=== PATIENT | male | born 1965 | race Caucasian/White ===

== ENCOUNTER 2018-10-27 07:36 | Emergency (ER) | payer MEDICAID, OTHER ==
[2018-10-27] MEDS ORDERED: Nitro 2% OINT* (Nitroglycerin) 1 INCH/PAK PAK TOPICAL ONE (07:57)
[2018-10-27] MEDS ORDERED: Aspirin 81 mg CHEW TAB* 81 MG TAB.CHEW PO ONE (07:57)
--- NOTE | 2018-10-27 08:03 | ED ---
HPI Chest Pain - HPI Summary HPI Summary: Patient is a 53 y/o M presenting to ED with complaints of intermittent, midsternal chest pain since 2129 last night, 10/26/18. He notes radiation of pain down his left arm and endorses SOB. He denies numbness/tingling. Chest pain is not present currently, but he notes it was a few minutes ago. On triage , pain is rated 7/10, nothing is noted to aggravate/alleviate Sx. PMHx of HTN and diabetes are denied, but PMHx of GERD is endorsed. FMHx of CAD, diabetes, and stroke is noted. He claims that he has not seen doctor in six years. Patient is a current smoker, uses alcohol rarely, and denies substance usage. Home medications and allergies are reviewed. 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 - History of Current Complaint Chief Complaint: EDChestPainROMI Time Seen by Provider: 10/27/18 07:47 Hx Obtained From: Patient Onset/Duration: Started Hours Ago, Resolved Timing: Intermittent Initial Severity: Severe Current Severity: None Pain Intensity: 7 Pain Scale Used: 0-10 Numeric Chest Pain Location: Mid Sternal Chest Pain Radiates: Yes Chest Pain Radiates To:: Arm - left Aggravating Factor(s): Nothing Alleviating Factor(s): Nothing Associated Signs and Symptoms: Positive: Chest Pain, Shortness of Breath. Negative: Numbness, Tingling - Allergy/Home Medications Allergies/Adverse Reactions: Allergies Allergy/AdvReac Type Severity Reaction Status Date / Time hydrocodone [From [place]] Allergy Unknown See Comment Verified 10/27/18 08:01 oxycodone Allergy Unknown Palpitation Verified 10/27/18 08:00 s/SOB povidone-iodine Allergy Unknown See Comment Verified 10/27/18 08:00 [From Betadine] soap [From Betad[place]] Allergy Unknown See Comment Verified 10/27/18 08:00 muscle relaxers Allergy Unknown See Comment Uncoded 10/27/18 08:00 Home Medications: Home Medications Ibuprofen TAB* [Advil TAB*] 400 mg PO Q6H PRN 10/27/18 [History Confirmed ] PMH/Surg Hx/FS Hx/Imm Hx Endocrine/Hematology History: Denies: Hx Bone Marrow Disease, Hx Diabetes, Hx Thyroid Disease, Hx Anemia Cardiovascular History: Denies: Hx Congestive Heart Failure, Hx Coronary Artery Disease, Hx Hypertension - KEEPS TRACK AND BP IS NORMAL, Hx Pacemaker/ICD, Other Cardiovascular Problems/Disorders Respiratory History: Denies: Hx Asthma, Hx Sleep Apnea GI History: Reports: Hx Gastroesophageal Reflux Disease - TAKES TUMS. DEPENDS ON WHAT HE EATS. GETS EVERY FEW DAYS, Other GI Disorders - stomach infecton,ABD burning, COLONOSCOPY EGD.- 7 YEARS AGO-no problems now Denies: Hx Cirrhosis, Hx Crohn's Disease, Hx Irritable Bowel, Hx Jaundice History: Denies: Hx Kidney Infection, Hx Kidney Stones, Hx Renal Disease, Other Problems/Disorders Musculoskeletal History: Reports: Other Musculoskeletal History - SURGERY ON BOTH KNEES- ABOUT 5YEARS Denies: Hx Arthritis, Hx Bursitis, Hx Tendonitis Sensory History: Reports: Hx Contacts or Glasses - glasses Denies: Hx Cataracts, Hx Hearing Aid Opthamlomology History: Reports: Hx Contacts or Glasses - glasses Denies: Hx Cataracts Neurological History: Denies: Hx Headaches, Hx Migraine, Hx Nerve Disease Psychiatric History: Denies: Hx Anxiety, Hx Depression, Hx Panic Disorder - Surgical History Surgery Procedure, Year, and Place: 2006 ABDOMINAL [place]IA REPAIR, [place]. 2013 [place]ICAL [place]IR, [place]. 2011 B[place]AL ARTHROSCOPIES, [place]. 12/2014 LEFT ELBOW [email or web address] Hx Anesthesia Reactions: Yes - 2014-WAS TOLD HE HAD PALPITATIONS DURING SURGERY , NO FOLLOWUP - Immunization History Date of Influenza Vaccine: N Infectious Disease History: No Infectious Disease History: Denies: Hx Hepatitis, Traveled Outside the [place] in Last 30 Days - Family History Known Family History: Positive: Hypertension, Diabetes, Other - FMHx of stroke - Social History Alcohol Use: Rare Substance Use Type: Reports: None Smoking Status (MU): Current Every Day Smoker Type: Cigarettes Amount Used/How Often: 1PPD Length of Time of Smoking/Using Tobacco: 5 YEARS Have You Smoked in the Last Year: Yes Review of Systems Positive: Chest Pain Positive: Shortness Of Breath Neurological: Other - negative - tingling Negative: Numbness All Other Systems Reviewed And Are Negative: Yes Physical Exam - Summary Physical Exam Summary: Appearance: Well appearing, no pain distress Skin: warm, dry, reflects adequate perfusion Head/face: normal Eyes: EOMI, MEET ENT: normal Neck: supple, non-tender Respiratory: CTA, breath sounds present Cardiovascular: RRR, pulses symmetrical Abdomen: non-tender, soft Musculoskeletal: normal, strength/ROM intact Neuro: normal, sensory motor intact, A&Ox3 Triage Information Reviewed: Yes Vital Signs On Initial Exam: Initial Vitals Temp Pulse Resp BP Pulse Ox 97.5 F 56 19 180/97 100 10/27/18 07:40 10/27/18 07:40 10/27/18 07:40 10/27/18 07:40 10/27/18 07:40 Vital Signs Reviewed: Yes Diagnostics - Vital Signs Vital Signs Temp Pulse Resp BP Pulse Ox 10/27/18 07:46 55 17 153/107 96 10/27/18 07:40 97.5 F 56 19 180/97 100 - Laboratory Result Diagrams: 10/27/18 08:02 10/27/18 08:02 Lab Statement: Any lab studies that have been ordered have been reviewed, and results considered in the medical decision making process. - Radiology CXR Radiology Interpretation Completed By: Radiologist Summary of Radiographic Findings: IMPRESSION: No radiographic evidence for acute cardiopulmonary abnormality on this. portable chest x-ray. THIS REPORT WAS REVIEWED BY DR. EASTMAN. - EKG 0737 Cardiac Rate: Bradycardia - rate of 56 BPM EKG Rhythm: Sinus Bradycardia ST Segment: Non-Specific 0850 Cardiac Rate: Bradycardia - rate of 52 BPM. EKG Rhythm: Sinus Bradycardia ST Segment: Non-Specific Re-Evaluation - Re-Evaluation First Eval Re-Evaluation Time: 10:04 Comment: Patient is insistent on leaving before completed workup. Risks of leaving were discussed, including permanent disability and . Despite extensive discussion and understanding of possible consequences, patient still desires to leave AMA. Patient was instructed to return to ED for any new or worsening symptoms, patient left AMA. Chest Pain Course/Dx - Course Course Of Treatment: Patient is a 53 y/o M presenting to ED with complaints of intermittent, midsternal chest pain since 2129 last night, 10/26/18. He notes radiation of pain down his left arm and endorses SOB. He denies numbness/ tingling. Chest pain is not present currently, but he notes it was a few minutes ago. On triage, pain is rated 7/10, nothing is noted to aggravate/ alleviate Sx. PMHx of HTN and diabetes are denied, but PMHx of GERD is endorsed. FMHx of CAD, diabetes, and stroke is noted. Patient is a current smoker, uses alcohol rarely, and denies substance usage. Physical exam is unremarkable. Bloodwork obtained. First trop 0.02. Durnig ED course, patient received protonix 40 mg PO, nitro ointment, 0.5 inch TOPICAL, and ASA 324 mg PO. CXR IMPRESSION: No radiographic evidence for acute cardiopulmonary abnormality on this. portable chest x-ray. First EKG showed sinus bradycardia with rate of 56 BPM, non-specific ST-T changes. Second EKG showed showed sinus bradycardia with rate of 52 BPM, non-specific ST-T changes. Patient is insistent on leaving before completed workup. Risks of leaving were discussed, including permanent disability and . Despite extensive discussion and understanding of possible consequences, patient still desires to leave AMA. Patient was instructed to return to ED for any new or worsening symptoms, patient left AMA. - Chest Pain Differential Diagnosis/HQI/PQRI: Angina, Chest Wall, Lower Respiratory Infection - Diagnoses Provider Diagnoses: Chest pain, Unstable angina Discharge - Sign-Out/Discharge Documenting (check all that apply): Patient Departure - AMA Patient Received Moderate/Deep Sedation with Procedure: No - Discharge Plan Condition: Good Disposition: HOME Patient Education Materials: Angina (ED), Chest Pain (ED) Referrals: Care [facility] [Outside] - 3 Days Additional Instructions: YOU ARE LEAVING FROM THE EMERGENCY DEPARTMENT AGAINST MEDICAL ADVICE. PLEASE RETURN TO ED FOR ANY NEW OR WORSENING SYMPTOMS. FOLLOW-UP WITH YOUR PRIMARY CARE PHYSICIAN WITHIN THREE DAYS. - Billing Disposition and Condition Condition: GOOD Disposition: Home - Attestation Statements Document Initiated by Brennenibpuma: Yes Documenting Scribe: KARINE WADLRON Provider For Whom Courtney is Documenting (Include Credential): ISAK EASTMAN MD Scribe Attestation: I, KARINE WALDRON, scribed for IASK EASTMAN MD on 10/27/18 at 1232. Scribe Documentation Reviewed: Yes Provider Attestation: The documentation as recorded by the KARINE orellana accurately reflects the service I personally performed and the decisions made by me, ISAK EASTMAN MD Status of Scribe Document: Viewed
[2018-10-27 08:08] LABS: ABS Basophils 0.1 10^3/ul (0-0.2); ABS Eosinophils 0.2 10^3/ul (0-0.6); ABS Lymphocytes 2.5 10^3/ul (1.0-4.8); ABS Monocytes 0.9 10^3/ul (0-0.8); ABS Neutrophils 9.1 10^3/ul (1.5-7.7); Eosinophil % 1.6 %; Hematocrit 47 % (42-52); Lymphocyte % 19.4 %; Mean Corpuscular HGB Conc 34 g/dL (31-36); Mean Corpuscular Hemoglobin 31 pg (27-31); Mean Corpuscular Volume 89 fL (80-94); Mean Platelet Volume 8.8 fL (7.4-10.4); Nucleated Red Blood Cells % 0.1; Platelet Count 240 10^3/uL (150-450); Red Blood Count 5.23 10^6 /uL (4.18-5.48); Red Cell Distribution Width 15 % (10-15); White Blood Count 12.7 10^3/uL (3.5-10.8)
[2018-10-27 08:16] LABS: INR 0.89 (0.82-1.09)
[2018-10-27 08:26] LABS: Albumin 4.3 g/dL (3.2-5.2); Albumin/Globulin Ratio 1.5 (1-3); BUN/Creatinine Ratio 11.3 (8-20); Calcium 9.5 mg/dL (8.6-10.3); EGFR African American 80.2 (>60); EGFR Non-African American 66.3 (>60); Globulin 2.9 g/dL (2-4); Total Bilirubin 0.4 mg/dL (0.2-1.0); Total Protein 7.2 g/dL (6.4-8.9)
[2018-10-27 08:27] LABS: Troponin I 0.02 ng/mL (<0.04)
[2018-10-27] MEDS ORDERED: Pantoprazole TAB * 40 MG TAB PO ONE (08:48)
[2018-10-27 10:09] VITALS: BP 141/88
== END 2018-10-27 10:08 | disposition home or self-care (01) ==
LOC: ED 07:36
DX: R07.89 Other chest pain (principal); I20.0 Unstable angina; R00.1 Bradycardia, unspecified; R06.02 Shortness of breath; M79.602 Pain in left arm; K21.9 Gastro-esophageal reflux disease without esophagitis; Z88.3 Allergy status to other anti-infective agents; Z88.5 Allergy status to narcotic agent; Z88.8 Allergy status to other drugs, medicaments and biological substances; Z82.49 Family history of ischemic heart disease and other diseases of the circulatory system; Z83.3 Family history of diabetes mellitus; Z82.3 Family history of stroke; F17.210 Nicotine dependence, cigarettes, uncomplicated
CPT/HCPCS: 36415; 71045; 80053; 83690; 84484; 85025; 85610; 93005; 99283; A9270-GY

== ENCOUNTER 2018-10-30 23:42 | Inpatient (IN) | payer MEDICAID ==
[2018-10-31] MEDS ORDERED: Aspirin TAB* 325 MG PO ONE (00:07)
[2018-10-31] MEDS ORDERED: Ondansetron INJ* 2 MG/ML VIAL IV ONE (00:20)
[2018-10-31] MEDS ORDERED: Morphine 4 MG/ML VIAL (1 ml) 4 MG/ML VIAL IV ONE (00:20)
[2018-10-31 00:37] LABS: ABS Basophils 0.1 10^3/ul (0-0.2); ABS Eosinophils 0.3 10^3/ul (0-0.6); ABS Lymphocytes 3.1 10^3/ul (1.0-4.8); ABS Monocytes 0.9 10^3/ul (0-0.8); ABS Neutrophils 6.2 10^3/ul (1.5-7.7); Eosinophil % 2.6 %; Hematocrit 45 % (42-52); Hemoglobin 15.6 g/dL (14.0-18.0); Lymphocyte % 28.8 %; Mean Corpuscular HGB Conc 35 g/dL (31-36); Mean Corpuscular Hemoglobin 31 pg (27-31); Mean Corpuscular Volume 90 fL (80-94); Mean Platelet Volume 9.2 fL (7.4-10.4); Platelet Count 249 10^3/uL (150-450); Red Blood Count 5.05 10^6 /uL (4.18-5.48); Red Cell Distribution Width 15 % (10-15); White Blood Count 10.6 10^3/uL (3.5-10.8)
[2018-10-31] MEDS ORDERED: Aspirin 81 mg CHEW TAB* 81 MG TAB.CHEW PO ONE (00:40)
[2018-10-31 00:41] LABS: INR 0.87 (0.82-1.09)
[2018-10-31 00:47] LABS: ALT 15 U/L (7-52); AST 13 U/L (13-39); Albumin 4.1 g/dL (3.2-5.2); Albumin/Globulin Ratio 1.6 (1-3); Alkaline Phosphatase 109 U/L (34-104); Anion Gap 7 mmol/L (2-11); BUN/Creatinine Ratio 12.3 (8-20); Blood Urea Nitrogen 15 mg/dL (6-24); C Reactive Protein 9.74 mg/L (<8.01); CO2 Carbon Dioxide 23 mmol/L (22-32); Chloride 109 mmol/L (101-111); EGFR African American 74.9 (>60); EGFR Non-African American 61.9 (>60); Globulin 2.6 g/dL (2-4); Glucose 118 mg/dL (70-100); Magnesium 2.2 mg/dL (1.9-2.7); Potassium 4.2 mmol/L (3.5-5.0); Sodium 139 mmol/L (135-145); Total Protein 6.7 g/dL (6.4-8.9)
[2018-10-31 00:50] LABS: Troponin I 0.27 ng/mL (<0.04)
[2018-10-31] MEDS ORDERED: Enoxaparin(*) 80 MG/0.8 ML SYR SUBCUT ONE ×2 (00:52)
[2018-10-31] MEDS ORDERED: Clopidogrel TAB* 300 MG PO ONE ×3 (00:52→13:00)
[2018-10-31] MEDS ORDERED: Heparin VIAL(*) 5000 UNITS/ML VIAL (FIVE THOUSAND) IV SCH ×2 (01:00→13:00)
--- NOTE | 2018-10-31 01:02 | ED ---
HPI Chest Pain - HPI Summary HPI Summary: Patient complains of sudden onset sternal chest pain radiating into jaw and left arm with associated shortness of breath starting at 9 PM tonight. Pain described as constant with intermittent spikes, with 10/10 pain at worst. Pain currently 4/10 here in the ED. Patient was at rest when symptoms started. Patient had similar symptoms on 10/27 and was evaluated here at the ED and left AMA. Patient states he has been having intermittent chest pain for months with associated SOB. Patient apparently has not seen PCP in 6 years. Patient saw PCP today for post ED follow-up and was told he had a heart attack on 10/27, started on beta noe today and ASA 81 mg daily. Patient also states history of cough 6 or 7 months. Patient has history of untreated hypertension, bradycardia, GERD, "minor stroke" 10 years ago. Patient is smoker, occasional EtOH, denies recreational drug use. - History of Current Complaint Chief Complaint: EDChestPainROMI Time Seen by Provider: 10/31/18 00:00 Hx Obtained From: Patient Onset/Duration: Started Hours Ago Timing: Constant Initial Severity: Severe Current Severity: Mild Pain Intensity: 4 Pain Scale Used: 0-10 Numeric Chest Pain Location: Discrete at:, Mid Sternal Chest Pain Radiates: Yes Chest Pain Radiates To:: Arm, Jaw Aggravating Factor(s): Exertion, Rest Alleviating Factor(s): Nothing Associated Signs and Symptoms: Positive: Chest Pain, Shortness of Breath - Allergy/Home Medications Allergies/Adverse Reactions: Allergies Allergy/AdvReac Type Severity Reaction Status Date / Time hydrocodone [From [place]] Allergy Unknown See Comment Verified 10/30/18 23:59 oxycodone Allergy Unknown Palpitation Verified 10/30/18 23:59 s/SOB povidone-iodine Allergy Unknown See Comment Verified 10/30/18 23:59 [From Betadine] soap [From Betadine] Allergy Unknown See Comment Verified 10/30/18 23:59 muscle relaxers Allergy Unknown See Comment Uncoded 10/30/18 23:59 Home Medications: Home Medications Aspirin [Aspir-Low] 81 mg PO DAILY 10/30/18 [History Confirmed 10/31/18] Metoprolol Tartrate TAB* [Lopressor TAB*] 25 mg PO DAILY 10/30/18 [History Confirmed 10/30/18] Esomeprazole(NF) [NEXium(NF)] 20 mg PO DAILY 10/31/18 [History Confirmed ] PMH/Surg Hx/FS Hx/Imm Hx Endocrine/Hematology History: Denies: Hx Bone Marrow Disease, Hx Diabetes, Hx Thyroid Disease, Hx Anemia Cardiovascular History: Denies: Hx Congestive Heart Failure, Hx Coronary Artery Disease, Hx Hypertension - KEEPS TRACK AND BP IS NORMAL, Hx Pacemaker/ICD, Other Cardiovascular Problems/Disorders Respiratory History: Denies: Hx Asthma, Hx Sleep Apnea GI History: Reports: Hx Gastroesophageal Reflux Disease - TAKES TUMS. DEPENDS ON WHAT HE EATS. GETS EVERY FEW DAYS, Other GI Disorders - stomach infecton,ABD burning, COLONOSCOPY EGD.- 7 YEARS AGO-no problems now Denies: Hx Cirrhosis, Hx Crohn's Disease, Hx Irritable Bowel, Hx Jaundice History: Denies: Hx Kidney Infection, Hx Kidney Stones, Hx Renal Disease, Other Problems/Disorders Musculoskeletal History: Reports: Other Musculoskeletal History - SURGERY ON BOTH KNEES- ABOUT 5YEARS Denies: Hx Arthritis, Hx Bursitis, Hx Tendonitis Sensory History: Reports: Hx Contacts or Glasses - glasses Denies: Hx Cataracts, Hx Hearing Aid Opthamlomology History: Reports: Hx Contacts or Glasses - glasses Denies: Hx Cataracts Neurological History: Denies: Hx Headaches, Hx Migraine, Hx Nerve Disease Psychiatric History: Denies: Hx Anxiety, Hx Depression, Hx Panic Disorder - Surgical History Surgery Procedure, Year, and Place: 2006 ABDOMINAL [place] RE[place]IR, [place]. 2013 [place]ICAL [place], [place]. 2010 [place]ROSCOPIES, [place]. [email or web address] Anesthesia Reactions: Yes - 2014-WAS TOLD HE HAD PALPITATIONS DURING SURGERY , NO FOLLOWUP - Immunization History Date of Influenza Vaccine: N Infectious Disease History: No Infectious Disease History: Denies: Hx Hepatitis, Traveled Outside the [place] in Last 30 Days - Family History Known Family History: Positive: Hypertension, Diabetes, Other - FMHx of stroke - Social History Alcohol Use: Rare Substance Use Type: Reports: None Smoking Status (MU): Current Every Day Smoker Type: Cigarettes Amount Used/How Often: 1PPD Length of Time of Smoking/Using Tobacco: 5 YEARS Have You Smoked in the Last Year: Yes Review of Systems Constitutional: Negative Eyes: Negative ENT: Negative Positive: Chest Pain Positive: Shortness Of Breath, Cough Gastrointestinal: Negative Genitourinary: Negative Musculoskeletal: Negative Skin: Negative Neurological: Negative Psychological: Normal All Other Systems Reviewed And Are Negative: Yes Physical Exam Triage Information Reviewed: Yes Vital Signs On Initial Exam: Initial Vitals Temp Pulse Resp BP Pulse Ox 98.4 F 57 16 122/78 96 10/30/18 23:53 10/30/18 23:53 10/30/18 23:53 10/30/18 23:53 10/30/18 23:53 Vital Signs Reviewed: Yes Appearance: Positive: Well-Appearing Skin: Positive: Warm Head/Face: Positive: Normal Head/Face Inspection Eyes: Positive: Normal Neck: Positive: Supple Respiratory/Lung Sounds: Positive: Clear to Auscultation Cardiovascular: Positive: RRR Abdomen Description: Positive: Nontender Musculoskeletal: Positive: Normal Neurological: Positive: Normal Psychiatric: Positive: Normal AVPU Assessment: Alert - [place] Coma Scale Best Eye Response: 4 - Spontaneous Best Motor Response: 6 - Obeys Commands Best Verbal Response: 5 - Oriented Coma Scale Total: 15 Diagnostics - Vital Signs Vital Signs Temp Pulse Resp BP Pulse Ox 10/31/18 00:36 16 10/31/18 00:00 57 17 94 10/30/18 23:57 58 96 10/30/18 23:56 58 122/78 96 10/30/18 23:53 98.4 F 57 16 122/78 96 - Laboratory Lab Results: Lab Results 10/31/18 10/31/18 10/31/18 Range/Units 00:18 00:22 00:22 WBC 10.6 (3.5-10.8) 10^3/uL RBC 5.05 (4.18-5.48) 10^6 /uL Hgb 15.6 (14.0-18.0) g/dL Hct 45 (42-52) % MCV 90 (80-94) fL MCH 31 (27-31) pg MCHC 35 (31-36) g/dL RDW 15 (10-15) % Plt Count 249 (150-450) 10^3/uL MPV 9.2 (7.4-10.4) fL Neut % (Auto) 59.0 % Lymph % (Auto) 28.8 % [place] % (Auto) 8.4 % Eos % (Auto) 2.6 % Baso % (Auto) 1.2 % Absolute Neuts (auto) 6.2 (1.5-7.7) 10^3/ul Absolute Lymphs (auto) 3.1 (1.0-4.8) 10^3/ul Absolute Monos (auto) 0.9 H (0-0.8) 10^3/ul Absolute Eos (auto) 0.3 (0-0.6) 10^3/ul Absolute Basos (auto) 0.1 (0-0.2) 10^3/ul Absolute Nucleated RBC 0.0 10^3/ul Nucleated RBC % 0.0 INR (Anticoag Therapy) 0.87 (0.82-1.09) Sodium 139 (135-145) mmol/L Potassium 4.2 (3.5-5.0) mmol/L Chloride 109 (101-111) mmol/L Carbon Dioxide 23 (22-32) mmol/L Anion Gap 7 (2-11) mmol/L BUN 15 (6-24) mg/dL Creatinine 1.22 H (0.67-1.17) mg/dL Est GFR ( Amer) 74.9 (>60) Est GFR (Non-Af Amer) 61.9 (>60) BUN/Creatinine Ratio 12.3 (8-20) Glucose 118 H (70-100) mg/dL Calcium 10.0 (8.6-10.3) mg/dL Magnesium 2.2 (1.9-2.7) mg/dL Total Bilirubin 0.30 (0.2-1.0) mg/dL AST 13 (13-39) U/L ALT 15 (7-52) U/L Alkaline Phosphatase 109 H (34-104) U/L Troponin I 0.27 H* (<0.04) ng/mL C-Reactive Protein 9.74 H (<8.01) mg/L Total Protein 6.7 (6.4-8.9) g/dL Albumin 4.1 (3.2-5.2) g/dL Globulin 2.6 (2-4) g/dL Albumin/Globulin Ratio 1.6 (1-3) Lipase 24 (11.0-82.0) U/L TSH Pending Result Diagrams: 10/31/18 00:18 10/31/18 00:22 Lab Statement: Any lab studies that have been ordered have been reviewed, and results considered in the medical decision making process. Chest Pain Course/Dx - Course Course Of Treatment: Patient complains of sudden onset sternal chest pain radiating into jaw and left arm with associated shortness of breath starting at 9 PM tonight. Pain described as constant with intermittent spikes, with 10/10 pain at worst. Pain currently 4/10 here in the ED. Patient was at rest when symptoms started. Patient had similar symptoms on 12/28 and was evaluated here at the ED and left AMA. Patient states he has been having intermittent chest pain for months with associated SOB. Patient apparently has not seen PCP in 6 years. Patient saw PCP today for post ED follow-up and was told he had a heart attack on 10/27, started on beta noe today and ASA 81 mg daily. Patient also states history of cough 6 or 7 months. Patient has history of one treated hypertension, GERD, "minor stroke" 10 years ago. Patient is smoker, occasional EtOH, denies recreational drug use. Patient bradycardic. History of same. Vital signs otherwise within normal limits. Creatinine 1.22. Initial troponin 0.27. EKG sinus bradycardia, no significant change from prior. Chest x-ray unremarkable. Patient admitted to hospitalist for NSTEMI. - Diagnoses Provider Diagnoses: NSTEMI (non-ST elevated myocardial infarction) Discharge - Sign-Out/Discharge Documenting (check all that apply): Patient Departure Patient Received Moderate/Deep Sedation with Procedure: No - Discharge Plan Condition: Stable Disposition: ADMITTED TO [facility] Referrals: No Primary Care Phys,NOPCP [Primary Care Provider] - - Billing Disposition and Condition Condition: STABLE Disposition: Admitted to [facility]
[2018-10-31 01:19] LABS: TSH (Thyroid Stimulating Horm) 4.62 mcIU/mL (0.34-5.60)
[2018-10-31] MEDS ORDERED: Nitro 2% OINT* (Nitroglycerin) 1 INCH/PAK PAK TOPICAL ONE ×2 (01:24)
[2018-10-31] MEDS ORDERED: Famotidine IV* 10 MG/ML 2 ML (20 mg) IV SLOW PU ONE (01:25)
[2018-10-31] MEDS ORDERED: Morphine INJ* 2 MG/ML 1 ML SYRINGE (TWO MG - NEW SYRINGE VERSION) IV PRN (01:28)
[2018-10-31] MEDS ORDERED: Al Hydrox/Mg Hydrox/Simet LIQ* 30 ML UDC PO PRN (01:28)
[2018-10-31] MEDS ORDERED: NS 0.9% 1000 ML** 1,000 ML IV SCH (01:45)
[2018-10-31 02:05] LABS: Activated Partial Thrombo Time 34.2 seconds (26.0-38.0)
[2018-10-31 03:26] LABS: Troponin I 0.36 ng/mL (<0.04)
--- NOTE | 2018-10-31 04:48 | HP ---
CC: Dr. Alfa Rae, [facility] * HISTORY AND PHYSICAL: DATE OF ADMISSION: 10/31/18 PRIMARY CARE PROVIDER: ANASTASIIA Ridley, [facility]. ATTENDING PHYSICIAN: Dr. Tasia Murphy * (dictated by Marge Martinez NP). CHIEF COMPLAINT: Chest pain. HISTORY OF PRESENT ILLNESS: Mr. Rudd is a 53-year-old male with past medical history of hypertension, who presents to the emergency room with complaints of chest pain. The patient reports that he has had chest pain related to heartburn for quite a number of years. This pain typically subsides with taking Tums or similar medication. He notes that on 10/27/18, he developed chest pain which he describes as midsternal stabbing pain, which was radiating to his left jaw and left arm. This pain did not resolve and because of his concern, he presented to the emergency room. In the emergency room, his pain did resolve after receiving nitro, and it was recommended that he be admitted, though the patient did leave AMA at that time as he needed to take his grandchildren somewhere. He has not had any pain for the last couple of days. He did see his PCP this morning, who placed him on aspirin and metoprolol. He additionally has been taking Nexium every day for the last few days. Tonight around 2200, after eating, he laid down on the couch and developed again this midsternal stabbing pain, which was 10 out of 10 at its worse, radiating to the left arm and left jaw. The pain did go away after a few minutes, and he went to lie down in bed, and at that point, the pain recurred. He did not attempt to take any Tums this evening. On my exam, the patient reports 4 out of 10 chest pain, though he states this is his baseline, secondary to heartburn, and he is quite comfortable at 4 out of 10, although towards the end of my exam, the patient's pain began to recur. His girlfriend at the bedside does note that approximately 6 years ago, he was told that he had some calcification of his aorta. I will also note that the patient reports a history of hypertension and had been on medication for some time, though has been off medication for the last few years as he did not have insurance and could not pay for it. In the emergency room, the patient did not have any acute EKG changes; however, he was noted to have a troponin of 0.27. Vitals have been stable. He was given a dose of morphine for the pain, which did help to some extent, though again during my exam, the pain recurred. He was additionally given aspirin, Plavix, Zofran, and Lovenox. Because of the concern for acute coronary syndrome , the hospitalist service was asked to evaluate for admission. PAST MEDICAL HISTORY: 1. Hypertension. PAST SURGICAL HISTORY: 1. Umbilical hernia repair. 2. Ventral hernia repair. HOME MEDICATIONS: 1. Aspirin 81 mg p.o. daily. 2. Esomeprazole 20 mg p.o. daily. 3. Metoprolol tartrate 25 mg p.o. b.i.d. ALLERGIES: HYDROCODONE, OXYCODONE, BETADINE, and MUSCLE RELAXERS. FAMILY HISTORY: The patient's mother of COPD. He reports his father had a CABG when he was about 80 years old and has a pacemaker, though he is not entirely sure why. SOCIAL HISTORY: The patient has been smoking 1-1/2 packs per day since he was a teenager, although he did quit for at least 2 years sometime within the last 10 years. He denies any alcohol or recreational drug use. 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 He lives with his girlfriend Zeinab, who will be his surrogate decision maker in the event he is unable to make his own decisions. REVIEW OF SYSTEMS: An 11-point review of systems was performed and all the pertinent positive and negative findings are in the HPI. All other systems are negative. PHYSICAL EXAMINATION GENERAL: Mr. Rudd is a well-developed, well-nourished, middle-aged white male , sitting up in bed, in no acute distress. He appears his stated age. VITAL SIGNS: Temp 98.4, heart rate 56, respiratory rate 20, oxygen saturation 96% on room air, blood pressure 127/84. HEENT: Head is atraumatic, normocephalic. Visual nicholas are grossly intact. Pupils equal, round, and reactive to light and accommodation. Extraocular movements are intact. Sclerae without icterus. Oral mucous membranes moist. NECK: Thyroid nonpalpable. Trachea midline. No lymphadenopathy. RESPIRATORY: Symmetrical chest expansion. No chest wall deformities. Lungs have fine crackles to bilateral bases. Otherwise clear throughout. CARDIOVASCULAR: Regular rate and rhythm. S1, S2 present. No murmurs, rubs, or gallops. No JVD. Chest pain is reproducible by palpation of the sternum and epigastric area. ABDOMEN: Soft, nontender to palpation. Bowel sounds normoactive throughout. EXTREMITIES: Skin warm and smooth bilaterally. No edema. No clubbing or cyanosis. NEUROLOGIC: Awake, alert, and oriented x4. Cranial nerves II through XII grossly intact. Moves all extremities. DIAGNOSTIC STUDIES/LAB DATA: WBC 10.6, RBC 5.05, hemoglobin 15.6, hematocrit 45, platelets 249. INR 0.87. Sodium 139, potassium 4.2, chloride 109, carbon dioxide 23, BUN 15, creatinine 1.22, glucose 118, troponin 0.27. EKG shows sinus bradycardia with a rate of 59. QTc 420. No ST changes. Chest x-ray to my read shows no active cardiopulmonary disease. ASSESSMENT AND PLAN: Mr. Rudd is a 53-year-old male with past medical history of hypertension, who presents to the emergency room today with complaints of chest pain and was found to have an elevated troponin. The patient will be admitted under observation for: 1. Chest pain. The patient does have a history of gastroesophageal reflux disease, though notes that this pain is different as it radiates to his left arm and jaw, and this is the second episode of his pain within the last couple of days. He did not have any EKG changes, but is noted to have an elevated troponin at 0.27. Again, on my exam, he was having minimal pain, which he stated was around his baseline, though pain began to increase. I did order some nitro paste and famotidine to see if it can resolve this chest pain. At this point, I will hold off on calling [employer]. They will certainly need to be called in the morning, though as long as we can get his chest pain under control, I think it would be fine to just watch him overnight. Again, he was given aspirin, Plavix, and Lovenox in the emergency room. He received the Lovenox around 0100. I will place him on a heparin drip, though I will time this to start at 1300. I have additionally ordered morphine for any pain that is not resolved with nitro, though I suspect that nitro will likely resolve his pain as it was quite effective for him a few days ago. We will monitor him on telemetry. He will have his next troponin drawn at 0315 and I will repeat an EKG in the morning. I will keep him NPO at this time in the event that he needs to be taken to the clinical laboratory service teacher. 2. Hypertension. The patient is not hypertensive at this point and systolics are consistently in the 120s. I will continue him on his usual dose of metoprolol, though he did just start taking this today. 3. FEN: The patient does not require any electrolyte repletion. I will place him on normal saline at 75 mL per hour as he will be NPO overnight and into the morning until he is seen by Cardiology. 4. Code status: The patient will be a full code. 5. DVT prophylaxis: According to the DVT Risk Assessment, the patient scores a 2, putting him at moderate risk. Again, he did receive 1 dose of therapeutic Lovenox and a heparin drip will tentatively be started 12 hours from that dose. TIME SPENT: Approximately 60 minutes was spent on this admission, greater than half of that time spent [id number] with the patient obtaining my history, performing my physical exam, and reviewing the plan of care. This case has been reviewed with my attending, Dr. Murphy, who is in agreement with the plan of care. MARGE MARTINEZ NP [id number]/[facility] #: [id number] RON
[2018-10-31 06:59] LABS: Troponin I 0.43 ng/mL (<0.04)
[2018-10-31 07:38] LABS: Urine Appearance Clear; Urine Bilirubin Negative (Negative); Urine Blood Negative (Negative); Urine Color Yellow; Urine Glucose Negative (Negative); Urine Ketones Negative (Negative); Urine Nitrite Negative (Negative); Urine Protein Negative (Negative); Urine Specific Gravity 1.012 (1.010-1.030); Urine Urobilinogen Negative (Negative)
[2018-10-31] MEDS ORDERED: Metoprolol Tartrate TAB* 25 MG PO SCH ×3 (09:00→21:00)
[2018-10-31] MEDS ORDERED: Aspirin EC TAB* 81 MG TAB.EC PO SCH (09:00)
[2018-10-31 09:03] LABS: CKMB ng/mL 3.2 ng/mL (0.6-6.3)
[2018-10-31 09:17] LABS: Creatine Kinase 66 U/L (10-223)
[2018-10-31] MEDS ORDERED: Iohexol 350* (CONTRAST) 500 ML MDV IV ONE (09:25)
[2018-10-31] MEDS: Pantoprazole TAB * 40 MG TAB PO SCH (09:39)
[2018-10-31 10:07] LABS: Creatine Kinase 59 U/L (10-223)
[2018-10-31 10:10] LABS: CKMB ng/mL 2.7 ng/mL (0.6-6.3)
[2018-10-31 10:11] LABS: CKMB ng/mL 2.4 ng/mL (0.6-6.3)
[2018-10-31 10:57] LABS: HDL Cholesterol 30.7 mg/dL
--- NOTE | 2018-10-31 12:31 | CONS ---
CONSULTATION REPORT: DATE OF CONSULT: 10/31/18 ATTENDING PHYSICIAN: Dr. Charles Menjivar, Cardiology.* (DICTATED BY JOSE PARMAR NP) PRIMARY PHYSICIAN: Session at the primary care [place] office. PRIMARY CATERING AND EVENTS MANAGER: None. CHIEF COMPLAINT: Chest pain. HISTORY OF PRESENT ILLNESS: This is a pleasant 53-year-old male gentleman with a notable history of untreated hypertension, relative bradycardia, gastric reflux, reported H. pylori infection in 2008 and reported TIA/CVA at [facility] approximately 10 years ago. The patient states that he has had approximately 10-year history of intermittent chest pain. The patient states that episodes of chest pain have been accelerating in regards to intensity and frequency and also characteristics of pain. He adds that for the past 1 to 2 weeks he has been noticing substernal chest pain described as an ache radiating to left upper extremity and left side of his jaw. The patient adds the symptoms can occur with shortness of breath and diaphoresis. Episodes do not appear to be related to activity. He adopted his 5-year-old granddaughter and stays at home with her , where he routinely is chasing her and exerting himself and adds that this does not appear to reproduce pain; pain has been occurring with rest. Apparently last week while driving, he had an episode of near syncope. He states he started to develop dizziness with profound right-sided headache and visual changes that he describes as squiggly lines. Episode persisted for several hours. He states the episode was so severe, he actually called his girlfriend because he did not believe that he was going to be able to continue to drive. Please note that chest pain does not occur with these episodes. Apparently on 10/26/18 after returning home from the [facility] in [place], he started to develop resting chest pain described as an ache radiating down his left arm and into his jaw around 9:30 p.m. He also had associated shortness of breath. Apparently, the episode resolved after 15 to 20 minutes and he was able to go to bed. On 10/27/18, around 5:30 in the morning after waking up and sitting at the table, he started to develop recurrent episode of chest pain radiating down his left arm and into his jaw. Apparently episode persisted, thus he presented to [facility]. The patient states that his blood pressure at the time in the emergency department was 180/97. The patient was given nitroglycerin, which he states resolved his chest pain. His troponin was normal and there was no overt ischemic EKG changes. The patient did have relative bradycardia at that time. He apparently signed out AMA. He states that he had made previous commitments to his 5-year- old granddaughter to take her to a carnival that night. Apparently while at the carnival, he had a second episode of near syncope. Please note he did not have chest pain at this time. He states he started to develop a headache with visual changes that he describes as squiggly lines and dizziness that led to near syncope. He states he stood in the shade and eventually the symptom resolved. He drove himself home. He denies any recurrence of symptoms Monday evening, Monday, or Monday. Apparently, Monday, he saw his new PCP, Prashanth, around 9 o'clock in the morning. He states his blood pressure was notably elevated at that time. He adds that his new primary physician informed to him that he had a heart attack based on the review of his symptoms. The patient was started on aspirin 81 mg a day, Lopressor 25 mg twice a day, and Nexium therapy. Around 1 p.m. while watching TV, resting, he developed an episode of substernal chest pain described as an ache radiating down his left arm into his left side of his jaw with associated shortness of breath, episode lasted an hour and then resolved. Apparently, he had no recurrence of symptoms up until 9 p.m. last night, when he was getting ready to go to bed, he developed another episode of substernal chest pain symptomatology consistent with prior episode. Given recurrent symptoms, his girlfriend drove him in to [facility]. While being evaluated in the emergency department, basic labs were obtained. He had notable troponinemia of 0.27. Blood pressure at that time was 122/78. ECG did not show any significant ischemic changes. He was given full-dose Lovenox therapy and admitted to [address] [place] [address], where we were asked to see him in consultation for chest pain, rule out ACS. He is currently asymptomatic and denies any recurrent pain since being evaluated in the emergency department, when they administered nitroglycerin. PAST MEDICAL HISTORY: Notable for: 1. Hypertension. 2. Bradycardia. 3. GERD. 4. ? TIA/CVA at [facility] 10 years ago. 5. H. pylori 2008. PAST SURGICAL HISTORY: 1. Umbilical hernia repair. 2. Left shoulder surgery. 3. Abdominal hernia repair. 4. Debridement of left epicondylitis. HOME MEDICATIONS: 1. Aspirin 81 mg a day. 2. Lopressor 25 mg twice a day. 3. Nexium. Please note that all these medications were started on 10/30/18 by primary physician. ALLERGIES: 1. LORTAB, which causes a rash. 2. OXYCODONE causes shortness of breath, hallucinations. 3. MUSCLE RELAXANTS causes tachycardia. 4. BACITRACIN, rash. 5. Allergy to CONTRAST DYE, SHELLFISH, IODINE. FAMILY HISTORY: Noncontributory. SOCIAL HISTORY: The patient is a full code. He is unemployed. Denies drug use. Denies alcohol abuse. He smokes a [id number] cigarettes a day for the last 35 years. In regards to physical activity, he states active, caring for his 5-year- old adoptive granddaughter. REVIEW OF SYSTEMS: All systems have been reviewed and otherwise negative except as above mentioned in the HPI. PHYSICAL EXAMINATION: The patient has been lying in bed, cooperative with examination, appears in no apparent distress. HEENT: Head is atraumatic, normocephalic. Oral mucosa is moist. Tongue is midline. Neck: Supple. Trachea midline. No JVD. No carotid bruits. Cardiac: Alexis S1, S2. Regular rate and rhythm. No murmur, gallop, or rub noted. Lungs: Auscultated posteriorly. No evidence of adventitious breath sounds. /GI: Abdomen is distended, nontender. Normoactive bowel sounds x4. No hepatomegaly to palpation. Extremities: Strong bilateral dorsalis pedis pulse palpated bilaterally and symmetrically. No clubbing or cyanosis appreciated. DIAGNOSTIC STUDIES/LAB DATA: Blood work reviewed 10/31/18. Sodium 139, potassium 4.2, chloride 109, carbon dioxide 23, BUN 15, creatinine 1.2. Troponin #1, 0.27; troponin #2, 0.36; troponin #3 0.43. CK-MB was normal, total CK normal. TSH was normal. White count 10.6, hemoglobin 15.6, hematocrit 45, platelets 249. INR is 0.87. ECG on 10/31/18, sinus bradycardia, rate 49, no ischemic changes appreciated. Chest x-ray from 10/31/18 per the Radiology report, no acute cardiopulmonary process appreciated. Echocardiogram pending. ASSESSMENT AND PLAN: 1. Crescendo angina with troponinemia; risk factors include untreated hypertension, ongoing tobacco abuse, and known atherosclerosis in the abdominal aorta on prior CT in 2014. Symptomatology is more typical and atypical resolved with administration of nitroglycerin. We will start Lipitor 80 mg p.o. q.h.s. Update fasting lipid panel. Reduce Lopressor to 12.5 mg p.o. b.i.d. due to relative bradycardia. Continue aspirin 81 mg a day. The patient is not on IV heparin, given last dose of Lovenox was at midnight. Continue to cycle isoenzymes. We will add on total CK and CK-MB to all prior troponin values. No overt ischemic EKG changes appreciated on today's ECG. Await echocardiogram to evaluate wall motion abnormalities and LVEF. Plan is tentative cath; however, given history of stroke with nonspecific neurologic symptoms that occur independently of chest pain, we have asked the primary team to consult Neurology. The patient is to have CTA head and neck, thus would avoid LV gram on cardiac catheterization. Renal function is at baseline. We will continue IV hydration. There has been no recurrence of symptoms since yesterday evening after administration of nitroglycerin. 2. History of transient ischemic attack/cerebrovascular accident 10 years at [facility]. Medical records have been requested. CTA head and neck pending. Neurology evaluation pending due to intermittent complaints of headache , near syncope with "vision changes." 3. History of hypertension. Currently, blood pressure is controlled on Lopressor therapy; however given relative bradycardia, I have reduced Lopressor to 12.5 mg twice a day. 4. Elevated fasting blood glucose. Hemoglobin A1c is pending. 5. Disposition. Pending course. The patient is a full code. Dr. Charles Menjivar has personally seen and examined the patient and agrees with the above assessment and plan. JOSE PARMAR NP [id number]/[facility] #: [id number] Patient seen/examined and chart reviewed. Discussed with Dr. Nathan and Ms. Parmar. See handwritten note in the chart. Agree with above plan. MTDD
[2018-10-31 12:34] LABS: CKMB ng/mL 2.1 ng/mL (0.6-6.3); Troponin I 0.31 ng/mL (<0.04)
[2018-10-31] MEDS ORDERED: Heparin DRIP 25,000 UNITS(*) 25,000 UNITS/500 ML BAG IV SCH (13:00)
[2018-10-31] MEDS ORDERED: fentaNYL* 50 MCG/ML 2 ML VIAL (100 MCG VIAL) ONE (13:53)
[2018-10-31] MEDS ORDERED: Lidocaine 1% INJ* 10 MG/ML 30 ML SDV ONE ×2 (13:53)
[2018-10-31] MEDS ORDERED: Midazolam* 1 MG/ML 5 ML VIAL (5 MG) ONE ×2 (13:53)
[2018-10-31] MEDS ORDERED: VERAPAMIL 2.5 MG/ML 2 ML VIAL ** 5 mg/2 ml ONE ×2 (13:53)
[2018-10-31] MEDS ORDERED: Heparin(*) 1000 UNIT/ML 10 ML VIAL CATH LAB IV ONE ×2 (13:53)
[2018-10-31] MEDS ORDERED: nitroGLYCERIN DRIP* 25,000 MCG/250 ML BTL ONE ×2 (13:53)
[2018-10-31] MEDS ORDERED: Iodixanol 320 (CONTRAST) 100 ML SDV ONE ×3 (13:54→15:05)
[2018-10-31] MEDS ORDERED: Heparin 2 UNITS/ML IVPREMIX* 3,000 UNIT/1,500 ML BAG IV ONE ×2 (13:55)
[2018-10-31] MEDS ORDERED: Ticagrelor* 90 MG TAB PO ONE (14:34)
[2018-10-31] MEDS ORDERED: Bivalirudin(*) 250 MG VIAL ONE (14:35)
[2018-10-31] MEDS ORDERED: Iohexol 350 (CONTRAST) 200 ML MDV IV ONE (14:42)
--- NOTE | 2018-10-31 14:59 | ECHO ---
*[facility]* [place] [address] Fax #: [phone] Transthoracic Echocardiogram Patient: Vidal Rudd : 1965 Study Date: 10/31/2018 Age: 53 Gender: M HR: 59 bpm Height: 64 in /162.6 cm BSA: 1.86 m^2 Weight: 176.6 lb /80.3 kg BMI: 30.4 kg/m^2 *Tailer Off: Christianne Macario [facility] *Referring Physician: * Keyona Parmar *Reading Physician: * Charles Menjivar MD Indications: Abnormal EKG. Chest Pain, unspecified. History: Risk factors: Current tobacco use. Hypertension. Conclusions Summary: - Left ventricle: The cavity size is normal. Wall thickness is mildly increased. Systolic function is normal. The estimated ejection fraction is 50-55%. Left ventricular diastolic function parameters are indeterminate. - Regional wall motion abnormality: Mild hypokinesis of the mid-apical inferior and apical lateral myocardium. - Right ventricle: The cavity size is normal. Wall thickness is mildly increased. 6 mm. Study data: Transthoracic echocardiogram. Procedure: Transthoracic echocardiography was performed. Image quality was adequate. Complete 2D, spectral Doppler, and color flow Doppler. Location: Bedside. Patient status: Inpatient. Patient room number: 432. No prior study is available for comparison. Rhythm: Bradycardia. Findings Left ventricle: The cavity size is normal. Wall thickness is mildly increased. Systolic function is normal. The estimated ejection fraction is 50-55%. Regional wall motion abnormalities: Mild hypokinesis of the mid-apical inferior and apical lateral myocardium. Left ventricular diastolic function parameters are indeterminate. Right ventricle: The cavity size is normal. Wall thickness is mildly increased. 6 mm. Systolic function is normal. Left atrium: The atrium is normal in size. Right atrium: The atrium is normal in size. Mitral valve: The leaflets are mildly thickened. There is no evidence of stenosis. There is no significant regurgitation. Aortic valve: The valve is trileaflet. The leaflets are normal thickness. There is no evidence of stenosis. There is trace regurgitation. Tricuspid valve: Not well visualized. There is no evidence of stenosis. There is no significant regurgitation. Pulmonic valve: Not well visualized. There is no evidence of stenosis. There is no significant regurgitation. Aorta: The aortic root appears normal. Pericardium: There is no significant pericardial effusion. Pulmonary arteries: Not well visualized. Systolic pressure can not be accurately estimated. Systemic veins: Inferior vena cava: The vessel is normal in size. There is (>= 50%) respiratory change in the IVC dimension. Measurements Left ventricle Value Ref Aortic valve continued Value Ref ARJUN, LAX 4.9 cm 4.2 - 5.8 Peak v, S 1.21 m/sec ---- ESD, LAX 3.7 cm 2.5 - 4.0 VTI, S 26.6 cm ---- FS, LAX 25 % 25 - 43 Mean grad, S 3.0 mm Hg ---- PW, ED, LAX (H) 1.1 cm 0.6 - 1.0 Peak grad, S 6.0 mm Hg ---- EF (L) 49 % 52 - 72 E', lat bipin, TDI 10.1 cm/sec >=10.0 Mitral valve Value Re f E/e', lat bipin, 8 Peak E 0.85 m/sec ---- TDI Peak A 0.67 m/sec ---- E', med bipin, TDI 8.4 cm/sec >=7.0 Decel time 198 ms -- -- E/e', med bipin, 10 Peak grad, D 2.9 mm Hg ---- TDI Peak E/A ratio 1.3 ---- E', avg, TDI 9.3 cm/sec E/e', avg, TDI 9 <=14 Pulmonic valve Value Re f Peak v, S 0.54 m/sec ---- LVOT Value Ref Peak grad, S 1.0 mm Hg ---- Peak chidi, S 0.98 m/sec Mean grad, S 2 mm Hg Aortic root Value Ref Root diam 3.3 cm <4.0 Ventricular septum Value Ref IVS, ED (H) 1.1 cm 0.6 - 1.0 Ascending aorta Value Ref AAo AP diam, S 2.9 cm ---- Right ventricle Value Ref AW thickness, ED (H) 0.6 cm 0.1 - 0.5 Aortic arch Value Ref ARJUN, LAX 3.2 cm Arch diam 3.2 cm ---- ARJUN minor ax, A4C 2.3 cm 1.9 - 3.5 mid Decending aorta Value Ref Angelo peak chidi 0.83 m/sec ---- Left atrium Value Ref AP dim, ES 4.00 cm 3.00 - Inferior vena cava Value Ref 4.00 Diam 2.0 cm ---- ML dim, A4C 3.8 cm SI dim, A4C 5.3 cm Pulmonary veins Value Ref Vol/bsa, ES, A/L 30 ml/m^2 16 - 34 Peak v, S 0.51 m/sec ---- Peak v, D 0.47 m/sec ---- Right atrium Value Ref Peak S/D ratio 1.1 ---- SI dim, ES 5.1 cm 3.4 - 5.3 A rev duration 143 ms ---- ML dim, ES, A4C 4.0 cm 2.6 - 4.4 Estimated RAP 8 mm Hg Aortic valve Value Ref Bipin diam, ED 2.3 cm Legend: (L) and (H) leta values outside specified reference range. Prepared and electronically signed by Charles Menjivar MD 10/31/2018 14:58
--- NOTE | 2018-10-31 15:23 | PN ---
Subjective Date of Service: 10/31/18 Interval History: Discussed case with RN and Keyona Parmar CLINICAL SCIENCE LIAISON. Given patient's report to Keyona that he has had recent near syncopal episodes, occasional visual disturbances, headaches, and hx of "mini stroke" 10 yrs ago; CTA ordered and Neurology consulted. On assessment by this functional tester typewriters patient is lying in bed. He reports he has had mid chest pain for several years but this Monday is was different as the pain radiated into his left jaw and left arm which has not happened previously. He reports fatigue and reports this has been ongoing for several weeks. Patient currently denies cp, left arm pain, left jaw pain, sob, visual changes, dizziness, near syncope or headache. Objective Active Medications: Al Hydrox/Mg Hydrox/Simethicone (Maalox Plus*) 30 ml PO Q6H PRN PRN Reason: INDIGESTION Aspirin (Aspirin Ec Tab*) 81 mg PO DAILY COUNT INCLUDES [facility] Last Admin: 10/31/18 09:39 Dose: 81 mg Atorvastatin Calcium (Lipitor*) 80 mg PO 2100 COUNT INCLUDES THE [facility] Sodium Chloride (Ns 0.9% 1000 Ml) 1,000 mls @ 75 mls/hr IV PER RATE COUNT INCLUDES THE [facility] Last Admin: 10/31/18 03:06 Dose: 75 mls/hr Metoprolol Tartrate (Lopressor Tab*) 12.5 mg PO BID COUNT INCLUDES THE [facility] Morphine Sulfate (Morphine Inj (Syringe))*) 2 mg IV Q4H PRN PRN Reason: PAIN - SEVERE Pantoprazole Sodium (Protonix Tab*) 40 mg PO DAILY COUNT INCLUDES THE [facility]; Protocol Last Admin: 10/31/18 09:39 Dose: 40 mg Vital Signs - 8 hr 10/31/18 10/31/18 07:22 11:15 Temperature 97.7 F 97.8 F Pulse Rate 47 48 Respiratory 16 16 Rate Blood Pressure 101/76 129/75 (mmHg) O2 Sat by Pulse 97 99 Oximetry Oxygen Devices in Use Now: None Appearance: Comfortable, NAD Eyes: No Scleral Icterus, PERRLA Ears/Nose/Mouth/Throat: Clear Oropharnyx, Mucous Membranes Moist Neck: NL Appearance and Movements; NL JVP Respiratory: Symmetrical Chest Expansion and Respiratory Effort, Clear to Auscultation Cardiovascular: NL Sounds; No Murmurs; No JVD, RRR, No Edema Abdominal: NL Sounds; No Tenderness; No Distention Lymphatic: No Cervical Adenopathy Extremities: No Clubbing, Cyanosis Skin: No Rash or Ulcers Neurological: Alert and Oriented x 3, NL Muscle Strength and Tone, - - Cranial nerves grossly intact. No dift. Coordination intact. Nutrition: - - NPO for procedure Result Diagrams: 10/31/18 00:18 10/31/18 00:22 Additional Lab and Data: Laboratory Results - last 24 hr 10/31/18 10/31/18 10/31/18 00:18 00:18 00:22 WBC 10.6 RBC 5.05 Hgb 15.6 Hct 45 MCV 90 MCH 31 MCHC 35 RDW 15 Plt Count 249 MPV 9.2 Neut % (Auto) 59.0 Lymph % (Auto) 28.8 [place] % (Auto) 8.4 Eos % (Auto) 2.6 Baso % (Auto) 1.2 Absolute Neuts (auto) 6.2 Absolute Lymphs (auto) 3.1 Absolute Monos (auto) 0.9 H Absolute Eos (auto) 0.3 Absolute Basos (auto) 0.1 Absolute Nucleated RBC 0.0 Nucleated RBC % 0.0 INR (Anticoag Therapy) 0.87 APTT 34.2 Sodium Potassium Chloride Carbon Dioxide Anion Gap BUN Creatinine Est GFR ( Amer) Est GFR (Non-Af Amer) BUN/Creatinine Ratio Glucose Hemoglobin A1c Calcium Magnesium Total Bilirubin AST ALT Alkaline Phosphatase Total Creatine Kinase CK-MB (CK-2) Troponin I C-Reactive Protein B-Natriuretic Peptide 57 Total Protein Albumin Globulin Albumin/Globulin Ratio Triglycerides Cholesterol LDL Cholesterol HDL Cholesterol Lipase TSH Urine Color Urine Appearance Urine pH Ur Specific [place] Urine Protein Urine Ketones Urine Blood Urine Nitrate Urine Bilirubin Urine Urobilinogen Ur Leukocyte Esterase Urine Glucose Urine Ascorbic Acid 10/31/18 10/31/18 10/31/18 00:22 02:51 06:31 WBC RBC Hgb Hct MCV MCH MCHC RDW Plt Count MPV Neut % (Auto) Lymph % (Auto) [place] % (Auto) Eos % (Auto) Baso % (Auto) Absolute Neuts (auto) Absolute Lymphs (auto) Absolute Monos (auto) Absolute Eos (auto) Absolute Basos (auto) Absolute Nucleated RBC Nucleated RBC % INR (Anticoag Therapy) APTT Sodium 139 Potassium 4.2 Chloride 109 Carbon Dioxide 23 Anion Gap 7 BUN 15 Creatinine 1.22 H Est GFR ( Amer) 74.9 Est GFR (Non-Af Amer) 61.9 BUN/Creatinine Ratio 12.3 Glucose 118 H Hemoglobin A1c Calcium 10.0 Magnesium 2.2 Total Bilirubin 0.30 AST 13 ALT 15 Alkaline Phosphatase 109 H Total Creatine Kinase 66 59 53 CK-MB (CK-2) 3.2 2.7 2.4 Troponin I 0.27 H* 0.36 H* 0.43 H* C-Reactive Protein 9.74 H B-Natriuretic Peptide Total Protein 6.7 Albumin 4.1 Globulin 2.6 Albumin/Globulin Ratio 1.6 Triglycerides 118 Cholesterol 200 LDL Cholesterol 146 HDL Cholesterol 30.7 Lipase 24 TSH 4.62 Urine Color Urine Appearance Urine pH Ur Specific [place] Urine Protein Urine Ketones Urine Blood Urine Nitrate Urine Bilirubin Urine Urobilinogen Ur Leukocyte Esterase Urine Glucose Urine Ascorbic Acid 10/31/18 10/31/18 10/31/18 06:31 07:20 07:59 WBC RBC Hgb Hct MCV MCH MCHC RDW Plt Count MPV Neut % (Auto) Lymph % (Auto) [place] % (Auto) Eos % (Auto) Baso % (Auto) Absolute Neuts (auto) Absolute Lymphs (auto) Absolute Monos (auto) Absolute Eos (auto) Absolute Basos (auto) Absolute Nucleated RBC Nucleated RBC % INR (Anticoag Therapy) APTT 39.8 H Sodium Potassium Chloride Carbon Dioxide Anion Gap BUN Creatinine Est GFR ( Amer) Est GFR (Non-Af Amer) BUN/Creatinine Ratio Glucose Hemoglobin A1c 5.8 H Calcium Magnesium Total Bilirubin AST ALT Alkaline Phosphatase Total Creatine Kinase CK-MB (CK-2) Troponin I C-Reactive Protein B-Natriuretic Peptide Total Protein Albumin Globulin Albumin/Globulin Ratio Triglycerides Cholesterol LDL Cholesterol HDL Cholesterol Lipase TSH Urine Color Yellow Urine Appearance Clear Urine pH 5.0 Ur Specific [place] 1.012 Urine Protein Negative Urine Ketones Negative Urine Blood Negative Urine Nitrate Negative Urine Bilirubin Negative Urine Urobilinogen Negative Ur Leukocyte Esterase Negative Urine Glucose Negative Urine Ascorbic Acid * A 10/31/18 10/31/18 12:04 12:05 WBC RBC Hgb Hct MCV MCH MCHC RDW Plt Count MPV Neut % (Auto) Lymph % (Auto) [place] % (Auto) Eos % (Auto) Baso % (Auto) Absolute Neuts (auto) Absolute Lymphs (auto) Absolute Monos (auto) Absolute Eos (auto) Absolute Basos (auto) Absolute Nucleated RBC Nucleated RBC % INR (Anticoag Therapy) APTT 39.0 H Sodium Potassium Chloride Carbon Dioxide Anion Gap BUN Creatinine Est GFR ( Amer) Est GFR (Non-Af Amer) BUN/Creatinine Ratio Glucose Hemoglobin A1c Calcium Magnesium Total Bilirubin AST ALT Alkaline Phosphatase Total Creatine Kinase 49 CK-MB (CK-2) 2.1 Troponin I 0.31 H* C-Reactive Protein B-Natriuretic Peptide Total Protein Albumin Globulin Albumin/Globulin Ratio Triglycerides Cholesterol LDL Cholesterol HDL Cholesterol Lipase TSH Urine Color Urine Appearance Urine pH Ur Specific [place] Urine Protein Urine Ketones Urine Blood Urine Nitrate Urine Bilirubin Urine Urobilinogen Ur Leukocyte Esterase Urine Glucose Urine Ascorbic Acid Microbiology and Other Data: . Assess/Plan/Problems-Billing Assessment: 53 yr old with pmh of htn and possible "mini stroke"; who presented to ED with chest pain. - Patient Problems (1) Chest pain Comment: - Reported chest pain on admission which resolved with nitro paste and has not return. - Reports 10 ys of chest pain which he attributes to acid reflux, but this weekend and prior to admission chest pain was different as pain radiated to left jaw and left arm. - Currently asymptomatic. - Patient to have cardiac cath this afternoon (2) Elevated troponin Comment: - See above - Elevated at 0.27 on admission. Peaked at 0.43. Most recent trop at 1205 is 0.31, therefore, trending down (3) History of CVA (cerebrovascular accident) Comment: - Reports hx of "mini stroke" approx 10 yrs ago when he was seen at [facility]. Records have been requested by Keyona MONZON - He reports at that time he had trouble word finding and name finding. States he would look at an object or person and know what or what they were and he was unable to say the words. Reports this lasted for several hours. (4) Hypertension Comment: - Normotensive - Recently started on Metoprolol which will be continued while inpatient (5) Tobacco abuse Comment: - Discussed smoking cessation - Smokes approx 1.5 packs per day (6) Syncope Comment: - No syncope or near syncope while admitted so far - Previous syncope could be multifactorial including dehydration, heat, cardiac , neuro. - Will continue work up and provide supportive care - Cont IVF - Obtain orthostatic vs (7) Visual changes Comment: - CTA head and neck obtained and unremarkable - Neurology consulting and we appreciate their assistance (8) DVT prophylaxis Comment: - Received Lovenox in ED - Will need to be addresse post cardiac cath Status and Disposition: Discharge home when medically stable.
[2018-10-31] MEDS ORDERED: Nitroglycerin TAB 0.4 MG* 0.4 MG TAB SL PRN (15:33)
[2018-10-31] MEDS ORDERED: Atorvastatin* 80 MG TAB PO ONE ×2 (15:45→21:00)
--- NOTE | 2018-10-31 16:28 | CONS ---
NEUROLOGY CONSULTATION: DATE OF CONSULT: 10/31/18 LOCATION: He is an inpatient in room 432. REFERRING PHYSICIAN: Dr. Nathan. CHIEF COMPLAINT: Chest pain, history of possible transient ischemic attacks. HISTORY OF PRESENT ILLNESS: Vidal Rudd is a 53-year-old right-handed man who presented to the hospital last evening with chest pain. He had an elevated troponin and a normal EKG and at this point, there is a plan to do a cardiac catheterization. He reported several episodes in the past raising a question of cerebrovascular disease. He says that about 10 years ago he had an episode where he was with friends and people that he knew, but he could not come up with their names. He ended up hospitalized somewhere out of town overnight. He had about 2 to 3 hours of difficulty producing language and then it finally resolved. He was discharged on a "blood thinner" that he does not recall the name of, but thinks it might have been warfarin. He said he had to get periodic blood tests after that, but then he stopped it and stopped going to doctors. He also has hypertension and stopped all of his medications in the past. He had another episode about 6 years ago, where he also suddenly was unable to come up with words. It again lasted several hours and he was evaluated and discharged on "a blood thinner." He stopped it sometime after that and again did not follow up with medical care. He had an episode last week where he felt very faint and lightheaded. He started to see bright squiggly lines and developed a right hemicranial headache. The visual phenomenon resolved in about 20 minutes and the headache persisted for a few hours. The following day, he had another episode of chest pain radiating to the left arm. Eventually, he was convinced by family and girlfriend to come to the hospital late last night. This past Monday, he had presented to the emergency room with chest pain radiating to the left arm, which resolved with nitroglycerin. He then left against medical advice. PAST MEDICAL HISTORY: Notable for probable transient ischemic attacks, which sound to have been thought to be cardioembolic. He has a history of hypertension, gastroesophageal reflux, and bradycardia. PAST SURGICAL HISTORY: He has had shoulder surgery and hernia repairs. MEDICATIONS: The only medication that he takes at home is aspirin 81 mg a day. He takes Nexium intermittently. He has blood pressure medicine, but he has not been taking it. ALLERGIES: He is allergic to OXYCODONE which caused shortness of breath, BACITRACIN caused a rash. He is allergic to CONTRAST DYE. FAMILY HISTORY: Noncontributory. SOCIAL HISTORY: He lives at home and is unemployed. He is the adoptive father of his 5-year-old granddaughter whom he takes care of. He does not drink alcohol, but he smokes a pack and a half of cigarettes per day. PHYSICAL EXAM: He is well nourished and well hydrated. Blood pressure most recently 129/75, heart rate is in the low 50s and seems regular, respiratory rate is 16, and oxygen saturation is 99% on room air. He is afebrile. Heart tones sound normal. I do not hear any murmurs. There are no cervical bruits. Oral mucosa is moist and atraumatic. Lungs are clear. Neurological Exam: His pupils, fundi, and eye movements are normal. Visual nicholas are full to confrontation. Facial musculature and facial sensation are intact and symmetric. Palate and tongue appear normal, tongue protrudes in the midline and there is no dysarthria. Motor exam reveals normal strength in the upper and lower extremities. There is no drift of any limb. There is no rest, sustention or action tremor. Finger -to-nose and [id number] maneuvers are normal bilaterally. Sensory exam in the limbs is intact to light touch distally in all extremities. Reflexes are intact and symmetric, other than trace right ankle reflex. Plantar responses are flexor bilaterally. He is alert and oriented and a pretty good historian. Memory is fair. Language is fluent. Attention, concentration, and fund of knowledge are adequate. DIAGNOSTIC STUDIES/LAB DATA: Includes a CT angiogram of the brain interpreted as normal. CT angiogram of the neck reveals some atherosclerosis at the carotid bifurcations, but no stenosis. Other laboratory data includes an unremarkable CBC, chemistry profile notable for a creatinine of 1.22 which is consistent with historical values going back to 2012. His glucose is 118 at presentation. His most recent troponin is 0.31. His cholesterol this morning is 200 and his LDL is 146. IMPRESSION AND PLAN: Impression is that of 2 probable dominant hemisphere transient ischemic attacks. Apparently, after his evaluations, it was felt that they were cardioembolic as he was recommended to be on anticoagulation by his description. He has not had an episode for 6 years. He did have recent episode of headache, which sounds to be a migraine with a visual scotoma. From a neurological perspective, he is cleared for cardiac catheterization. Other than vascular risk factor control, I do not have any medical recommendations at this point and we will await the results of his catheterization. I have explained my opinion to Dr. Nathan and that he is cleared for cardiac catheterization from a neurological perspective. [id number]/CPS #: [id number] RON
[2018-10-31] MEDS: Metoprolol Tartrate TAB* 25 MG PO SCH (20:44)
[2018-10-31] MEDS ORDERED: Atorvastatin* 80 MG TAB PO SCH (21:00)
[2018-11-01 04:38] LABS: ABS Basophils 0.1 10^3/ul (0-0.2); ABS Eosinophils 0.2 10^3/ul (0-0.6); ABS Lymphocytes 2.6 10^3/ul (1.0-4.8); ABS Monocytes 0.8 10^3/ul (0-0.8); ABS Neutrophils 8.4 10^3/ul (1.5-7.7); Eosinophil % 1.5 %; Hematocrit 44 % (42-52); Lymphocyte % 21.8 %; Mean Corpuscular HGB Conc 34 g/dL (31-36); Mean Corpuscular Hemoglobin 30 pg (27-31); Mean Corpuscular Volume 90 fL (80-94); Mean Platelet Volume 9.5 fL (7.4-10.4); Platelet Count 243 10^3/uL (150-450); Red Blood Count 4.93 10^6 /uL (4.18-5.48); Red Cell Distribution Width 15 % (10-15); White Blood Count 12.1 10^3/uL (3.5-10.8)
[2018-11-01 04:48] LABS: Activated Partial Thrombo Time 33.8 seconds (26.0-38.0); INR 0.95 (0.82-1.09)
[2018-11-01 05:00] LABS: ALT 15 U/L (7-52); Albumin 3.9 g/dL (3.2-5.2); Albumin/Globulin Ratio 1.6 (1-3); Alkaline Phosphatase 90 U/L (34-104); BUN/Creatinine Ratio 11.8 (8-20); Blood Urea Nitrogen 14 mg/dL (6-24); CO2 Carbon Dioxide 23 mmol/L (22-32); Calcium 9.2 mg/dL (8.6-10.3); Chloride 107 mmol/L (101-111); EGFR African American 77.1 (>60); EGFR Non-African American 63.7 (>60); Globulin 2.5 g/dL (2-4); Glucose 96 mg/dL (70-100); Sodium 138 mmol/L (135-145); Total Protein 6.4 g/dL (6.4-8.9)
[2018-11-01 05:35] LABS: Anion Gap 8 mmol/L (2-11)
[2018-11-01 06:38] LABS: Potassium Redraw 4.1 mmol/L (3.5-5.0)
--- NOTE | 2018-11-01 08:45 | PN ---
Subjective Date of Service: 11/01/18 Interval History: f/u nstemi patient denies any chest pain, jaw or arm pain no dyspnea tele sinus bradycardia Medications Active Medications: Al Hydrox/Mg Hydrox/Simethicone (Maalox Plus*) 30 ml PO Q6H PRN PRN Reason: INDIGESTION Aspirin (Aspirin 81 Mg Chew Tab*) 81 mg PO DAILY [facility] Atorvastatin Calcium (Lipitor*) 80 mg PO 2100 [facility] Clopidogrel Bisulfate (Plavix Tab*) 75 mg PO DAILY [facility] Losartan Potassium (Cozaar Tab*) 25 mg PO DAILY [facility] Metoprolol Tartrate (Lopressor Tab*) 12.5 mg PO BID [facility] Last Admin: 10/31/18 20:44 Dose: Not Given Nitroglycerin (Nitroglycerin Tab 0.4 Mg*) 0.4 mg SL Q5M PRN PRN Reason: ANGINA Pantoprazole Sodium (Protonix Tab*) 40 mg PO DAILY [facility]; Protocol Last Admin: 10/31/18 09:39 Dose: 40 mg Objective Vital Signs: Temp Pulse Resp BP Pulse Ox 97.8 F 54 16 122/97 98 11/01/18 03:35 11/01/18 07:01 11/01/18 07:01 11/01/18 07:01 11/01/18 07:01 Oxygen Devices in Use Now: None Appearance: nad, pleasant Ears/Nose/Mouth/Throat: Clear Oropharnyx, Mucous Membranes Moist Neck: NL Appearance and Movements; NL JVP Respiratory: Symmetrical Chest Expansion and Respiratory Effort Cardiovascular: NL Sounds; No Murmurs; No JVD, RRR, No Edema Abdominal: NL Sounds; No Tenderness; No Distention Extremities: No Edema Skin: No Rash or Ulcers Neurological: Alert and Oriented x 3 Laboratory Results: 11/01/18 04:10 11/01/18 06:10 cr 1.19 INR (Anticoag Therapy) 0.95 (0.82-1.09) 11/01/18 04:10 APTT 33.8 seconds (26.0-38.0) 11/01/18 04:10 Total Bilirubin 0.60 mg/dL (0.2-1.0) 11/01/18 04:10 AST 12 U/L (13-39) L 11/01/18 06:10 ALT 15 U/L (7-52) 11/01/18 04:10 Alkaline Phosphatase 90 U/L (34-104) 11/01/18 04:10 CK-MB (CK-2) 2.1 ng/mL (0.6-6.3) 10/31/18 12:05 B-Natriuretic Peptide 57 pg/mL (<=100) 10/31/18 00:18 Total Protein 6.4 g/dL (6.4-8.9) 11/01/18 04:10 Albumin 3.9 g/dL (3.2-5.2) 11/01/18 04:10 Globulin 2.5 g/dL (2-4) 11/01/18 04:10 Albumin/Globulin Ratio 1.6 (1-3) 11/01/18 04:10 Triglycerides 118 mg/dL 10/31/18 06:31 Cholesterol 200 mg/dL 10/31/18 06:31 LDL Cholesterol 146 mg/dL 10/31/18 06:31 HDL Cholesterol 30.7 mg/dL 10/31/18 06:31 TSH 4.62 mcIU/mL (0.34-5.60) 10/31/18 00:22 10/31/18 10/31/18 10/31/18 00:22 02:51 06:31 Troponin I 0.27 H* 0.36 H* 0.43 H* 10/31/18 12:05 Troponin I 0.31 H* EKG Data: ekg today shows NSR, non-specific st/t changes
[2018-11-01 08:51] LABS: Magnesium 2.2 mg/dL (1.9-2.7)
--- NOTE | 2018-11-01 08:55 | PN ---
Subjective Date of Service: 11/01/18 Interval History: f/u nstemi patient denies any chest pain, jaw or arm pain no dyspnea tele sinus bradycardia Medications Active Medications: Al Hydrox/Mg Hydrox/Simethicone (Maalox Plus*) 30 ml PO Q6H PRN PRN Reason: INDIGESTION Aspirin (Aspirin 81 Mg Chew Tab*) 81 mg PO DAILY [facility] Atorvastatin Calcium (Lipitor*) 80 mg PO 2100 [facility] Clopidogrel Bisulfate (Plavix Tab*) 75 mg PO DAILY [facility] Losartan Potassium (Cozaar Tab*) 25 mg PO DAILY [facility] Metoprolol Tartrate (Lopressor Tab*) 12.5 mg PO BID [facility] Last Admin: 10/31/18 20:44 Dose: Not Given Nitroglycerin (Nitroglycerin Tab 0.4 Mg*) 0.4 mg SL Q5M PRN PRN Reason: ANGINA Pantoprazole Sodium (Protonix Tab*) 40 mg PO DAILY [facility]; Protocol Last Admin: 10/31/18 09:39 Dose: 40 mg Objective Vital Signs: Temp Pulse Resp BP Pulse Ox 97.8 F 54 16 122/97 98 11/01/18 03:35 11/01/18 07:01 11/01/18 07:01 11/01/18 07:01 11/01/18 07:01 Oxygen Devices in Use Now: None Appearance: nad, pleasant Ears/Nose/Mouth/Throat: Clear Oropharnyx, Mucous Membranes Moist Neck: NL Appearance and Movements; NL JVP Respiratory: Symmetrical Chest Expansion and Respiratory Effort Cardiovascular: NL Sounds; No Murmurs; No JVD, RRR, No Edema Abdominal: NL Sounds; No Tenderness; No Distention Extremities: No Edema Skin: No Rash or Ulcers Neurological: Alert and Oriented x 3 Laboratory Results: 11/01/18 04:10 11/01/18 06:10 INR (Anticoag Therapy) 0.95 (0.82-1.09) 11/01/18 04:10 APTT 33.8 seconds (26.0-38.0) 11/01/18 04:10 Total Bilirubin 0.60 mg/dL (0.2-1.0) 11/01/18 04:10 AST 12 U/L (13-39) L 11/01/18 06:10 ALT 15 U/L (7-52) 11/01/18 04:10 Alkaline Phosphatase 90 U/L (34-104) 11/01/18 04:10 CK-MB (CK-2) 2.1 ng/mL (0.6-6.3) 10/31/18 12:05 B-Natriuretic Peptide 57 pg/mL (<=100) 10/31/18 00:18 Total Protein 6.4 g/dL (6.4-8.9) 11/01/18 04:10 Albumin 3.9 g/dL (3.2-5.2) 11/01/18 04:10 Globulin 2.5 g/dL (2-4) 11/01/18 04:10 Albumin/Globulin Ratio 1.6 (1-3) 11/01/18 04:10 Triglycerides 118 mg/dL 10/31/18 06:31 Cholesterol 200 mg/dL 10/31/18 06:31 LDL Cholesterol 146 mg/dL 10/31/18 06:31 HDL Cholesterol 30.7 mg/dL 10/31/18 06:31 TSH 4.62 mcIU/mL (0.34-5.60) 10/31/18 00:22 10/31/18 10/31/18 10/31/18 00:22 02:51 06:31 Troponin I 0.27 H* 0.36 H* 0.43 H* 10/31/18 12:05 Troponin I 0.31 H* Diagnostic Imaging: Transthoracic Echocardiogram Study Date: 10/31/2018 - Left ventricle: The cavity size is normal. Wall thickness is mildly increased. Systolic function is normal. The estimated ejection fraction is 50-55%. Left ventricular diastolic function parameters are indeterminate. - Regional wall motion abnormality: Mild hypokinesis of the mid-apical inferior and apical lateral myocardium. - Right ventricle: The cavity size is normal. no significant valvular abnormalities noted cardiac catheterization s/p PCI to culprit Lcx and OM residual 60% mRCA lesion EKG Data: ekg today shows NSR, non-specific st/t changes Assessment/Plan Patient doing well s/p revascularization for NSTEMI, LVEF overall normal. No recurrent angina, sustained arrhythmia, CHF or hemodynamic instability - continue aspirin 81 mg po daily - continue plavix 75 mg po daily - continue lipitor 80 mg po daily - continue metoprolol - add losartan 25 mg po daily (ordered) - ok to transfer to telemetry - patient had [facility] of [employer]OR OF [employer] follow up scheduled 11/07/2018
[2018-11-01] MEDS: Clopidogrel TAB* 75 MG PO SCH (09:26)
[2018-11-01] MEDS: Aspirin 81 mg CHEW TAB* 81 MG TAB.CHEW PO SCH (09:26)
[2018-11-01] MEDS: Losartan TAB* 25 MG PO SCH (09:27)
[2018-11-01] MEDS: Metoprolol Tartrate TAB* 25 MG PO SCH ×2 (09:27→20:20)
[2018-11-01] MEDS: Pantoprazole TAB * 40 MG TAB PO SCH (09:27)
--- NOTE | 2018-11-01 09:39 | CATH ---
CC: Charles Menjivar MD * CARDIAC CATHETERIZATION INTERVENTIONAL REPORT: DATE OF PROCEDURE: 10/31/18 - ROOM #445 INDICATION FOR PROCEDURE: Asked by Dr. Charles Menjivar to perform cardiac catheterization in light of the patient presenting with acute coronary syndrome. The procedure was coronary arteriography, balloon angioplasty of the mid circumflex, and ostium of the mid obtuse marginal branch with placement of a 2.5 x 16 mm long Synergy drug-eluting stent dilated to 2.65 to 2.7 mm. The patient was interviewed and examined on the floor of the hospital where the risks and benefits were explained. He understood them and wished to proceed. APPROACH UTILIZED: The right radial artery was assessed under ultrasound guidance and found to be acceptable for an approach and as such this was the approach utilized. EQUIPMENT UTILIZED: 1. Right radial artery sheath was a 6-Marshallese Glidesheath slender. 2. Diagnostic coronary catheter was a TIG4 5-Marshallese catheter. 3. The diagnostic wire utilized was a 260 length Arthur curved wire. 4. The guide catheter utilized was a Heartrail III 6-Marshallese IL3.5 curved guide catheter. 5. Interventional wires utilized was an All Star 190 cm length, a BMW 190 cm length guidewire. 6. Balloon angioplasty catheters utilized included a 1.5 x 12 mm long Emerge balloon, a 2.0 x 12 Emerge balloon and a 2.8 mm Emerge balloon. 7. Stent utilized was a 2.5 x 16 mm long Synergy drug-eluting stent. 8. Closure device utilized was a regular size Vasc Band by [employer]. PRECARDIAC CATHETERIZATION LABORATORY RESULTS: Hemoglobin and hematocrit of 15.6 and 45, platelet count of 249,000. BUN and creatinine of 15 and 1.22. Sodium 139, potassium 4.2, chloride 109, bicarb 23. MEDICATIONS GIVEN: Included 1 mg of Versed, 1% lidocaine locally, radial artery cocktail of 3000 mcg of nitroglycerin, 3 mg of verapamil, and 4500 units of heparin. Intracoronary nitroglycerin boluses were utilized as well. DESCRIPTION OF PROCEDURE: The patient was brought to the cardiovascular laboratory where a formal time-out was performed. He was prepped and draped in sterile fashion. Under ultrasound guidance, the right radial artery was cannulated and the sheath was placed. Diagnostic coronary arteriography was performed utilizing the TIG4 catheter. Following this, the decision was made to intervene into the circumflex artery. A CT was checked and found to be in therapeutic range. The guiding views were obtained using the guiding catheter and an All Star wire was advanced on the circumflex main body and a BMW was advanced into the third obtuse marginal branch. Kissing balloon angioplasty was performed utilizing a 1.5 mm Emerge balloon in the ostium of the obtuse marginal branch and a 2.0 x 12 mm Emerge balloon in the body of the circumflex. Following this, additional balloon dilatation was performed utilizing the 2.0 x 8 mm long Emerge balloon in the ostium of the obtuse marginal branch. Following this, the stent was deployed to high pressure and then assessed for result. At the end of the case, the catheters were removed and the sheath was removed and hemostasis was obtained with Vasc Band. A reverse Barbeau was B. The total contrast used was 215 cc of Visipaque dye. The radiation exposure included 13.7 minutes of fluoro time. The air kerma radiation was 1807 mGy. The DAP radiation was 10,237 microgray/m2. RESULTS: CORONARY ARTERIOGRAPHY: A. Right coronary artery - the right coronary artery with a dominant vessel supplying the PDA and 2 posterior left ventricular branches. There was a mild 30% proximal narrowing followed by 65% mid lesion in the right coronary artery. The rest of the right coronary artery had mild luminal irregularities, but no significant obstruction seen. B. Left coronary artery. 1. Left main - widely patent with no significant narrowing seen. 2. Left anterior descending artery. The left anterior descending artery had mild 30% to 35% stenosis seen in its proximal and mid portion. In the mid- to-distal portion, the artery became small in caliber with an area of 40% stenosis. The LAD supplied a thin first diagonal branch followed by another small caliber second diagonal branch, which had a proximal to mid area of narrowing noted to be approximately 40%. It supplied a third bifurcating diagonal branch with no significant obstruction noted in that vessel. The LAD did traverse to the apical region and minimally onto the distal inferior wall. 3. Circumflex artery - a nondominant vessel supplying a thin first obtuse marginal branch of moderate size, second obtuse marginal branch, followed by a smaller third obtuse marginal branch and in the end a low lying fourth obtuse marginal branch. There was mild ostial 15% to 20% narrowing seen. The proximal portion of circumflex had an area of 35% to 40% narrowing. Past the second diagonal branch was a critical 95% to 99% stenosis noted involving the ostium of the small caliber third obtuse marginal branch. INTERVENTION INTO CIRCUMFLEX ARTERY: A. Mid to distal portion of body of circumflex - successful reduction of critical 95% to 99% stenosis with residual stenosis was 0%, ZAINA-3 flow with no dissection seen with balloon angioplasty and placement of a 2.5 x 16 mm Synergy drug-eluting stent dilated to 2.65 to 2.7 mm. B. Intervention into ostium of third small caliber obtuse marginal branch. Successful reduction of critical 90% stenosis with balloon angioplasty with residual stenosis of less than 30% ZAINA-3 flow with no dissection seen. OVERALL ASSESSMENT: Successful intervention into critically stenosed circumflex artery, which was clearly the culprit vessel. The patient does have a 65% lesion seen in the midportion of the right coronary artery, which will need further assessment once the patient is stabilized up and about and as an outpatient. Clearly that did not represent the culprit lesion with presentation of rest discomfort. Aggressive risk factor management will need to be pursued as well. Dual antiplatelet therapy has been instituted and the hospitalist and Dr. Menjivar have utilized clopidogrel therapy along with aspirin in light of a questionable history of prior stroke in the past. We will maintain that for now. Clearly I would recommend 1 year's dual antiplatelet therapy. [id number]/CPS #: [id number] MTDD
--- NOTE | 2018-11-01 13:32 | PN ---
Subjective Date of Service: 11/01/18 Interval History: Evaluated in ICU room 6. Patient is sitting in recliner with GF at bedside. Reports he feels improved today as he is no longer have chest pain/pressure. Reports he continues to feel mildly fatigued, but not worse than previously. Denies sob, palpitations, diaphoresis, nausea, vomiting, fever, chills. Objective Active Medications: Al Hydrox/Mg Hydrox/Simethicone (Maalox Plus*) 30 ml PO Q6H PRN PRN Reason: INDIGESTION Aspirin (Aspirin 81 Mg Chew Tab*) 81 mg PO DAILY [facility] Last Admin: 11/01/18 09:26 Dose: 81 mg Atorvastatin Calcium (Lipitor*) 80 mg PO 2100 [facility] Clopidogrel Bisulfate (Plavix Tab*) 75 mg PO DAILY [facility] Last Admin: 11/01/18 09:26 Dose: 75 mg Losartan Potassium (Cozaar Tab*) 25 mg PO DAILY [facility] Last Admin: 11/01/18 09:27 Dose: 25 mg Metoprolol Tartrate (Lopressor Tab*) 12.5 mg PO BID [facility] Last Admin: 11/01/18 09:27 Dose: 12.5 mg Nitroglycerin (Nitroglycerin Tab 0.4 Mg*) 0.4 mg SL Q5M PRN PRN Reason: ANGINA Pantoprazole Sodium (Protonix Tab*) 40 mg PO DAILY [facility]; Protocol Last Admin: 11/01/18 09:27 Dose: 40 mg Vital Signs - 8 hr 11/01/18 11/01/18 11/01/18 05:30 06:00 06:01 Temperature Pulse Rate 56 49 52 Respiratory 14 15 15 Rate Blood Pressure 123/71 98/71 (mmHg) O2 Sat by Pulse 100 97 97 Oximetry 11/01/18 11/01/18 11/01/18 06:30 06:48 07:00 Temperature Pulse Rate 49 53 Respiratory 14 18 14 Rate Blood Pressure 90/64 (mmHg) O2 Sat by Pulse 96 97 Oximetry 11/01/18 11/01/18 11/01/18 07:01 07:30 08:00 Temperature 97.9 F Pulse Rate 54 55 54 Respiratory 16 18 18 Rate Blood Pressure 122/97 136/76 131/74 (mmHg) O2 Sat by Pulse 98 96 95 Oximetry 08/01/19 08/01/19 08/01/19 08:30 09:00 09:30 Temperature Pulse Rate 52 57 58 Respiratory 18 15 20 Rate Blood Pressure 135/72 122/77 131/76 (mmHg) O2 Sat by Pulse 97 98 98 Oximetry 11/01/18 11/01/18 11/01/18 10:00 10:01 10:30 Temperature Pulse Rate 56 Respiratory 14 14 Rate Blood Pressure 130/75 126/83 (mmHg) O2 Sat by Pulse 100 Oximetry Oxygen Devices in Use Now: None Appearance: Comfortable, NAD Eyes: No Scleral Icterus Ears/Nose/Mouth/Throat: Clear Oropharnyx, Mucous Membranes Moist Neck: NL Appearance and Movements; NL JVP Respiratory: Symmetrical Chest Expansion and Respiratory Effort, Clear to Auscultation Cardiovascular: NL Sounds; No Murmurs; No JVD, RRR, No Edema Abdominal: NL Sounds; No Tenderness; No Distention Lymphatic: No Cervical Adenopathy Extremities: No Clubbing, Cyanosis Skin: No Rash or Ulcers Neurological: Alert and Oriented x 3 Nutrition: Taking PO's Result Diagrams: 11/01/18 04:10 11/01/18 06:10 Additional Lab and Data: Laboratory Results - last 24 hr 10/31/18 10/31/18 10/31/18 06:31 14:39 15:08 WBC RBC Hgb Hct MCV MCH MCHC RDW Plt Count MPV Neut % (Auto) Lymph % (Auto) Tama % (Auto) Eos % (Auto) Baso % (Auto) Absolute Neuts (auto) Absolute Lymphs (auto) Absolute Monos (auto) Absolute Eos (auto) Absolute Basos (auto) Absolute Nucleated RBC Nucleated RBC % INR (Anticoag Therapy) APTT POC Activ Clotting Time 296 251 Sodium Potassium Chloride Carbon Dioxide Anion Gap BUN Creatinine Est GFR ( Amer) Est GFR (Non-Af Amer) BUN/Creatinine Ratio Glucose Hemoglobin A1c 5.8 H Calcium Magnesium Total Bilirubin AST ALT Alkaline Phosphatase Total Protein Albumin Globulin Albumin/Globulin Ratio 11/01/18 11/01/18 11/01/18 04:10 04:10 04:10 WBC 12.1 H RBC 4.93 Hgb 15.0 Hct 44 MCV 90 MCH 30 MCHC 34 RDW 15 Plt Count 243 MPV 9.5 Neut % (Auto) 69.2 Lymph % (Auto) 21.8 Tama % (Auto) 6.4 Eos % (Auto) 1.5 Baso % (Auto) 1.1 Absolute Neuts (auto) 8.4 H Absolute Lymphs (auto) 2.6 Absolute Monos (auto) 0.8 Absolute Eos (auto) 0.2 Absolute Basos (auto) 0.1 Absolute Nucleated RBC 0.0 Nucleated RBC % 0.0 INR (Anticoag Therapy) 0.95 APTT 33.8 POC Activ Clotting Time Sodium 138 Potassium TNP Chloride 107 Carbon Dioxide 23 Anion Gap 8 BUN 14 Creatinine 1.19 H Est GFR ( Amer) 77.1 Est GFR (Non-Af Amer) 63.7 BUN/Creatinine Ratio 11.8 Glucose 96 Hemoglobin A1c Calcium 9.2 Magnesium Total Bilirubin 0.60 AST TNP ALT 15 Alkaline Phosphatase 90 Total Protein 6.4 Albumin 3.9 Globulin 2.5 Albumin/Globulin Ratio 1.6 11/01/18 06:10 WBC RBC Hgb Hct MCV MCH MCHC RDW Plt Count MPV Neut % (Auto) Lymph % (Auto) Tama % (Auto) Eos % (Auto) Baso % (Auto) Absolute Neuts (auto) Absolute Lymphs (auto) Absolute Monos (auto) Absolute Eos (auto) Absolute Basos (auto) Absolute Nucleated RBC Nucleated RBC % INR (Anticoag Therapy) APTT POC Activ Clotting Time Sodium Potassium 4.1 Chloride Carbon Dioxide Anion Gap BUN Creatinine Est GFR ( Amer) Est GFR (Non-Af Amer) BUN/Creatinine Ratio Glucose Hemoglobin A1c Calcium Magnesium 2.2 Total Bilirubin AST 12 L ALT Alkaline Phosphatase Total Protein Albumin Globulin Albumin/Globulin Ratio Microbiology and Other Data: . Assess/Plan/Problems-Billing Assessment: 53 yr old with pmh of htn and possible "mini stroke"; who presented to ED with chest pain. - Patient Problems (1) NSTEMI (non-ST elevated myocardial infarction) Comment: - S/P revascularization - Plavix and ASA x1 yr per cardiology (2) Compliance with medication regimen Comment: - SW consulting as patient's prescription coverage does not start until Dec. - Discussed importance of medication compliance specifically Plavix with patient and GF (3) Chest pain Comment: - S/P revascularization for NSTEMI - No chest pain or other symptoms currently - Sinus arias on tele (4) Elevated troponin Comment: - S/P revascularization for NSTEMI - Elevated at 0.27 on admission. Peaked at 0.43 then trended down (5) History of CVA (cerebrovascular accident) Comment: - No neurological deficits - Reports hx of "mini stroke" approx 10 yrs ago when he was seen at [facility]. Records have been requested - CTA head/neck obtained yesterday and unremarkable - Neurologist consulting - Question to whether or not patient will need triple therapy given this hx or if he can be discharged on Plavix and ASA; defer to neurology (6) Hypertension Comment: - Normotensive - Recently started on Metoprolol which will be continued while inpatient - Losartan added by Cardiology (7) Tobacco abuse Comment: - Offered nicotine replacement which patient declines at this time - Discussed smoking cessation - Smokes approx 1.5 packs per day (8) Syncope Comment: - No syncope or near syncope, dizziness, or other neurological symptoms (9) Visual changes Comment: - No visual changes currently - CTA head and neck obtained and unremarkable - Neurology consulting and we appreciate their assistance (10) DVT prophylaxis Comment: - SCDs Status and Disposition: Discharge home when medically stable. Attending: Jayce Ram
[2018-11-01] MEDS ORDERED: Atorvastatin* 80 MG TAB PO SCH (21:00)
[2018-11-02 06:26] LABS: BUN/Creatinine Ratio 14.6 (8-20); Calcium 9.4 mg/dL (8.6-10.3); EGFR African American 69.6 (>60); EGFR Non-African American 57.5 (>60)
[2018-11-02] MEDS: Losartan TAB* 25 MG PO SCH (09:24)
[2018-11-02] MEDS: Clopidogrel TAB* 75 MG PO SCH (09:24)
[2018-11-02] MEDS: Pantoprazole TAB * 40 MG TAB PO SCH (09:24)
[2018-11-02] MEDS: Aspirin 81 mg CHEW TAB* 81 MG TAB.CHEW PO SCH (09:24)
[2018-11-02] MEDS: Metoprolol Tartrate TAB* 25 MG PO SCH (09:24)
--- NOTE | 2018-11-02 09:56 | PN ---
Subjective Date of Service: 11/02/18 Interval History: f/u nstemi/pci no chest, neck or arm pain no dyspnea no wrist or hand pain or sensory changes nocturnal BP dipping noted tele: SB/SR, no arrhythmias Medications Active Medications: Al Hydrox/Mg Hydrox/Simethicone (Maalox Plus*) 30 ml PO Q6H PRN PRN Reason: INDIGESTION Aspirin (Aspirin 81 Mg Chew Tab*) 81 mg PO DAILY [facility] Last Admin: 11/02/18 09:24 Dose: 81 mg Atorvastatin Calcium (Lipitor*) 80 mg PO 2100 [facility] Last Admin: 11/01/18 20:20 Dose: 80 mg Clopidogrel Bisulfate (Plavix Tab*) 75 mg PO DAILY [facility] Last Admin: 11/02/18 09:24 Dose: 75 mg Losartan Potassium (Cozaar Tab*) 25 mg PO DAILY [facility] Last Admin: 11/02/18 09:24 Dose: 25 mg Metoprolol Tartrate (Lopressor Tab*) 12.5 mg PO BID [facility] Last Admin: 11/02/18 09:24 Dose: 12.5 mg Nitroglycerin (Nitroglycerin Tab 0.4 Mg*) 0.4 mg SL Q5M PRN PRN Reason: ANGINA Pantoprazole Sodium (Protonix Tab*) 40 mg PO DAILY [facility]; Protocol Last Admin: 11/02/18 09:24 Dose: 40 mg Objective Vital Signs: Temp Pulse Resp BP Pulse Ox 97.6 F 50 14 95/63 93 11/02/18 03:15 11/02/18 03:15 11/02/18 03:15 11/02/18 03:15 11/02/18 03:15 Oxygen Devices in Use Now: None Appearance: nad, pleasant Ears/Nose/Mouth/Throat: Clear Oropharnyx, Mucous Membranes Moist Neck: NL Appearance and Movements; NL JVP Respiratory: Symmetrical Chest Expansion and Respiratory Effort, - - scattered low pitched rhonchi Cardiovascular: NL Sounds; No Murmurs; No JVD, RRR, No Edema Abdominal: NL Sounds; No Tenderness; No Distention Extremities: No Edema Skin: No Rash or Ulcers Neurological: Alert and Oriented x 3 Laboratory Results: 11/01/18 04:10 11/02/18 05:52 INR (Anticoag Therapy) 0.95 (0.82-1.09) 11/01/18 04:10 APTT 33.8 seconds (26.0-38.0) 11/01/18 04:10 Total Bilirubin 0.60 mg/dL (0.2-1.0) 11/01/18 04:10 AST 12 U/L (13-39) L 11/01/18 06:10 ALT 15 U/L (7-52) 11/01/18 04:10 Alkaline Phosphatase 90 U/L (34-104) 11/01/18 04:10 CK-MB (CK-2) 2.1 ng/mL (0.6-6.3) 10/31/18 12:05 B-Natriuretic Peptide 57 pg/mL (<=100) 10/31/18 00:18 Total Protein 6.4 g/dL (6.4-8.9) 11/01/18 04:10 Albumin 3.9 g/dL (3.2-5.2) 11/01/18 04:10 Globulin 2.5 g/dL (2-4) 11/01/18 04:10 Albumin/Globulin Ratio 1.6 (1-3) 11/01/18 04:10 Triglycerides 118 mg/dL 10/31/18 06:31 Cholesterol 200 mg/dL 10/31/18 06:31 LDL Cholesterol 146 mg/dL 10/31/18 06:31 HDL Cholesterol 30.7 mg/dL 10/31/18 06:31 TSH 4.62 mcIU/mL (0.34-5.60) 10/31/18 00:22 10/31/18 10/31/18 10/31/18 00:22 02:51 06:31 Troponin I 0.27 H* 0.36 H* 0.43 H* 10/31/18 12:05 Troponin I 0.31 H* Diagnostic Imaging: Transthoracic Echocardiogram Study Date: 10/31/2018 - Left ventricle: The cavity size is normal. Wall thickness is mildly increased. Systolic function is normal. The estimated ejection fraction is 50-55%. Left ventricular diastolic function parameters are indeterminate. - Regional wall motion abnormality: Mild hypokinesis of the mid-apical inferior and apical lateral myocardium. - Right ventricle: The cavity size is normal. no significant valvular abnormalities noted cardiac catheterization s/p PCI to culprit Lcx and OM residual 60% mRCA lesion EKG Data: ekg today sinus vs atrial rhythm 50 bpm, pac, nonpsecific st changes Assessment/Plan Patient doing well s/p revascularization for NSTEMI, LVEF overall normal. No recurrent angina, sustained arrhythmia, CHF or hemodynamic instability - continue aspirin 81 mg po daily - continue plavix 75 mg po daily - continue lipitor 80 mg po daily - continue metoprolol - continue losartan 25 mg po daily - nocturnal BP dipping and asymptomatic sinus bradycardia noted - smoking cessation emphasized - patient can be discharged from a cardiac standpoint - patient had [facility] follow up scheduled 11/07/2018
[2018-11-02 10:34] VITALS: BP 120/80
--- NOTE | 2018-11-02 13:57 | DS ---
CC: ELOY Ridley * DISCHARGE SUMMARY: DATE OF ADMISSION: 10/31/18 DATE OF DISCHARGE: 11/02/18 PRIMARY CARE PROVIDER: ELOY Ridley. ATTENDING PHYSICIAN: Dr. Ram * (dictated by Roopa Wagner NP). PRIMARY DIAGNOSIS: [id number] myocardial infarction. SECONDARY DIAGNOSES: 1. Hypertension. 2. Tobacco abuse. 3. History of transient ischemic attack. 4. Syncope. 5. Visual changes. CONSULTATIONS WHILE IN THE HOSPITAL: 1. Dr. Menjivar, cardiology. 2. Dr. Nathan, interventional cardiology. 3. Dr. Jewell, neurology. 4. Dr. Oakes, cardiology. PROCEDURES WHILE IN THE HOSPITAL: Cardiac catheterization: Successful intervention into critical stenosed circumflex artery; 65% lesion seen in midportion of right coronary artery, which will need further assessment. STUDIES WHILE IN THE HOSPITAL: 1. EKG: Impression: Sinus bradycardia. 2. Chest x-ray: Impression: No acute cardiopulmonary process. 3. Transthoracic echo: Impression: Left ventricle: The cavity size is normal. Wall thickness is mildly increased. Systolic function is normal. The estimated ejection fraction is 50% to 55%. Left ventricle diastolic function parameters are indeterminate. Regional wall motion abnormality: Mild hypokinesis of the mid apical inferior and apical lateral myocardium. Right ventricle: The cavity size is normal. Wall thickness is mildly increased at 6 mm. 4. Head CTA: Impression: Atherosclerosis. No internal carotid artery stenosis by NASCET criteria. No aneurysm, vascular malformation, occlusion, or stenosis of visualized intracranial circulation. 5. EKG: Impression: Sinus bradycardia. DISCHARGE HOME MEDICATIONS: Continued Home Medications: 1. Aspirin 81 mg p.o. daily. 2. Esomeprazole 20 mg p.o. daily. 3. Metoprolol tartrate 12.5 mg p.o. b.i.d. [place] Medications: 1. Losartan 25 mg p.o. daily. 2. Plavix 75 mg p.o. daily. 3. Atorvastatin 80 mg p.o. 2100. 4. Nitroglycerin tab 0.4 mg sublingual q.5 minutes p.r.n. for chest pain. HISTORY OF PRESENT ILLNESS/HOSPITAL COURSE: Mr. Rudd is a 53-year-old male with past medical history significant for hypertension who presented to the emergency department on 10/30/18 with complaints of chest pain. Please see history and physical dictated by Marge Martinez NP, for complete summary of the events leading up to hospitalization, but in short while in the emergency room, the patient was noted not to have any EKG changes; however, he did have an elevated troponin at 0.27. He was given morphine, which helped with pain. Given the elevated troponin, the patient was given aspirin, Plavix, Zofran, and Lovenox and he was admitted due to concern for acute coronary syndrome. The patient was admitted to telemetry floor. The patient was evaluated the morning after his admission by cardiology. During this discussion with cardiology, the patient mentioned that about 10 years ago he may have had a TIA/ CVA, but he was unsure as this was 10 years ago. He reports that he had difficulty finding words and presented to [facility]. Given this report, there was concern of his neurovascular status; therefore, Dr. Jewell was consulted prior to the patient undergoing a cardiac catheterization. In addition, he had a CTA of the head and neck as mentioned above. Dr. Jewell cleared the patient for the cardiac catheterization from a neurological standpoint; therefore, he underwent the catheterization later that day on . As mentioned above, the patient had a stent placed in the circumflex and there was also concern of a 65% lesion in his RCA. After cardiac catheterization, the patient was transferred to ICU and has recovered nicely. The patient is now on telemetry again and is symptom-free. While on telemetry, the patient has remained sinus arias. The patient is stable for discharge home. REVIEW OF SYSTEMS: The patient denies chest pain/pressure, shortness of breath , fatigue, indigestion, nausea, vomiting, diaphoresis. A 14-point review of systems was completed and all were negative. PHYSICAL EXAMINATION: Vital Signs: Temp 97.6, HR 51, RR 18, O2 saturation 98% on room air, BP 120/80. General: Mr. Rudd is a 53-year-old male who is sitting in the chair. Appears to be in no acute distress. Appears stated age. HEENT: EOMs intact. PERRLA. Oral mucosa is moist without lesions. Posterior pharynx is clear. Neck: Supple. Cardiac: S1, S2 present. No murmurs, rubs, or gallops. Regular rate and rhythm. Respiratory: No accessory muscle use. Clear to auscultation. Good aeration. No rhonchi, wheezes, or rubs. Abdomen: Soft, nontender. Bowel sounds normoactive. Extremities: No edema. No clubbing or cyanosis. Pedal pulses 2+ bilaterally. Musculoskeletal: No pain or deformities. Skin: Skin is grossly intact. Dressing to right radial wrist is clean, dry, and intact. Neuro: Neuro exam is grossly intact. No focal deficits or weakness. DIAGNOSTIC STUDIES/LAB DATA: Labs: WBC 12.1, hemoglobin 14, hematocrit 44, platelets 243. Sodium 138, potassium 4.0, chloride 106, carbon dioxide 23, BUN 19, creatinine 1.30. Triglycerides 118, cholesterol 200, LDL 146, HDL 30.7. DISCHARGE PLAN/FOLLOWUP: 1. NSTEMI: As mentioned above, the patient is status post revascularization of the circumflex. The patient will continue aspirin and Plavix x1 year. The patient will follow up with Dr. Davenport for reassessment of radial access site. The patient will follow with Dr. Menjivar from cardiology. 2. Compliance with medication regimen: There was concern about compliance with medication regimen given the patient's prescription coverage does not start till December. Fortunately, our pharmacy is able to fill his medications and I will be supplying him with 60 days' worth of Plavix and he is agreeable to pay for this. 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 The patient states understanding. 3. History of CVA: The patient reported "mini stroke" approximately 10 years ago at [facility]. Records requested multiple times and received different records, all of which were in regards to abdominal pain, but nothing regarding a stroke. Neurology was consulted, and a head and neck CTA was obtained, which is unremarkable. I have discussed the patient's discharge with neurology and they are fine with his discharge and do not need to see him in followup, unless he has return of symptom. 4. Hypertension: The patient should continue his metoprolol, which he was started on prior to admission. He should continue losartan. 5. Tobacco abuse. I have discussed at length the risks of tobacco abuse and cardiac illness. The patient states understanding and plans to quit. I have offered nicotine replacement, which he declines at this time. 6. Syncope: The patient reports near syncope the day prior to presenting to the emergency room. He has had no syncopal or near syncopal symptoms while admitted. I suspect this is secondary to his cardiac illness. We have discussed the importance of slowly changing positions and staying hydrated. 7. Visual changes: The patient reported visual changes prior to syncopal episodes. Once again, neurology is consulted and there has been a head and neck CTA, which was unremarkable. I have encouraged the patient to follow up with his primary care and if he has any return of symptoms, to be referred back to neurology. The patient states understanding. 8. Followup: There has been a scheduled followup for the patient to see Dr. Davenport and Dr. Menjivar. The patient has already called his primary care provider and will see him Monday, next week. 9. Education: The patient and girlfriend were educated on signs and symptoms of new or worsening condition and when to return to the emergency department. Both stated understanding. This is a summarized report of a complex medical history and hospital stay. For further details, please see the entire medical record. TIME SPENT: Approximately 40 minutes were spent on this discharge; greater than half the time was spent [id number] with the patient discussing discharge plans and instructions. This plan was discussed with my attending, Dr. Ram, who is in agreement with my plan of care. ROOPA WAGNER NP [id number]/[facility] #: [id number] [facility] HOSPITALJorge Alberto
== END 2018-11-02 13:10 | disposition home or self-care (01) | DRG 174 ==
LOC: ED 23:42 → MEDTELE 10-31 01:28 → OBSVTOIN 10-31 15:34 → ICU 10-31 15:38 → MEDTELE 11-01 10:01
PROVIDERS: ADMIT Hospitalist; ATTEND Hospitalist
PROC: 02703ZZ Dilation of Coronary Artery, One Artery, Percutaneous Approach (ICD-10-PCS; 2018-10-31)
PROC: B211YZZ Fluoroscopy of Multiple Coronary Arteries using Other Contrast (ICD-10-PCS; 2018-10-31)
PROC: 027034Z Dilation of Coronary Artery, One Artery with Drug-eluting Intraluminal Device, Percutaneous Approach (ICD-10-PCS; principal; 2018-10-31 14:00)
DX: I21.4 Non-ST elevation (NSTEMI) myocardial infarction (principal); I10 Essential (primary) hypertension; R55 Syncope and collapse; R00.1 Bradycardia, unspecified; F17.210 Nicotine dependence, cigarettes, uncomplicated; K21.9 Gastro-esophageal reflux disease without esophagitis; R73.9 Hyperglycemia, unspecified; I25.118 Atherosclerotic heart disease of native coronary artery with other forms of angina pectoris; Z86.73 Personal history of transient ischemic attack (TIA), and cerebral infarction without residual deficits; Z79.82 Long term (current) use of aspirin; Z79.02 Long term (current) use of antithrombotics/antiplatelets; Z88.5 Allergy status to narcotic agent; Z88.8 Allergy status to other drugs, medicaments and biological substances; Z88.1 Allergy status to other antibiotic agents; Z82.5 Family history of asthma and other chronic lower respiratory diseases; Z82.49 Family history of ischemic heart disease and other diseases of the circulatory system; Z83.3 Family history of diabetes mellitus; Z56.0 Unemployment, unspecified; Z91.041 Radiographic dye allergy status; Z91.013 Allergy to seafood
CPT/HCPCS: 36415; 70496; 70498; 71046; 76937; 80048; 80053; 80061; 81003; 82550; 82553; 83036; 83690; 83735; 83880; 84443; 84484; 85025; 85347; 85610; 85730; 86140; 87641; 93005; 93306; 93454; 99156; 99157; 99406; A9270-GY; C1725; C1769; C1876; C9600-LC; G0378; J0583; J1644; J1650; J2250; J2270; J2405; J3010; Q9967

== ENCOUNTER 2018-12-27 09:53 | Emergency (ER) | payer OTHER ==
--- OUTSIDE RECORDS SUMMARY | 2018-12-27 10:03 | XMS REPORT | Continuity of Care Document ---
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 Onset: 12/23/2014 Chronic kidney disease stage 3 Ned Davenport MD, [facility], Onset: 11/07/2018 [facility] Acute subendocardial infarction Ned Davenport MD, FACC, Onset: 11/07/2018 [facility] Late effect of sprain AND/OR strain Smooth Jewell M.D. Onset: 08/02/2016 without tendon injury Encounter for other orthopedic Smooth Jewell M.D. Onset: 03/11/2015 aftercare Social History Type Date Description Comments Sex Unknown ETOH Use Denies alcohol use Tobacco Use Start: Unknown End: Patient is a former smoker Smoking Status Reviewed: 12/17/18 Patient is a former smoker Exercise Does not exercise Type/Frequency Exercise Exercises regularly walking at work Type/Frequency continuiously 8 hours Allergies, Adverse Reactions, Alerts Active Allergies Reaction Severity Comments Date Betadine Itching 11/07/2018 Lipitor GI upset Mild 12/17/2018 Inactive Allergies NKDA 08/05/2014 Medications Active Medications SIG Qnty Indications Ordering Date Provider Blood Pressure Monitor 1 machine with 1 1units I10 Keyona Parmar, 2018 Deluxe/Automatic blood pressure CLINICAL STAFF PHARMACIST cuff adult Device regular size Losartan Potassium 1 by mouth every 90tabs Ned Laura 11/06/2018 25mg day MD Ethel, Tablets FAC, [facility] Plavix 1 by mouth every 90tabs Ned Laura 11/06/2018 75mg Tablets day MD Ethel, FACJaqueline, ABHI Nitroglycerin 1 sl q5mins x3 as 25tabs Ned Laura 11/06/2018 0.4mg needed for chest MD Ethel, Tablets Sub pain ABHI ORTIZ Tylenol 2 capsules three Unknown 325mg Capsules times a day Aspirin 81 1 by mouth every Unknown 81mg Tablets day Metoprolol Succinate 1/2 by mouth Unknown ER every day 25mg Tablets ER 24HR History Medications Rosuvastatin Calcium 1 by mouth every 90tabs E78.00 Keyona Parmar, 2018 - day before CLINICAL STAFF PHARMACIST 12/17/2018 20mg Tablets bedtime. Lipitor 2 tabs by mouth 30tabs E78.00 Charles Waller 11/15/2018 - 20mg Tablets every night Cesia Menjivar 12/17/2018 Lipitor 1 by mouth every Marcis T. 11/06/2018 - 80mg Tablets day. Pt takes at MD Ethel, 11/15/2018 2100 ABHI ORTIZ Medications Administered in Office Medication SIG Qnty Indications Ordering Provider Date Depomedrol 40MG DAVID Onofre 06/02/2015 Injection Depomedrol 40MG Smooth Jewell M.D. 04/23/2015 Injection Celestone 3 mg and 3mg DAVID Onofre 09/30/2014 Injection Immunizations Description No Information Available Vital Signs Date Vital Result Comment 12/17/2018 3:19pm Height 64 inches 5'4" Weight 185.12 lb with shoes Heart Rate 60 /min radial, regular BP Systolic Sitting 176 mmHg LA, reg cuff BP Diastolic Sitting 92 mmHg LA, reg cuff BMI (Body Mass Index) 31.8 kg/m2 Ejection Fraction 50%-55% echo 10/31/18 11/15/2018 3:16pm Height 64 inches 5'4" Weight 181.00 lb Heart Rate 54 /min BP Systolic Sitting 121 mmHg Rue reg cuff BP Diastolic Sitting 82 mmHg Rue reg cuff BP Systolic Standing 121 mmHg Rue reg cuff BP Diastolic Standing 82 mmHg Rue reg cuff BMI (Body Mass Index) 31.1 kg/m2 Ejection Fraction 50-55% Results Description No Information Available Procedures Date Code Description Status 12/17/2018 51068 EKG Tracing & Interpretation Completed 11/07/2018 94734 EKG Tracing & Interpretation Completed 10/31/2018 97505 Cath PLMT&NJX L Ventriculog Img S&I Completed 10/31/2018 54973 ECHO Transthorasic Realtime 2D W Doppler & Color Flow Hosp Completed 10/31/2018 25561 Revascularization Acute Total/Subtotal Occlusion Completed Medical Devices Description No Information Available Encounters Type Date Location Provider Dx Diagnosis Office Visit 11/15/2018 [facility] Charles Waller I21.4 Non-St elevation 3:20p Of Cost Clerk Cesia Menjivar (Nstemi) myocardial infarction N18.3 Chronic kidney disease, stage 3 (moderate) I25.10 [place] heart disease [place] coronary artery w/o ang pctrs E78.00 Pure hypercholesterolemia, unspecified Office Visit 11/07/2018 3:20p [facility] Ned Laura I21.4 Non-St elevation Of Cost Clerk [facility] MD Ethel, (Nstemi) FACC, FSCAI myocardial infarction N18.3 Chronic kidney disease, stage 3 (moderate) Office Visit 11/02/2018 3:52p [facility] Shahriar Martinez I21.4 Non-St elevation Of Cost Clerk Oakes, DO ([place]stemi) FACC myocardial infarction I25.10 Athscl heart disease of [place] coronary artery w/o ang pctrs Z98.61 Coronary angioplasty status Office Visit 11/02/2018 10:55a [facility] I21.4 Non-St elevation Assoc,pc NICOLÁS Wise (Nstemi) Hospitalists myocardial infarction I10 Essential (primary) hypertension Z72.0 Tobacco use R55 Syncope and collapse H53.9 Unspecified visual disturbance Z86.73 Prsnl hx of TIA (TIA), and cereb infrc w/o resid deficits Office Visit 11/01/2018 4:48p [facility] Shahriar Martinez I21.4 Non-St elevation Of Cost Clerk Oakes, DO ([place]stemi) FACC myocardial infarction I25.10 Athscl heart disease of [place] coronary artery w/o ang pctrs Z98.61 Coronary angioplasty status Office Visit 11/01/2018 10:54a [facility] I21.4 Non-St elevation Assoc,pc Shortle, CLINICAL STAFF PHARMACIST (Nstemi) Hospitalists myocardial infarction R07.9 Chest pain, unspecified R79.89 Other specified abnormal findings of blood chemistry I10 Essential (primary) hypertension Z72.0 Tobacco use R55 Syncope and collapse Z86.73 Prsnl hx of TIA (TIA), and cereb infrc w/o resid deficits Office Visit 10/31/2018 11:55a [facility], I20.0 Unstable angina CLINICAL STAFF PHARMACIST R79.89 Other specified abnormal findings of blood chemistry Z86.73 Prsnl hx of TIA (TIA), and cereb infrc w/o resid deficits I10 Essential (primary) hypertension I21.4 Non-St elevation (Nstemi) myocardial infarction Office Visit 10/31/2018 10:54a [facility] Marge Michelle, R07.9 Chest pain, Assoc,pc CLINICAL STAFF PHARMACIST unspecified Hospitalists I10 Essential (primary) hypertension Assessments Date Code Description Provider 12/17/2018 N18.3 Chronic kidney disease, stage 3 Keyona Parmar NP (moderate) 12/17/2018 I25.10 Atherosclerotic heart disease of [place] Keyona ParmarNICOLÁS coronary artery without angina pectoris 12/17/2018 E78.00 Hypercholesterolemia Keyona Parmar NP 12/17/2018 I10 Essential (primary) hypertension Keyona Parmar NP 12/17/2018 R53.83 Other fatigue Keyona MartinezNICOLÁS tobias 11/15/2018 I21.4 Non-St elevation (Nstemi) myocardial Charles Menjivar M.D. infarction 11/15/2018 N18.3 Chronic kidney disease, stage 3 Charles Menjivar M.D. (moderate) 11/15/2018 I25.10 Atherosclerotic heart disease of [place] Charles Menjivar M.D. coronary artery without angina pectoris 11/15/2018 E78.00 Hypercholesterolemia Charles Menjivar M.D. 11/07/2018 I21.4 Non-St elevation (Nstemi) myocardial Ned Davenport MD, FAC, [facility] 11/07/2018 N18.3 Chronic kidney disease, stage 3 Ned Davenport MD, FACC, (moderate) FSCAI 11/02/2018 I21.4 Non-St elevation (Nstemi) myocardial Shahriar Oakes, DO FACC infarction 11/02/2018 I21.4 Non-St elevation (Nstemi) myocardial Colette Shortle, CLINICAL STAFF PHARMACIST infarction 11/02/2018 I25.10 Atherosclerotic heart disease of [place] Shahriar Oakes, DO FACC coronary artery without angina pectoris 11/02/2018 I10 Essential (primary) hypertension Colette Shortle, CLINICAL STAFF PHARMACIST 11/02/2018 Z98.61 Coronary angioplasty status Shahriar Oakes, DO FACC 11/02/2018 Z72.0 Tobacco use Colette Shortle, CLINICAL STAFF PHARMACIST 11/02/2018 R55 Syncope and collapse Colette Shortle, CLINICAL STAFF PHARMACIST 11/02/2018 H53.9 Unspecified visual disturbance Colette Shortle, CLINICAL STAFF PHARMACIST 11/02/2018 Z86.73 Personal history of transient ischemic Colette Shortle, CLINICAL STAFF PHARMACIST attack (TIA), and cerebral infarction without residual deficits 11/01/2018 I21.4 Non-St elevation (Nstemi) myocardial Shahriar Oakes, DO FACC infarction 11/01/2018 I25.10 Atherosclerotic heart disease of [place] Shahriar Oakes, DO FACC coronary artery without angina pectoris 11/01/2018 Z98.61 Coronary angioplasty status Shahriar Oakes, DO FACC 11/01/2018 I21.4 Non-St elevation (Nstemi) myocardial Colette Shortle, CLINICAL STAFF PHARMACIST infarction 11/01/2018 R07.9 Chest pain, unspecified Colette Shortle, CLINICAL STAFF PHARMACIST 11/01/2018 R79.89 Other specified abnormal findings of Colette Shortle, CLINICAL STAFF PHARMACIST blood chemistry 11/01/2018 I10 Essential (primary) hypertension Colette Shortle, CLINICAL STAFF PHARMACIST 11/01/2018 Z72.0 Tobacco use Colette Shortle, CLINICAL STAFF PHARMACIST 11/01/2018 R55 Syncope and collapse Colette Shortle, CLINICAL STAFF PHARMACIST 11/01/2018 Z86.73 Personal history of transient ischemic Colette Shortle, CLINICAL STAFF PHARMACIST attack (TIA), and cerebral infarction without residual deficits 10/31/2018 R07.9 Chest pain, unspecified Marge Michelle, CLINICAL STAFF PHARMACIST 10/31/2018 I21.4 Non-St elevation (Nstemi) myocardial Dov Nathan M.D., [facility], infarction [facility] 10/31/2018 I10 Essential (primary) hypertension Marge Martinez, CLINICAL STAFF PHARMACIST 10/31/2018 I25.10 Atherosclerotic heart disease of [place] Dov Nathan M.D. , [facility], coronary artery without angina pectoris [facility] 10/31/2018 R94.31 Abnormal electrocardiogram [ECG] [EKG] Charles Menjivar M.D. 10/31/2018 I20.0 Unstable angina Keyona Parmar NP 10/31/2018 R79.89 Other specified abnormal findings of Keyona Parmar NP blood chemistry 10/31/2018 Z86.73 Personal history of transient ischemic Keyona Parmar NP attack (TIA), and cerebral infarction without residual deficits 10/31/2018 I10 Essential (primary) hypertension Keyona Parmar NP 10/31/2018 I21.4 Non-St elevation (Nstemi) myocardial Keyona Parmar NP infarction Plan of Treatment Future Appointment(s):01/17/2019 3:00 pm - Keyona Parmar NP at [facility]12/17/2018 - Keyona Parmar NPN18.3 Chronic kidney disease, stage 3 ( moderate)I25.10 Atherosclerotic heart disease of [place] coronary artery without angina pectorisNew Orders:Stress Test, Exercise Nuclear, Ordered: Follow up:follow up after stress test in one month with Keyona Parmar 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 Start Rosuvastatin 20mg by mouth daily.I10 Essential (primary) hypertensionNew Medication:Blood Pressure Monitor Deluxe/Automatic - 1 machine with 1 blood pressure cuff adult regular sizeRecommendations:Your blood pressure goal is less than 130/80 If you notice elevated blood pressures on your home monitor please call me.R53.83 Other fatigueRecommendations:please follow up with Vin LYONS and your dentist about your tooth infection. Functional Status Description No Information Available Mental Status Description No Information Available Referrals Description No Information Available
--- OUTSIDE RECORDS SUMMARY | 2018-12-27 10:03 | XMS REPORT | Continuity of Care Document ---
:1965 External Reference #:[id number] Author Name Jennifer Poe Care Team Providers Name Role Phone Audie Wilson MD Primary Care Physician Unavailable Payers Date Identification Numbers Payment Provider Subscriber Onset: 2014 Policy Number: [id number] State [employer] Fund Vidal Rudd Group Number: [id number] [address] [id number] Group Name: [id number] [place] [address] PayID: [id number] PayID: [id number] Controverted Vidal Rudd Problems Active Problems Provider Date Lateral epicondylitis Smooth Jewell M.D. Onset: 12/23/2014 Late effect of sprain AND/OR strain without Smooth Jewell M.D. Onset: 08/02 tendon injury Encounter for other orthopedic aftercare Smooth Jewell M.D. 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 ETOH Use Denies alcohol use Tobacco Use Start: Unknown Heavy tobacco smoker (more than 10 cigarettes/day) Smoking Status Reviewed: 03/02/17 Heavy tobacco smoker (more than 10 cigarettes/day) Exercise Type/Frequency Does not exercise Allergies, Adverse Reactions, Alerts Description No Known Drug Allergies Medications Active Medications SIG Qnty Indications Ordering Provider Date Ibuprofen take one tab three Unknown 800mg Tablets times a day as needed for pain Tylenol 2 capsules three Unknown 325mg Capsules times a day History Medications Gabapentin two capsules at 60caps Smooth Jewell, 02/12/2015 - 300mg bedtime for nerve M.DMoi 08/01/2016 Capsules pain Percocet take 1-2 pills 90tabs M77.12 Smooth Jewell, 12/03/2014 - 5-325mg every 4-6 hours M.D. 08/01/2016 Tablets as needed for pain Voltaren apply to the 1tube 923.11 Smooth Jewell, 09/30/2014 - 1% Gel elbow as needed M.D. 10/28/2014 for pain, maximum 3 times a day Naproxen 1 by mouth twice 60tabs 923.11 Smooth Jewell, 09/02/2014 - 500mg a day M.D. 09/30/2014 Tablets Tramadol HCL 1-2 tablets every Unknown - 50mg 6 hours as needed 10/28/2014 Tablets Flexeril 1 by mouth three Unknown - 10mg times a day as 10/28/2014 Tablets needed Medications Administered in Office Medication SIG Qnty Indications Ordering Provider Date Depomedrol 40MG DAVID Onofre 06/02/2015 Injection Depomedrol 40MG Smooth Jewell M.D. 04/23/2015 Injection Celestone 3 mg and 3mg DAVID Onofre 09/30/2014 Injection Vital Signs Date Vital Result Comment 03/02/2017 9:08am Height 64 inches 5'4" Weight 160.00 lb Heart Rate 80 /min BP Systolic Recheck 130 mmHg BP Diastolic Recheck 84 mmHg Respiratory Rate 16 /min Body Temperature 97.8 F BMI (Body Mass Index) 27.5 kg/m2 08/02/2016 1:51pm Height 64 inches 5'4" Weight 186.00 lb Heart Rate 76 /min BP Systolic Recheck 130 mmHg BP Diastolic Recheck 84 mmHg Respiratory Rate 16 /min Body Temperature 98.2 F BMI (Body Mass Index) 31.9 kg/m2 08/07/2015 1:38pm Height 64 inches 5'4" Weight 175.00 lb Heart Rate 68 /min BP Systolic 118 mmHg BP Diastolic 76 mmHg Pain Level 6 BMI (Body Mass Index) 30.0 kg/m2 06/02/2015 10:37am Height 64 inches 5'4" Weight 175.00 lb Pain Level 7 BMI (Body Mass Index) 30.0 kg/m2 05/21/2015 10:01am Height 64 inches 5'4" Weight 175.00 lb BMI (Body Mass Index) 30.0 kg/m2 04/23/2015 12:01pm Height 64 inches 5'4" Weight 175.00 lb Pain Level 4 BMI (Body Mass Index) 30.0 kg/m2 03/11/2015 9:49am Height 64 inches 5'4" Weight 175.00 lb BMI (Body Mass Index) 30.0 kg/m2 02/11/2015 10:30am Height 64 inches 5'4" Weight 175.00 lb Pain Level 6 BMI (Body Mass Index) 30.0 kg/m2 01/14/2015 10:16am Height 64 inches 5'4" Weight 175.00 lb Pain Level 4 constant BMI (Body Mass Index) 30.0 kg/m2 01/02/2015 10:04am Height 64 inches 5'4" Weight 176.00 lb Pain Level 5 BMI (Body Mass Index) 30.2 kg/m2 12/23/2014 11:52am Height 64 inches 5'4" Weight 176.00 lb Body Temperature 97.8 F Pain Level 7 BMI (Body Mass Index) 30.2 kg/m2 12/03/2014 2:54pm Height 64 inches 5'4" Weight 176.00 lb Heart Rate 67 /min BP Systolic 134 mmHg BP Diastolic 99 mmHg Body Temperature 98.4 F Pain Level 5 BMI (Body Mass Index) 30.2 kg/m2 10/28/2014 9:31am Height 64 inches 5'4" Weight 176.00 lb Pain Level 4 with shooting pain up to 10 BMI (Body Mass Index) 30.2 kg/m2 09/30/2014 1:50pm Height 64 inches 5'4" Weight 176.00 lb Pain Level 6 BMI (Body Mass Index) 30.2 kg/m2 09/02/2014 2:57pm Height 64 inches 5'4" Weight 176.00 lb Pain Level 7 BMI (Body Mass Index) 30.2 kg/m2 08/05/2014 9:14am Height 64 inches 5'4" Weight 176.00 lb Heart Rate 65 /min BP Systolic Sitting 138 mmHg BP Diastolic Sitting 96 mmHg Pain Level 5 BMI (Body Mass Index) 30.2 kg/m2 Procedures Date Code Description Status 06/02/201564405 Inject/Drain Joint/Bursa Major W/O US Completed 06/02/2015 Inject/Drain Joint/Bursa Major W/O US Completed 04/23/2015 Inject Tendon Sheath Or Ligament Aponeurosis Eg Plantar Completed Fascia 12/23/2014 54014 Long Arm Splint Application Completed 12/11/2014 13276 Tenotomy Elbow W/Debridement Soft Tissue And Or Bone Open Completed 12/11/2014 48824 Tenotomy Elbow W/Debridement Soft Tissue And Or Bone Open Completed 09/30/201418033 Injection Single Tendon Origin/Insertion Completed Encounters Type Date Location Provider Dx Diagnosis Office Visit 03/02/2017 Orthopedic Smooth Jewell, S46.212S Strain of 9:00a Services Of Calender Supervisor AT .D. musc/fasc/tend [place] prt biceps, left arm, sequela Office Visit 08/02/2016 Nagi Jewell, S46.212S Strain of 2:00p Services Of Calender Supervisor AT .D. musc/fasc/tend [place] prt biceps, left arm, sequela R20.8 Other disturbances of skin sensation M77.12 Lateral epicondylitis, left elbow Office Visit 06/02/2015 Orthopedic Lisa M19.012 Primary 11:00a Services Of DAVID Chase osteoarthritis, left C.M.A. shoulder M77.12 Lateral epicondylitis, left elbow M77.12 Lateral epicondylitis, left elbow S46.212A Strain of musc/fasc/tend prt biceps, left arm, init S46.212A Strain of musc/fasc/tend prt biceps, left arm, init M19.012 Primary osteoarthritis, left shoulder Office Visit 05/21/2015 Orthopedic Lisa M77.12 Lateral 10:40a Services Of DAVID Chase epicondylitis, left C.M.A. elbow S46.212A Strain of musc/fasc/tend prt biceps, left arm, init Office Visit 04/23/2015 Nagi Rebollar M77.12 Lateral 1:00p Services Of Cesia Jewell epicondylitis, left C.M.A. elbow S46.212A Strain of musc/fasc/tend prt biceps, left arm, init Office Visit 10/28/2014 Orthopedic Lisa 726.32 Epicondylitis 9:30a Services Of DAVID Chase Lateral C.M.A. 923.11 Contusion Elbow Office Visit 09/02/2014 Orthopedic Lisa 726.32 Epicondylitis 3:00p Services Of DAVID Chase Lateral C.M.A. 923.11 Contusion Elbow Office Visit 08/05/2014 Orthopedic Smooth 726.32 Epicondylitis 9:00a Services Of Cesia Jewell Lateral C.M.A. 923.11 Contusion Elbow 923.11 Contusion Elbow Plan of Treatment Future Appointment(s):11/15/2018 3:20 pm - Charles Menjivar M.D. at [facility]11/07/2018 3:20 pm - Ned Davenport MD, FAC, [facility] [place] at [facility] AT [facility] [place]03/02/2017 - Smooth Jewell M.D.S46.212S Strain of muscle, fascia and tendon of other parts of biceps, left arm, sequelaFollow up:Call if needed
--- OUTSIDE RECORDS SUMMARY | 2018-12-27 10:03 | XMS REPORT | Continuity of Care Document ---
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 Use Denies alcohol use Tobacco Use [...] 30.2 kg/m2 Procedures Date Code Description Status 06/02/201593731 Inject/Drain Joint/Bursa Major W/O US Completed 06/02/2015 Inject/Drain Joint/Bursa Major W/O US Completed 04/23/2015 Inject Tendon Sheath Or Ligament Aponeurosis Eg Plantar Completed Fascia 12/23/2014 23092 Long Arm Splint Application Completed 12/11/2014 10550 Tenotomy Elbow W/Debridement Soft Tissue And Or Bone Open Completed 12/11/2014 26016 Tenotomy Elbow W/Debridement Soft Tissue And Or Bone Open Completed 09/30/201473516 Injection Single Tendon Origin/Insertion Completed Encounters Type Date Location Provider Dx Diagnosis Office Visit 03/02/2017 Orthopedic Smooth Jewell, S46.212S Strain of 9:00a Services Of Jinrikisha Driver AT .D. musc/fasc/tend [place] prt biceps, left arm, sequela Office Visit 08/02/2016 Nagi Jewell, S46.212S Strain of 2:00p Services Of Jinrikisha Driver AT .D. musc/fasc/tend [place] prt biceps, left arm, sequela R20.8 Other [...] 3:20 pm - Charles Menjivar M.D. at [facility]11/07/2018 3:20 pm - Ned Davenport MD, FAC, [facility] at [facility] AT [facility] [place]/02/2017 - Smooth Jewell M.D.S46.212S Strain of muscle, fascia and tendon of other parts of biceps, left arm, sequelaFollow up:Call if needed
--- OUTSIDE RECORDS SUMMARY | 2018-12-27 10:03 | XMS REPORT | Continuity of Care Document ---
:1965 External Reference #:[id number] Author Name Covert, Ricarda Care Team Providers Name Role Phone Session, ELOY Banuelos Primary Care Physician Unavailable Payers Date Identification Numbers Payment Provider Subscriber Policy Number: [id number] Medicaid Vidal Rudd Group Name: 1 1 [address] PayID: [id number] [place] [address] Onset: 2014 Policy Number: [id number] [facility] Insurance [facility] Vidal Rudd Group Number: [id number] [address] [address] Group Name: [phone] [place] [address] PayID: [id number] PayID: [id number] Controverted Vidal Rudd Problems Active Problems Provider Date Lateral epicondylitis Smooth Jewell M.D. Onset: 12/23/2014 Chronic kidney disease stage 3 Ned Davenport MD, [facility], Onset: 11/07/2018 [facility] Acute subendocardial infarction Ned Davenport MD, [facility], Onset: 11/07/2018 [facility] Late effect of sprain AND/OR strain Smooth Jewell M.D. Onset: 08/02/2016 without tendon injury Encounter for other orthopedic Smooth Jewell M.D. 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 ETOH Use Denies alcohol use Tobacco Use Start: Unknown Patient is a former stopped smoking 1 week End: Unknown smoker ago Smoking Status Reviewed: 11/07/18 Patient is a former stopped smoking 1 week smoker ago Exercise Does not exercise Type/Frequency Exercise Exercises regularly walking at work Type/Frequency continuiously 8 hours Allergies, Adverse Reactions, Alerts Active Allergies Reaction Severity Comments Date Betadine Itching 11/07/2018 Inactive Allergies NKDA 08/05/2014 Medications Active Medications SIG Qnty Indications Ordering Date Provider Losartan Potassium 1 by mouth every 90tabs Marcis T. 11/06/2018 25mg day MD Ethel, Tablets [facility], [facility] Plavix 1 by mouth every 90tabs Marcis T. 11/06/2018 75mg Tablets day MD Ethel, [facility], [facility] Lipitor 1 by mouth every Marcis T. 11/06/2018 80mg Tablets day. Pt takes at MD Ethel, 2100 [facility], [facility] Nitroglycerin 1 sl q5mins x3 as 25tabs Ned T. 11/06/2018 0.4mg needed for chest MD Ethel, Tablets Sub pain [facility], [facility] Ibuprofen take one tab Unknown 800mg Tablets three times a day as needed for pain Tylenol 2 capsules three Unknown 325mg Capsules times a day Nexium 24HR 1 by mouth every Unknown 20mg Capsules day DR History Medications Gabapentin two capsules at 60caps Smooth Jewell, 02/12/2015 - 300mg bedtime for nerve M.D. 08/01/2016 Capsules pain Percocet take 1-2 pills [...] Injection Vital Signs Date Vital Result Comment 11/07/2018 3:19pm Height 64 inches 5'4" Weight 177.38 lb with shoes Heart Rate 68 /min lt radial BP Systolic Sitting 148 mmHg Lue reg cuff BP Diastolic Sitting 90 mmHg Lue reg cuff BP Systolic Standing 142 mmHg Lue reg cuff BP Diastolic Standing 90 mmHg Lue reg cuff BMI (Body Mass Index) 30.4 kg/m2 Ejection Fraction 50-55% ECHO 10/31/2018 03/02/2017 9:08am Height 64 inches 5'4" Weight [...] 30.2 kg/m2 Procedures Date Code Description Status 11/07/2018 06834 EKG Tracing & Interpretation Completed 10/31/2018 73180 ECHO Transthorasic Realtime 2D W Doppler & Color Flow Hosp Completed 06/02/201581257 Inject/Drain Joint/Bursa Major W/O US Completed 06/02/201534118 Inject/Drain Joint/Bursa Major W/O US Completed 04/23/201527755 Inject Tendon Sheath Or Ligament Aponeurosis Eg Plantar Completed Fascia 12/23/2014 11950 Long Arm Splint Application Completed 12/11/2014 64661 Tenotomy Elbow W/Debridement Soft Tissue And Or Bone Open Completed 12/11/2014 96889 Tenotomy Elbow W/Debridement Soft Tissue And Or Bone Open Completed 09/30/2014 83030 Injection Single Tendon Origin/Insertion Completed Encounters Type Date Location Provider Dx Diagnosis Office Visit 03/02/2017 Orthopedic Smooth Jewell, S46.212S Strain of 9:00a Services Of Zoo Caretaker AT M.D. musc/fasc/tend [place] prt biceps, left arm, sequela Office Visit 08/02/2016 Orthopedic Smooth Jewell, S46.212S Strain of 2:00p Services Of Zoo Caretaker AT M.D. musc/fasc/tend [place] prt biceps, left arm, sequela R20.8 Other [...] epicondylitis, left C.M.A. elbow S46.212A Strain of melody/fasc/tend prt biceps, left arm, init Office Visit 10/28/2014 Orthopedic Lisa Gleason6.32 Epicondylitis 9:30a Services Of DAVID Chase Lateral C.M.A. 923.11 Contusion Elbow Office Visit 09/02/2014 Orthopedic Lisa 726.32 Epicondylitis 3:00p Services Of DAVID Chase Lateral C.M.A. 923.11 Contusion Elbow Office Visit 08/05/2014 Nagi Rebollar 726.32 Epicondylitis 9:00a Services Of Cesia Jewell Lateral C.M.A. 923.11 Contusion Elbow 923.11 Contusion Elbow Plan of Treatment Future Appointment(s):11/15/2018 3:20 pm - Charles Menjivar M.D. at [facility]11/07/2018 - Ned Davenport MD, [facility], [id number] Non-St elevation (Nstemi) myocardial elbcopmhmjO25.3 Chronic kidney disease, stage 3 ( moderate)
--- OUTSIDE RECORDS SUMMARY | 2018-12-27 10:03 | XMS REPORT | Continuity of Care Document ---
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 Use Denies alcohol use Tobacco Use [...] 30.2 kg/m2 Procedures Date Code Description Status 06/02/201505863 Inject/Drain Joint/Bursa Major W/O US Completed 06/02/2015 Inject/Drain Joint/Bursa Major W/O US Completed 04/23/2015 Inject Tendon Sheath Or Ligament Aponeurosis Eg Plantar Completed Fascia 12/23/2014 83510 Long Arm Splint Application Completed 12/11/2014 28831 Tenotomy Elbow W/Debridement Soft Tissue And Or Bone Open Completed 12/11/2014 85568 Tenotomy Elbow W/Debridement Soft Tissue And Or Bone Open Completed 09/30/201441937 Injection Single Tendon Origin/Insertion Completed Encounters Type Date Location Provider Dx Diagnosis Office Visit 03/02/2017 Orthopedic Smooth Jewell, S46.212S Strain of 9:00a Services Of Research Technologist AT .D. musc/fasc/tend [place] prt biceps, left arm, sequela Office Visit 08/02/2016 Nagi Jewell, S46.212S Strain of 2:00p Services Of Research Technologist AT .D. musc/fasc/tend [place] prt biceps, left arm, sequela R20.8 Other [...] 3:20 pm - Charles Menjivar M.D. at [facility]11/07/2018 3:20 pm - Ned Davenport MD, FAC, [facility] at [facility] AT [facility]03/02/2017 - Smooth Jewell M.D.S46.212S Strain of muscle, fascia and tendon of other parts of biceps, left arm, sequelaFollow up:Call if needed
--- OUTSIDE RECORDS SUMMARY | 2018-12-27 10:03 | XMS REPORT | Continuity of Care Document ---
:1965 External Reference #:[id number] Author Name Charles Menjivar M.D. 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 Onset: 12/23/2014 Chronic kidney disease stage 3 Ned Davenport MD, [facility], Onset: 11/07/2018 [facility] Acute subendocardial infarction Ned Davenport MD, [facility], Onset: 11/07/2018 [facility] Late effect of sprain AND/OR strain Smooth Jewell M.D. Onset: 08/02/2016 without tendon injury Encounter for other orthopedic Smooth Jewell M.D. Onset: 03/11/2015 aftercare Social History Type Date Description Comments Sex Unknown ETOH Use Denies alcohol use Tobacco Use Start: Unknown End: Patient is a former stopped smoking 1 week Unknown smoker ago Smoking Status Reviewed: 11/15/18 Patient is a former stopped smoking 1 week smoker ago Exercise Does not exercise Type/Frequency Exercise Exercises regularly walking at work Type/Frequency continuiously 8 hours Allergies, Adverse Reactions, Alerts Active Allergies Reaction Severity Comments Date Betadine Itching 11/07/2018 Inactive Allergies NKDA 08/05/2014 Medications Active Medications SIG Qnty Indications Ordering Date Provider Lipitor 1 every at night 30tabs E78.00 Charles Waller 11/15/2018 20mg Tablets Cesia Menjivar Losartan Potassium 1 by mouth every 90tabs Ned Laura 11/06/2018 25mg day MD Ethel, Tablets ABHI ORTIZ Plavix 1 by mouth every 90tabs Ned Laura 11/06/2018 75mg Tablets day MD Davenport FACC, FSCAI Nitroglycerin 1 sl q5mins x3 as 25tabs Ned Laura 11/06/2018 0.4mg needed for chest MD Ethel, Tablets Sub pain ABHI ORTIZ Ibuprofen take one tab Unknown 800mg Tablets three times a day as needed for pain Tylenol 2 capsules three Unknown 325mg Capsules times a day Nexium 24HR 1 by mouth every Unknown 20mg Capsules day Aspirin 81 1 by mouth every Unknown 81mg Tablets day Metoprolol Succinate 1/2 by mouth Unknown ER every day 25mg Tablets ER 24HR History Medications Lipitor 1 by mouth every Marcis T. Ethel, 11/06/2018 - 11/15/2018 80mg Tablets day. Pt takes at [facility] FSCAI 2100 Medications Administered in Office Medication SIG Qnty Indications Ordering Provider Date Depomedrol 40MG DAVID Onofre 06/02/2015 Injection Depomedrol 40MG Smooth Jewell M.D. 04/23/2015 Injection Celestone 3 mg and 3mg DAVID Onofre 09/30/2014 Injection Immunizations Description No Information Available Vital Signs Date Vital Result Comment 11/15/2018 3:16pm Height 64 inches 5'4" Weight 181.00 lb Heart Rate 54 /min BP Systolic Sitting 121 mmHg Rue reg cuff BP Diastolic Sitting 82 mmHg Rue reg cuff BP Systolic Standing 121 mmHg Rue reg cuff BP Diastolic Standing 82 mmHg Rue reg cuff BMI (Body Mass Index) 31.1 kg/m2 Ejection Fraction 50-55% 11/07/2018 3:19pm Height 64 inches 5'4" Weight 177.38 lb with shoes Heart Rate 68 /min lt radial BP Systolic Sitting 148 mmHg Lue reg cuff BP Diastolic Sitting 90 mmHg Lue reg cuff BP Systolic Standing 142 mmHg Lue reg cuff BP Diastolic Standing 90 mmHg Lue reg cuff BMI (Body Mass Index) 30.4 kg/m2 Ejection Fraction 50-55% ECHO 10/31/2018 Results Description No Information Available Procedures Date Code Description Status 11/15/2018 44188 EKG Tracing & Interpretation Completed 11/07/2018 23682 EKG Tracing & Interpretation Completed 10/31/2018 59733 Cath PLMT&NJX L Ventriculog Img S&I Completed 10/31/2018 76243 ECHO Transthorasic Realtime 2D W Doppler & Color Flow Hosp Completed 10/31/2018 85207 Revascularization Acute Total/Subtotal Occlusion Completed Medical Devices Description No Information Available Encounters Type Date Location Provider Dx Diagnosis Office Visit 11/07/2018 [facility] Ned Laura I21.4 Non-St elevation 3: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 MD Ethel, (Nstemi) FAC, FSCAI myocardial infarction N18.3 Chronic kidney disease, stage 3 (moderate) Office Visit 11/01/2018 4:48p [facility] Shahriar Martinez I21.4 Non-St elevation Of Electric Locomotive Firer/Fireman Oakes, DO (Nstemi) FAC myocardial infarction I25.10 Athscl heart disease of [place] coronary artery w/o ang pctrs Z98.61 Coronary angioplasty status Office Visit 11/01/2018 10:54a [facility] I21.4 Non-St elevation Assoc,pc Billie NETWORK OPERATIONS ANALYST (Nstemi) Hospitalists myocardial infarction R07.9 Chest pain, unspecified R79.89 Other specified abnormal findings of blood chemistry I10 Essential (primary) hypertension Z72.0 Tobacco use R55 Syncope and collapse Z86.73 Prsnl hx of TIA (TIA), and cereb infrc w/o resid deficits Office Visit 10/31/2018 11:55a [facility] Keyona Thjatinder, I20.0 Unstable angina NETWORK OPERATIONS ANALYST R79.89 Other specified abnormal findings of blood chemistry Z86.73 Prsnl hx of TIA (TIA), and cereb infrc w/o resid deficits I10 Essential (primary) hypertension I21.4 Non-St elevation (Nstemi) myocardial infarction Office Visit 10/31/2018 10:54a [facility] Marge Michelle, R07.9 Chest pain, Assoc,pc NETWORK OPERATIONS ANALYST unspecified Hospitalists I10 Essential (primary) hypertension Assessments Date Code Description Provider 11/15/2018 I21.4 Non-St elevation (Nstemi) myocardial Charles Menjivar M.D. infarction 11/15/2018 N18.3 Chronic kidney disease, stage 3 Charles Menjivar M.D. (moderate) 11/15/2018 I25.10 Atherosclerotic heart disease of [place] Charles Menjivar M.D. coronary artery without angina pectoris 11/15/2018 E78.00 Hypercholesterolemia Charles Menjivar M.D. 11/07/2018 I21.4 Non-St elevation (Nstemi) myocardial Ned Davenport MD, [facility], infarction [facility] 11/07/2018 N18.3 Chronic kidney disease, stage 3 Ned Davenport MD, [facility], (moderate) FSCAI 11/01/2018 I21.4 Non-St elevation (Nstemi) myocardial Shahriar Oakes, DO FAC infarction 11/01/2018 I25.10 Atherosclerotic heart disease of [place] Shahriar Oakes, DO [facility] coronary artery without angina pectoris 11/01/2018 Z98.61 Coronary angioplasty status Shahriar Oakes, DO FAC 11/01/2018 I21.4 Non-St elevation (Nstemi) myocardial Colette Shortle, NETWORK OPERATIONS ANALYST infarction 11/01/2018 R07.9 Chest pain, unspecified Colette Shortle, NETWORK OPERATIONS ANALYST 11/01/2018 R79.89 Other specified abnormal findings of Colette Short, NETWORK OPERATIONS ANALYST blood chemistry 11/01/2018 I10 Essential (primary) hypertension Colette Shortle, NETWORK OPERATIONS ANALYST 11/01/2018 Z72.0 Tobacco use Colette Shortle, NETWORK OPERATIONS ANALYST 11/01/2018 R55 Syncope and collapse Colette Shortle, NETWORK OPERATIONS ANALYST 11/01/2018 Z86.73 Personal history of transient ischemic Colette Shortle, NETWORK OPERATIONS ANALYST attack (TIA), and cerebral infarction without residual deficits 10/31/2018 R07.9 Chest pain, unspecified Marge Michelle, NETWORK OPERATIONS ANALYST 10/31/2018 I21.4 Non-St elevation (Nstemi) myocardial Dov Nathan M.D., [facility], infarction [facility] 10/31/2018 I10 Essential (primary) hypertension Marge Michelle, NETWORK OPERATIONS ANALYST 10/31/2018 I25.10 Atherosclerotic heart disease of [place] Dov Nathan M.D. , FAC, coronary artery without angina pectoris [facility] 10/31/2018 R94.31 Abnormal electrocardiogram [ECG] [EKG] Charles [...] Parmar NP infarction Plan of Treatment Future Appointment(s):12/17/2018 3:30 pm - Keyona Parmar NP at [facility]11/15/2018 - Charles Menjivar M.D.I21.4 Non-St elevation (Nstemi) myocardial infarctionFollow up:ov NETWORK OPERATIONS ANALYST 1 m ov JFM 6 mN18.3 Chronic kidney disease , stage 3 (moderate)I25.10 Atherosclerotic heart disease of [place] coronary artery without angina vzyirxhuU24.00 HypercholesterolemiaNew Medication:Lipitor 20 mg - 1 every at nightRecommendations:consider using enzyme coq 10 200 mg daily to help reduce the sided effects of statin Functional Status Description No Information Available Mental Status Description No Information Available Referrals Description No Information Available
[2018-12-27] MEDS ORDERED: HYDROcodone/ACETAMIN 5-325 MG* 1 TAB PO ONE (11:41)
[2018-12-27 12:02] VITALS: BP 163/102
--- NOTE | 2018-12-27 12:03 | ED ---
Throat Pain/Nasal Congestion - HPI Summary HPI Summary: This patient is a 53-year-old male with a history of full dental extraction except for lower back molar presenting to the ED with lower back molar pain. He has been complaining of dental pain x several weeks but it has been getting worse. He was able to follow-up with his dentist who referred him to oral surgery in [place]. There soonest appointment was in March. He then went back to his PCP who was able to prescribe him tramadol, however this has not been improving the pain. He states he has not taken anything stronger and believes Tylenol is helping more than the tramadol. He denies any discharge or drainage from the area. Pain radiates to the left upper jaw and ear and causing tension-like headaches. He has been using mouth rinse twice daily. He has not used anything [id number] for relief. He denies any fevers, sweats , chills. - History of Current Complaint Chief Complaint: EDDentalPain Time Seen by Provider: 12/27/18 10:07 Hx Obtained From: Patient Onset/Duration: Gradual Onset, Lasting Weeks Associated Signs And Symptoms: Positive: Negative - Epiglottits Risk Factors Epiglottis Risk Factors: Negative - Allergies/Home Medications Allergies/Adverse Reactions: Allergies Allergy/AdvReac Type Severity Reaction Status Date / Time hydrocodone [From [place]] Allergy Unknown See Comment Verified 10/30/18 23:59 oxycodone Allergy Unknown Palpitation Verified 10/30/18 23:59 s/SOB povidone-iodine Allergy Unknown See Comment Verified 10/30/18 23:59 [From Betadine] soap [From Betadine] Allergy Unknown See Comment Verified 10/30/18 23:59 atorvastatin [From Lipitor] AdvReac Unknown GI Upset Verified 12/25/18 14:34 muscle relaxers Allergy Unknown See Comment Uncoded 10/30/18 23:59 PMH/Surg Hx/FS Hx/Imm Hx Previously Healthy: Yes Endocrine/Hematology History: Denies: Hx Bone Marrow Disease, Hx Diabetes, Hx Thyroid Disease, Hx Anemia Cardiovascular History: Reports: Hx Angina, Hx Coronary Artery Disease - Stent, Hx Hypercholesterolemia, Hx Hypertension, Hx Myocardial Infarction - NSTEMI Denies: Hx Congestive Heart Failure, Hx Pacemaker/ICD, Hx Valvular Heart Disease, Other Cardiovascular Problems/Disorders Respiratory History: Denies: Hx Asthma, Hx Sleep Apnea GI History: Reports: Hx Gastroesophageal Reflux Disease - TAKES TUMS. DEPENDS ON WHAT HE EATS. GETS EVERY FEW DAYS, Other GI Disorders - stomach infecton,ABD burning, COLONOSCOPY EGD.- 7 YEARS AGO-no problems now Denies: Hx Cirrhosis, Hx Crohn's Disease, Hx Irritable Bowel, Hx Jaundice History: Denies: Hx Kidney Infection, Hx Kidney Stones, Hx Renal Disease, Other Problems/Disorders Musculoskeletal History: Reports: Other Musculoskeletal History - SURGERY ON BOTH KNEES- ABOUT 5YEARS Denies: Hx Arthritis, Hx Bursitis, Hx Tendonitis Sensory History: Reports: Hx Contacts or Glasses - glasses Denies: Hx Cataracts, Hx Hearing Aid Opthamlomology History: Reports: Hx Contacts or Glasses - glasses Denies: Hx Cataracts Neurological History: Denies: Hx Headaches, Hx Migraine, Hx Nerve Disease Psychiatric History: Denies: Hx Anxiety, Hx Depression, Hx Panic Disorder - Surgical History Surgery Procedure, Year, and Place: 2005 ABDOM[place]AL [place] REPAIR, [place]. 2013 [place], [place]. 2010 [place]COPIES, [place]. 12/[email or web address] Hx Anesthesia Reactions: Yes - 2014-WAS TOLD HE HAD PALPITATIONS DURING SURGERY , NO FOLLOWUP - Immunization History Date of Influenza Vaccine: N Hx Pertussis Vaccination: No Immunizations Up to Date: Yes Infectious Disease History: No Infectious Disease History: Denies: Hx Hepatitis, Traveled Outside the [place] in Last 30 Days - Family History Known Family History: Positive: Hypertension, Diabetes, Other - FMHx of stroke - Social History Occupation: Employed Full-time Lives: With Family Alcohol Use: None Hx Substance Use: No Substance Use Type: Reports: None Smoking Status (MU): Former Smoker Type: Cigarettes Amount Used/How Often: 1PPD Length of Time of Smoking/Using Tobacco: 5 YEARS Have You Smoked in the Last Year: Yes Review of Systems Negative: Fever, Chills, Fatigue, Skin Diaphoresis Positive: Dental Pain Negative: Palpitations, Chest Pain Negative: Shortness Of Breath, Cough Genitourinary: Negative Positive: no symptoms reported, see HPI Negative: Arthralgia, Myalgia Skin: Negative All Other Systems Reviewed And Are Negative: Yes Physical Exam Triage Information Reviewed: Yes Vital Signs On Initial Exam: Initial Vitals Temp Pulse Resp BP Pulse Ox 97.1 F 50 18 183/104 98 09/26/19 09:57 12/27/18 09:57 12/27/18 09:57 12/27/18 09:57 12/27/18 09:57 Vital Signs Reviewed: Yes Appearance: Positive: Well-Nourished, Pain Distress Skin: Positive: Warm, Skin Color Reflects Adequate Perfusion Head/Face: Positive: Normal Head/Face Inspection Eyes: Positive: EOMI, Conjunctiva Clear Neck: Positive: Supple, No Lymphadenopathy Respiratory/Lung Sounds: Positive: Clear to Auscultation Cardiovascular: Positive: RRR, Pulses are Symmetrical in both Upper and Lower Extremities Neurological: Positive: Speech Normal Psychiatric: Positive: Normal, Affect/Mood Appropriate Diagnostics - Vital Signs Vital Signs Temp Pulse Resp BP Pulse Ox 12/27/18 09:57 97.1 F 50 18 183/104 98 - Laboratory Lab Statement: Any lab studies that have been ordered have been reviewed, and results considered in the medical decision making process. EENT Course/Dx - Course Course Of Treatment: Discuss treatment options with the patient. Patient states he is unable to sleep due to pain. Symptoms are worse with lying flat and better with sitting upright. He denies any neck pain. Pain is strictly over the back molar and radiating up into the ear. He has a follow-up with a dentist for dental extraction in March. He states he is unable to control the pain and unable to sleep at night. Physical examination, there is 1 back molar, tooth #17 left, all others are extracted. No bleeding noted. No drainage noted. No erythema or swelling surrounding the area. No other signs of infection. He remains on amoxicillin 20 days per his dentist. He was also given tramadol but states this has not been improving his symptoms. This patient is otherwise stable, he will be given a stronger pain medication, oxycodone. He states his allergy listed on his medication list to this is nightmares at night. He states this only happened to him once and is willing to take medication again. He will continue to take Tylenol during the day and uses only at bedtime unless he is developing severe pain, then may use it during the day. 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 - Diagnoses Provider Diagnoses: Pain, dental Discharge ED - Sign-Out/Discharge Documenting (check all that apply): Patient Departure Patient Received Moderate/Deep Sedation with Procedure: No - Discharge Plan Condition: Stable Disposition: HOME Prescriptions: oxyCODONE/Acetamin 10/325(NF) [Percocet 10/325 (NF)] 1 tab PO Q6H #20 tab MDD 4 Patient Education Materials: Toothache (ED) Referrals: Vin Rodriguez [Primary Care Provider] - Additional Instructions: Oxycodone up to four times daily for pain Clove or over the counter anbesol for pain control Liquor will help (rum) soaked in a cotton ball - Billing Disposition and Condition Condition: STABLE Disposition: Home
== END 2018-12-27 12:00 | disposition home or self-care (01) ==
LOC: ED 09:53
DX: K08.89 Other specified disorders of teeth and supporting structures (principal); I25.10 Atherosclerotic heart disease of native coronary artery without angina pectoris; E78.00 Pure hypercholesterolemia, unspecified; I10 Essential (primary) hypertension; I25.2 Old myocardial infarction; K21.9 Gastro-esophageal reflux disease without esophagitis; Z95.5 Presence of coronary angioplasty implant and graft; Z87.891 Personal history of nicotine dependence; Z88.5 Allergy status to narcotic agent; Z88.8 Allergy status to other drugs, medicaments and biological substances; Z79.82 Long term (current) use of aspirin; Z79.899 Other long term (current) drug therapy
CPT/HCPCS: 99282

== ENCOUNTER 2019-01-08 11:04 | Emergency (ER) | payer OTHER ==
[2019-01-08] MEDS ORDERED: Amoxicillin PO (*) 250 MG CAP PO ONE (12:17)
[2019-01-08 12:45] VITALS: BP 163/94
--- NOTE | 2019-01-09 06:17 | ED ---
Throat Pain/Nasal Congestion - HPI Summary HPI Summary: Patient is a 53-year-old male who presents emergency department for left-sided facial swelling. Patient states he had a tooth extraction last week and Rohan. Patient states he was prescribed hydrocodone has not been taking it until last night. Patient has numerous drug allergies. Patient is concerned he may be having an allergic reaction to hydrocodone because after he took a dose last night he noticed left-sided facial swelling. He denies fever, chills , chest pain, shortness of breath, difficulty swallowing or breathing, rash or pruritis. Patient notes increased pain at extraction site. Symptoms are mild in severity. Touching area makes symptoms worse. Nothing makes symptoms better. - History of Current Complaint Chief Complaint: EDAllergicReaction Time Seen by Provider: 01/08/19 11:58 Hx Obtained From: Patient - Allergies/Home Medications Allergies/Adverse Reactions: Allergies Allergy/AdvReac Type Severity Reaction Status Date / Time hydrocodone [From [place]] Allergy Unknown See Comment Verified 01/08/19 12:02 oxycodone Allergy Unknown Palpitation Verified 01/08/19 12:02 s/SOB povidone-iodine Allergy Unknown See Comment Verified 01/08/19 12:02 [From Betadine] soap [From Betadine] Allergy Unknown See Comment Verified 01/08/19 12:02 atorvastatin [From Lipitor] AdvReac Unknown GI Upset Verified 01/08/19 12:02 muscle relaxers Allergy Unknown See Comment Uncoded 01/08/19 12:02 Home Medications: Home Medications Hydrocodone/Acetaminophen [Hydrocodone-Acetamin 5-325 mg] 1 tab PO Q6HR [History Confirmed 01/08/19] PMH/Surg Hx/FS Hx/Imm Hx Previously Healthy: Yes Endocrine/Hematology History: Denies: Hx Bone Marrow Disease, Hx Diabetes, Hx Thyroid Disease, Hx Anemia Cardiovascular History: Reports: Hx Angina, Hx Coronary Artery Disease - Stent, Hx Hypercholesterolemia, Hx Hypertension, Hx Myocardial Infarction - NSTEMI Denies: Hx Congestive Heart Failure, Hx Pacemaker/ICD, Hx Valvular Heart Disease, Other Cardiovascular Problems/Disorders Respiratory History: Denies: Hx Asthma, Hx Sleep Apnea GI History: Reports: Hx Gastroesophageal Reflux Disease - TAKES TUMS. DEPENDS ON WHAT HE EATS. GETS EVERY FEW DAYS, Other GI Disorders - stomach infecton,ABD burning, COLONOSCOPY EGD.- 7 YEARS AGO-no problems now Denies: Hx Cirrhosis, Hx Crohn's Disease, Hx Irritable Bowel, Hx Jaundice History: Denies: Hx Kidney Infection, Hx Kidney Stones, Hx Renal Disease, Other Problems/Disorders Musculoskeletal History: Reports: Other Musculoskeletal History - SURGERY ON BOTH KNEES- ABOUT 5YEARS Denies: Hx Arthritis, Hx Bursitis, Hx Tendonitis Sensory History: Reports: Hx Contacts or Glasses - glasses Denies: Hx Cataracts, Hx Hearing Aid Opthamlomology History: Reports: Hx Contacts or Glasses - glasses Denies: Hx Cataracts Neurological History: Denies: Hx Headaches, Hx Migraine, Hx Nerve Disease Psychiatric History: Denies: Hx Anxiety, Hx Depression, Hx Panic Disorder - Surgical History Surgery Procedure, Year, and Place: 2005 ABDOM[place]AL [place] RE[place]IR, [place]. 2013 [place]ICAL [place], [place]. 2010 [place], [place]. [email or web address] Hx Anesthesia Reactions: Yes - 2014-WAS TOLD HE HAD PALPITATIONS DURING SURGERY , NO FOLLOWUP - Immunization History Date of Influenza Vaccine: N Infectious Disease History: No Infectious Disease History: Denies: Hx Hepatitis, Traveled Outside the US in Last 30 Days - Family History Known Family History: Positive: Hypertension, Diabetes, Other - FMHx of stroke - Social History Occupation: Unemployed Lives: With Family Alcohol Use: None Hx Substance Use: No Substance Use Type: Reports: None Smoking Status (MU): Former Smoker Type: Cigarettes Amount Used/How Often: 1PPD Length of Time of Smoking/Using Tobacco: 5 YEARS Have You Smoked in the Last Year: Yes Review of Systems Constitutional: Negative Negative: Fever, Chills Positive: Other - Gum pain and left sided facial swelling Cardiovascular: Negative Respiratory: Negative Gastrointestinal: Negative Negative: Vomiting, Nausea Skin: Negative All Other Systems Reviewed And Are Negative: Yes Physical Exam Triage Information Reviewed: Yes Vital Signs On Initial Exam: Initial Vitals Temp Pulse Resp BP Pulse Ox 97.8 F 48 18 201/119 98 01/08/19 11:09 01/08/19 11:09 01/08/19 11:09 01/08/19 11:09 01/08/19 11:09 Vital Signs Reviewed: Yes Appearance: Positive: Well-Appearing - Pt. sitting on bed in NAD. present. Skin: Positive: Warm, Dry Head/Face: Positive: Normal Head/Face Inspection Eyes: Positive: Normal, EOMI, MEET Dental: Positive: Other - Extraction site to left lower gingiva with mild erythema and edema. No purulent drainage. No swelling under tongue. No trismus. Mild left sided facial edema. Otherwise full dental extraction noted. Neck: Positive: Supple, Enlarged Nodes @ - Slightly enlarged left anterior cervical. Respiratory/Lung Sounds: Positive: Clear to Auscultation, Breath Sounds Present. Negative: Rales, Rhonchi, Wheezes Cardiovascular: Positive: Normal, RRR Neurological: Positive: Normal, CN Intact II-III Psychiatric: Positive: Affect/Mood Appropriate Procedures - Sedation Patient Received Moderate/Deep Sedation with Procedure: No Diagnostics - Vital Signs Vital Signs Temp Pulse Resp BP Pulse Ox 01/08/19 12:44 97.7 F 50 16 163/94 98 01/08/19 12:01 49 19 97 01/08/19 11:59 54 15 165/104 100 01/08/19 11:09 97.8 F 48 18 201/119 98 - Laboratory Lab Statement: Any lab studies that have been ordered have been reviewed, and results considered in the medical decision making process. EENT Course/Dx - Course Course Of Treatment: He should presenting with mild left-sided facial edema increased gingiva pain after dental extraction. He is afebrile and well appearing. No evidence of an allergic reaction. Suspect edema secondary to early infection. Will place patient on amoxicillin. Advised to continue no mouth rinses as directed. To call similar doctor for close follow-up appointment and follow-up with his dentist as soon as possible. Patient return to the ER symptoms change or worsen. Patient understands and agrees plan. - Diagnoses Provider Diagnoses: Status post tooth extraction Discharge ED - Sign-Out/Discharge Documenting (check all that apply): Patient Departure - Discharge Plan Condition: Good Disposition: HOME Prescriptions: Amoxicillin PO (*) [Amoxicillin 500 MG CAP*] 500 mg PO Q12H #20 cap Patient Education Materials: Toothache (ED) Referrals: Vin Rodriguez [Primary Care Provider] - Additional Instructions: Schedule a follow up appointment with your PCP in 2-3 days for recheck Call oral surgeon today for a close follow up appointment Take antibiotic as directed Apply warm compresses to face Return to ER for fever, increased pain, swelling, or if concerned - Billing Disposition and Condition Condition: GOOD Disposition: Home
== END 2019-01-08 12:34 | disposition home or self-care (01) ==
LOC: ED 11:04
DX: K08.409 Partial loss of teeth, unspecified cause, unspecified class (principal); I25.10 Atherosclerotic heart disease of native coronary artery without angina pectoris; E78.00 Pure hypercholesterolemia, unspecified; I10 Essential (primary) hypertension; I25.2 Old myocardial infarction; K21.9 Gastro-esophageal reflux disease without esophagitis; Z95.5 Presence of coronary angioplasty implant and graft; Z87.891 Personal history of nicotine dependence; Z79.82 Long term (current) use of aspirin; Z79.899 Other long term (current) drug therapy; Z88.5 Allergy status to narcotic agent; Z88.8 Allergy status to other drugs, medicaments and biological substances
CPT/HCPCS: 99282; A9270-GY

== ENCOUNTER 2019-06-29 12:57 | Observation (INO) | payer OTHER ==
[2019-06-29] MEDS ORDERED: NS 0.9% 1000 ML** 1,000 ML IV ONE (13:00)
--- NOTE | 2019-06-29 13:05 | ED ---
Neurological HPI - HPI Summary HPI Summary: 54 year old M presenting to [facility] with a chief complaint of aphasia and forgetfulness since 12:00/12:15. Patient reports that some of his fingers are cold. Symptoms aggravated by nothing. Symptoms alleviated by nothing. The patient was reportedly unable to remember his family member's names. He is now improving. The patient states that he has had similar symptoms previously and was diagnosed with a TIA. Medication list reviewed. Allergy list reviewed. - History of Current Complaint Stated Complaint: STROKE SYMPTOMS Hx Obtained From: Patient Onset/Duration: Sudden Onset Timing: Constant Aggravating: Nothing Alleviating: Nothing Associated Signs and Symptoms: Positive: Memory Loss - Additional Pertinent History Primary Care Physician: [id number] - Allergy/Home Medications Allergies/Adverse Reactions: Allergies Allergy/AdvReac Type Severity Reaction Status Date / Time hydrocodone [From [place]] Allergy Unknown See Comment Verified 01/08/19 12:02 oxycodone Allergy Unknown Palpitation Verified 01/08/19 12:02 s/SOB povidone-iodine Allergy Unknown See Comment Verified 01/08/19 12:02 [From Betadine] soap [From Betadine] Allergy Unknown See Comment Verified 01/08/19 12:02 atorvastatin [From Lipitor] AdvReac Unknown GI Upset Verified 01/08/19 12:02 muscle relaxers Allergy Unknown See Comment Uncoded 01/08/19 12:02 Home Medications: Home Medications Aspirin [Aspir-Low] 81 mg PO DAILY 10/30/18 [History Confirmed 06/29/19] Metoprolol Tartrate TAB* [Lopressor TAB*] 25 mg PO DAILY 10/30/18 [History Confirmed 06/29/19] Clopidogrel TAB* [Plavix TAB*] 75 mg PO DAILY #60 tab 11/02/18 [Rx Confirmed ] Nitroglycerin TAB 0.4 MG* 0.4 mg SL Q5M PRN #1 bottle 11/02/18 [Rx Confirmed ] Acetaminophen TAB* [Tylenol TAB*] 650 mg PO Q8HR PRN 12/25/18 [History Confirmed 06/29/19] Rosuvastatin Calcium [Crestor] 20 mg PO QPM 12/25/18 [History Confirmed 06/29/19 ] Isosorbide Dinitrate TAB* [Isordil TAB*] 20 mg PO DAILY 04/16/19 [History Confirmed 06/29/19] Lansoprazole CAP (NF) [Prevacid CAP (NF)] 1 tab PO DAILY 06/29/19 [History Confirmed 06/29/19] Losartan TAB* [Cozaar TAB*] 5 mg PO DAILY 06/29/19 [History Confirmed 06/29/19] metFORMIN* [Glucophage 500 MG TAB *] 500 mg PO BID 06/29/19 [History Confirmed 06/29/19] PMH/Surg Hx/FS Hx/Imm Hx Endocrine/Hematology History: Denies: Hx Bone Marrow Disease, Hx Diabetes, Hx Thyroid Disease, Hx Anemia Cardiovascular History: Reports: Hx Angina, Hx Coronary Artery Disease - Stent, Hx Hypercholesterolemia, Hx Hypertension, Hx Myocardial Infarction - NSTEMI Denies: Hx Congestive Heart Failure, Hx Pacemaker/ICD, Hx Valvular Heart Disease, Other Cardiovascular Problems/Disorders Respiratory History: Denies: Hx Asthma, Hx Sleep Apnea GI History: Reports: Hx Gastroesophageal Reflux Disease - TAKES TUMS. DEPENDS ON WHAT HE EATS. GETS EVERY FEW DAYS, Other GI Disorders - stomach infecton,ABD burning, COLONOSCOPY EGD.- 7 YEARS AGO-no problems now Denies: Hx Cirrhosis, Hx Crohn's Disease, Hx Irritable Bowel, Hx Jaundice History: Denies: Hx Kidney Infection, Hx Kidney Stones, Hx Renal Disease, Other Problems/Disorders Musculoskeletal History: Reports: Other Musculoskeletal History - SURGERY ON BOTH KNEES- ABOUT 4YEARS Denies: Hx Arthritis, Hx Bursitis, Hx Tendonitis Sensory History: Reports: Hx Contacts or Glasses - glasses Denies: Hx Cataracts, Hx Hearing Aid Opthamlomology History: Reports: Hx Contacts or Glasses - glasses Denies: Hx Cataracts Neurological History: Denies: Hx Headaches, Hx Migraine, Hx Nerve Disease Psychiatric History: Denies: Hx Anxiety, Hx Depression, Hx Panic Disorder - Surgical History Surgery Procedure, Year, and Place: 2006 ABDOMINAL H[place]IA REPAIR, [place]. 2014 UMB[place]ICAL [place] REPAIR, [place]. 2011 BILATERAL [place]EE ARTHROSCOPIES, [place]. 12/2014 [email or web address] [place]. CARDIAC STENT Hx Anesthesia Reactions: Yes - 2014-WAS TOLD HE HAD PALPITATIONS DURING SURGERY , NO FOLLOWUP - Immunization History Date of Influenza Vaccine: N Infectious Disease History: Denies: Hx Hepatitis - Family History Known Family History: Positive: Hypertension, Diabetes, Other - FMHx of stroke - Social History Alcohol Use: None Hx Substance Use: No Substance Use Type: Reports: None Hx Tobacco Use: Yes Smoking Status (MU): Former Smoker Type: Cigarettes Amount Used/How Often: 1PPD Length of Time of Smoking/Using Tobacco: 5 YEARS Have You Smoked in the Last Year: Yes Review of Systems Positive: Other - Cold fingers Neurological/Mental Status: Other - Aphasia, memory deficit All Other Systems Reviewed And Are Negative: Yes Physical Exam - Summary Physical Exam Summary: Constitutional: Well-developed, Well-nourished, Alert. (-) Distressed Skin: Warm, Dry HENT: Normocephalic; Atraumatic Eyes: Conjunctiva normal Neck: Musculoskeletal ROM normal neck. (-) JVD, (-) Nuchal rigidity Cardio: Rhythm regular, rate normal, Heart sounds normal; Intact distal pulses; Radial pulses are 2+ and symmetric. (-) Murmur Pulmonary/Chest wall: Effort normal. (-) Respiratory distress, (-) Wheezes, (-) Rales Abd: Soft. (-) Tenderness, (-) Distension, (-) Guarding, (-) Rebound Musculoskeletal: (-) Edema Neuro: Alert, PERRL, Oriented x3, Strength normal, Cranial nerves II-XII are grossly intact. SILT, Strength 5/5 BUE and BLE, (-) Dysmetria, (-) Nystagmus , mild expressive aphasia, GCS 15. Psych: Mood and affect Normal Triage Information Reviewed: Yes Vital Signs Reviewed: Yes - [place] Coma Scale Best Eye Response: 4 - Spontaneous Best Motor Response: 6 - Obeys Commands Best Verbal Response: 5 - Oriented Coma Scale Total: 15 Procedures - Sedation Patient Received Moderate/Deep Sedation with Procedure: No Diagnostics - Laboratory Result Diagrams: 06/29/19 12:59 06/29/19 12:59 Lab Statement: Any lab studies that have been ordered have been reviewed, and results considered in the medical decision making process. - Radiology Chest x-ray Radiology Interpretation Completed By: Radiologist Summary of Radiographic Findings: NO ACTIVE CARDIOPULMONARY DISEASE IS NOTED. ED physician has reviewed this report. - CT Brain CT CT Interpretation Completed By: Radiologist Summary of CT Findings: There is no evidence of intracranial mass or hemorrhage. ED physician has reviewed this report. Head CTA CT Interpretation Completed By: Radiologist Summary of CT Findings: No branch occlusion. No aneurysmal dilatation of the intracranial circulation. is noted. The carotid arteries and vertebral arteries demonstrate no significant stenosis or carotid. or vertebral artery dissection. ED physician has reviewed this report. - EKG 13:22 Cardiac Rate: NL - 65 BPM EKG Rhythm: Sinus Rhythm Summary of EKG Findings: An EKG at 13:22 reveals normal sinus rhythm rate 65 BPM , T-Wave inversions in leads 3, V1-V6. ED physician has reviewed and interpreted this EKG. NIH Scale - NIH Scale Level of Consciousness: Alert/Keenly Responsive Ask Patient the Month and His/Her Age: Both Correct Ask Pt to Open/Close Eyes and Financial Services Intern/Release Non-Paretic Hand: Both Correctly Best Gaze (Only Horizontal Eye Movement): Normal Visual Field Testing: No Visual Loss Facial Paresis-Pt to Smile & Close Eyes or Grimace Symmetry: Normal/Symmetrical Motor Function - Right Arm: No Drift-Holds 10 Seconds Motor Function - Left Arm: No Drift-Holds 10 Seconds Motor Function - Right Leg: No Drift-Holds 10 Seconds Motor Function - Left Leg: No Drift-Holds 10 Seconds Limb Ataxia-Must be out of Proportion to Weakness Present: Absent Sensory (Use Pinprick to Test Arms/Legs/Trunk/Face): Normal Best Language (Describe Picture, Name Items): Some Loss Dysarthria (Read Several Words): Normal Extinction and Inattention: No Abnormality Total Score: 1 NIH Stroke Scale Comment: 12:55 Re-Evaluation - Re-Evaluation First Eval Re-Evaluation Time: 13:00 Comment: Discussed with the transfer center. Second Eval Re-Evaluation Time: 13:17 Comment: Discussed with Dr. Alvarado who recommends discussing with the patient about TPA and re-evaluation of symptoms. Course/Dx - Course Course Of Treatment: 54 y/o male w hx CAD (recent [place]), possible TIA in past p/w episode of aphasia, resolving. - PE well appearing. Neuro w mild expressive aphasia. Had reported some L sided paresthesias now resolved. - NIHSS 1, d/w Neurology at [place] who recommended d/w patient about TPA. On re evaluation patient asymptomatic so TPA deferred. - CTA obtained, admit to medicine for TIA workup - Diagnoses Provider Diagnoses: Expressive aphasia During the Visit The Following Alert/Code Occurred: Code Bishop - Called at 12:55 - Physician Notifications Discussed Care Of Patient With: Tam Jewell Time Discussed With Above Provider: 12:18 Instructed by Provider To: Other - Discussed with Dr. Jewell who will consult with the patient on the floor. [13:41] Dr. George accepts the patient for admission pending CTA. - Critical Care Time Critical Care Time: 30-74 min - Upon my evaluation, this patient had a high probability of imminent or life-threatening deterioration due to stroke, which required my direct attention, intervention, and personal management. I have personally provided 35 minutes of critical care time exclusive of time spent on separately billable procedures. Time includes review of laboratory data, radiology results, discussion with consultants, and monitoring for potential decompensation. Interventions were performed as documented above. Discharge ED - Sign-Out/Discharge Documenting (check all that apply): Patient Departure - Discharge Plan Condition: Stable Disposition: ADMITTED TO [facility] - Billing Disposition and Condition Condition: STABLE Disposition: Admitted to [facility] - Attestation Statements Document Initiated by Lisae: Yes Documenting Scribe: Shereen Donaldson Provider For Whom Brennenibe is Documenting (Include Credential): Benjamin Mcclendon MD Scribe Attestation: I, Shereen Donaldson, scribed for Benjamin Mcclendon MD on 06/29/19 at 1539. Scribe Documentation Reviewed: Yes Provider Attestation: The documentation as recorded by the Shereen orellana accurately reflects the service I personally performed and the decisions made by me, Benjamin Mcclendon MD Status of Scribe Document: Viewed
[2019-06-29 13:10] LABS: ABS Basophils 0.1 10^3/ul (0-0.2); ABS Eosinophils 0.2 10^3/ul (0-0.6); ABS Lymphocytes 2.1 10^3/ul (1.0-4.8); ABS Monocytes 0.7 10^3/ul (0-0.8); ABS Neutrophils 4.6 10^3/ul (1.5-7.7); Eosinophil % 2.1 %; Hematocrit 44 % (42-52); Hemoglobin 15.4 g/dL (14.0-18.0); Lymphocyte % 27.9 %; Mean Corpuscular HGB Conc 35 g/dL (31-36); Mean Corpuscular Hemoglobin 31 pg (27-31); Mean Corpuscular Volume 89 fL (80-94); Mean Platelet Volume 8.9 fL (7.4-10.4); Nucleated Red Blood Cells % 0.1; Platelet Count 213 10^3/uL (150-450); Red Blood Count 5.01 10^6 /uL (4.18-5.48); Red Cell Distribution Width 14 % (10-15); White Blood Count 7.6 10^3/uL (3.5-10.8)
[2019-06-29 13:25] LABS: Activated Partial Thrombo Time 34.1 seconds (26.0-38.0); INR 0.97 (0.82-1.09)
[2019-06-29 13:27] LABS: Calcium 9.7 mg/dL (8.6-10.3); EGFR African American 73.9 (>60); EGFR Non-African American 61.1 (>60); HDL Cholesterol 33.2 mg/dL; Potassium 3.9 mmol/L (3.5-5.0); Total Bilirubin 0.5 mg/dL (0.2-1.0); Total Protein 7.5 g/dL (6.4-8.9)
[2019-06-29 13:29] LABS: Troponin I 0.01 ng/mL (<0.03)
[2019-06-29] MEDS ORDERED: Iohexol 350* (CONTRAST) 500 ML MDV IV ONE (13:30)
[2019-06-29 13:43] LABS: Albumin 4.4 g/dL (3.2-5.2); Albumin/Globulin Ratio 1.4 (1-3); Globulin 3.1 g/dL (2-4)
--- OUTSIDE RECORDS SUMMARY | 2019-06-29 14:16 | XMS REPORT | Continuity of Care Document ---
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 Onset: 12/23/2014 Encounter for other orthopedic Smooth Jewell M.D. Onset: 03/11/2015 aftercare Late effect of sprain AND/OR strain Smooth Jewell M.D. Onset: 08/02/2016 without tendon injury Acute subendocardial infarction Ned Davenport MD, [facility], Onset: 11/07/2018 [facility] Chronic kidney disease stage 3 Ned Davenport MD, [facility], Onset: 11/07/2018 [facility] Social History Type Date Description Comments Sex Unknown Tobacco Use Start: Unknown End: Former Cigarette Smoker 30 years 2 Packs Daily Smoking Status Reviewed: 05/31/19 Former Cigarette Smoker 30 years 2 Packs Daily ETOH Use Denies alcohol use Tobacco Use Start: Unknown End: Patient is a former smoker Recreational Drug Use Denies Drug Use Exercise Type/Frequency Exercises sporadically Chasing granddaughter. 5 years old 04/08/19 Allergies, Adverse Reactions, Alerts Active Allergies Reaction Severity Comments Date Betadine Itching 11/07/2018 Lipitor GI upset Mild 12/17/2018 Vicodin Racing heart 04/08/2019 Hydrocodone Racing heart 04/08/2019 Inactive Allergies NKDA 08/05/2014 Medications Active Medications SIG Qnty Indications Ordering Date Provider Losartan Potassium 1 by mouth every 90tabs Keyona Parmar, 05/17/2019 25mg day CRAFT MANAGER Tablets Rosuvastatin Calcium 1 by mouth every 90tabs Charles Waller 05/07/2019 5mg day Cesia Menjivar Tablets Blood Pressure Monitor 1 machine with 1 1units I10 Keyona jatinder, 2018 Deluxe/Automatic blood pressure CRAFT MANAGER cuff adult Device regular size Plavix 1 by mouth every 90tabs Keyona Parmar, 11/06/2018 75mg Tablets day CRAFT MANAGER Nitroglycerin 1 sl q5mins x3 as 25tabs Marcis TMoi 11/06/2018 0.4mg needed for chest MD Ethel, Tablets Sub pain FACC, FSCAI Aspirin 81 1 by mouth every Unknown 81mg Tablets day DR Metformin HCL 1 by mouth twice Unknown 500mg a day Tablets Omeprazole 1 by mouth twice Unknown 20mg Capsules daily DR History Medications Atorvastatin Calcium 1 by mouth 90tabs Charles Waller 04/22/2019 - every day Cesia Menjivar 04/22/2019 40mg Tablets [facility]2019 - Mononitrate every day 04/22/2019 20mg Tablets Rosuvastatin Calcium 1/2 by mouth 90tabs Keyonagil Parmar NP 12/18/2018 - every day 05/07/2019 20mg Tablets Rosuvastatin Calcium 1 by mouth 90tabs E78.00 Keyona NICOLÁS tobias 2018 - every day 12/17/2018 20mg Tablets before bedtime. Medications Administered in Office Medication SIG Qnty Indications Ordering Provider Date Records Fee Monique Ellis, 03/11/2019 Injection Cesia Depomedrol 40MG DAVID Onofre 06/02/2015 Injection Depomedrol 40MG Smooth Jewell M.D. 04/23/2015 Injection Celestone 3 mg and 3mg DAVID Onofre 09/30/2014 Injection Immunizations Description No Information Available Vital Signs Date Vital Result Comment 05/31/2019 10:45am Height 64 inches 5'4" Weight 197.00 lb Heart Rate 66 /min BP Systolic 120 mmHg BP Diastolic 78 mmHg O2 % BldC Oximetry 97 % BMI (Body Mass Index) 33.8 kg/m2 05/16/2019 12:53pm Height 64 inches 5'4" Weight 196.50 lb with shoes Heart Rate 56 /min ure reg cuff BP Systolic Sitting 150 mmHg BP Diastolic Sitting 100 mmHg Respiratory Rate 18 /min BMI (Body Mass Index) 33.7 kg/m2 Results Test Acquired Date Facility Test Result H/L Range Note Lipid Panel - 01/31/2019 [facility] Creatine 42 U/L Normal 10- 223 1, [address] Kinase(CK) [place] [address] [phone] Comp Metabolic 01/31/2019 [facility] Sodium 141 mmol/L Normal 135-[address] [place] [address] [phone] Potassium 4.1 mmol/L Normal 3.5-5.0 Chloride 108 mmol/L Normal 101-111 Co2 Carbon Dioxide 28 mmol/L Normal 22-32 Anion Gap 5 mmol/L Normal 2-11 Glucose 102 mg/dL High 70-100 Blood Urea Nitrogen 15 mg/dL Normal 6-24 Creatinine 1.22 mg/dL High 0.67-1.17 BUN/Creatinine Ratio 12.3 Normal 8-20 Calcium 9.5 mg/dL Normal 8.6-10.3 Total Protein 6.5 g/dL Normal 6.4-8.9 Albumin 4.4 g/dL Normal 3.2-5.2 Globulin 2.1 g/dL Normal 2-4 Albumin/Globulin Ratio 2.1 Normal 1-3 Total Bilirubin 0.40 mg/dL Normal 0.2-1.0 Alkaline Phosphatase 91 U/L Normal 34-104 Alt 34 U/L Normal 7-52 Ast 19 U/L Normal 13-39 Egfr Non- 61.9 >60 Egfr 74.9 >60 3 Lipid Profile 01/31/2019 [facility] Triglycerides 184 mg/dL 4 (Trig/Chol/HDL) [address] [place] [address] [phone] Cholesterol 142 mg/dL 5 HDL Cholesterol 39.3 mg/dL 6 LDL Cholesterol 66 mg/dL 7 CBC Auto 12/17/2018 [facility] White Blood 8.9 10^3/uL Normal 3.5-10.[address] [place] [address] [phone] Red Blood Count 4.70 10^6/uL Normal 4.18-5.48 Hemoglobin 15.0 g/dL Normal 14.0-18.0 Hematocrit 43 % Normal 42-52 Mean Corpuscular Volume 90 fL Normal 80-94 Mean Corpuscular Hemoglobin 32 pg High 27-31 Mean Corpuscular HGB Conc 35 g/dL Normal 31-36 Red Cell Distribution Width 15 % Normal 10-15 Platelet Count 263 10^3/uL Normal 150-450 Mean Platelet Volume 8.1 fL Normal 7.4-10.4 Abs Neutrophils 6.1 10^3/uL Normal 1.5-7.7 Abs Lymphocytes 1.9 10^3/uL Normal 1.0-4.8 Abs Monocytes 0.6 10^3/uL Normal 0-0.8 Abs Eosinophils 0.2 10^3/uL Normal 0-0.6 Abs Basophils 0.1 10^3/uL Normal 0-0.2 Abs Nucleated RBC 0.0 10^3/uL Granulocyte % 68.6 % Lymphocyte % 21.7 % Monocyte % 6.8 % Eosinophil % 2.2 % Basophil % 0.7 % Nucleated Red Blood Cells % 0.0 1 FASTING 2 FASTING 3 Because ethnic data is not always readily available, this report includes an eGFR for both -Americans and non- Americans. The National Kidney Disease Education Program (NKDEP) does not endorse the use of the MDRD equation for patients that are not between the ages of 18 and 70, are , have extremes of body size, muscle mass, or nutritional status, or are non- or non-. According to the National Kidney Foundation, irrespective of diagnosis, the stage of the disease is based on the level of kidney function: Stage Description GFR(mL/min/1.73 m(2)) 1 Kidney damage with normal or decreased GFR 90 2 Kidney damage with mild decrease in GFR 60-89 3 Moderate decrease in GFR 30-59 4 Severe decrease in GFR 15-29 5 Kidney failure <15 (or dialysis) 4 Desirable: <150 Borderline High: 150-199 High: 200-499 Very High: >500 5 Desirable: <200 Borderline High: 200-239 High: >239 6 Low: <40 Desirable: 40-60 High: >60 7 Desirable: <100 Near Optimal: 100-129 Borderline High: 130-159 High: 160-189 Very High: >189 Procedures Date Code Description Status 05/30/2019 10601 ECHO Transthoracic, Real-Time 2D With Doppler And Color Completed Flow 05/07/2019 73039 EKG Tracing & Interpretation Completed 04/22/2019 46927 ECHO Stress Test Incl Perf Contiuous ekg Monitoring W/Phys Completed Superv 04/22/2019 52948 ECHO Stress Test Incl Perf Contiuous ekg Monitoring W/Phys Completed Superv 04/05/2019 42074 Diffusing Capacity Completed 04/05/2019 92055 Plethysmography Determination Lung Volumes & Per Airway Completed Resist 04/05/2019 08402 Pulmonary Function><Bronchodil Completed 02/22/2019 00652 EKG Tracing & Interpretation Completed 12/26/2018 13549 Treadmill Interp/Report Only Completed 12/26/2018 75447 Stress Test Supervsn W/Out I/R Completed 12/17/2018 74388 EKG Tracing & Interpretation Completed Medical Devices Description No Information Available Encounters Type Date Location Provider Dx Diagnosis Office Visit 05/16/2019 [facility] Keyona Parmar, E78.5 Hyperlipidemia, 2:00p CRAFT MANAGER unspecified I10 Essential (primary) hypertension R06.02 Shortness of breath I25.10 Athscl heart disease of [place] coronary artery w/o ang pctrs Office Visit 05/07/2019 [facility] Charles Waller E78.5 Hyperlipidemia, 8:40a Cardiology Cesia Menjivar unspecified R06.02 Shortness of breath M79.10 Myalgia, unspecified site R01.1 Cardiac murmur, unspecified I10 Essential (primary) hypertension Office Visit 05/03/2019 9:15a [facility] And Elyse R06.02 Shortness of [facility] breath 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 R06.83 Snoring Office Visit 04/30/2019 [facility] M54.12 Radiculopathy, 3:00p Orthopedics at Cesia Jewell cervical region [place] G54.0 Brachial plexus disorders Office Visit 04/08/2019 10:00a [facility] R06.02 Shortness of [facility] breath 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 R91.8 Other nonspecific abnormal finding of lung field Z87.891 Personal history of nicotine dependence [facility], 11:00a [facility] Of [place], CRAFT MANAGER unspecified 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, I25.10 Athscl heart CRAFT MANAGER disease of [place] coronary artery w/o ang pctrs I10 Essential (primary) hypertension E78.5 Hyperlipidemia, unspecified Z72.0 Tobacco use Office Visit 12/17/2018 3:30p 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 05/07/2019 R06.02 Shortness of breath Charles Menjivar M.D. 05/07/2019 M79.10 Myalgia, unspecified site Charles Menjivar M.D. 05/07/2019 R01.1 Cardiac murmur, unspecified Charles Menjivar M.D. 05/07/2019 I10 Essential (primary) hypertension Charles Menjivar M.D. 05/03/2019 R06.02 Shortness of breath Elyse Mota MD 05/03/2019 R06.83 Snoring Elyse Mota MD 04/30/2019 M54.12 Radiculopathy, cervical region Smooth Jewell M.D. 04/30/2019 G54.0 Brachial plexus disorders Smooth Jewell M.D. 04/22/2019 R07.9 Chest pain, unspecified Charles Menjivar M.D. 04/22/2019 R06.02 Shortness of breath [facility] 04/22/2019 R07.9 Chest pain, unspecified [facility] Schedule 04/22/2019 E78.5 Hyperlipidemia, unspecified [facility] Schedule 04/22/2019 I25.10 Atherosclerotic heart disease of [place] [facility] Schedule coronary artery without angina pectoris 04/08/2019 R06.02 Shortness of breath Elyse Mota MD 04/08/2019 R91.8 Other nonspecific abnormal finding of Elyse Mota MD lung field 04/08/2019 Z87.891 Personal history of nicotine dependence Elyse Mota MD 04/05/2019 R07.9 Chest pain, unspecified Elyse Mota MD 02/22/2019 R07.9 Chest pain, unspecified Charles Menjivar M.D. 02/22/2019 E78.5 Hyperlipidemia, unspecified Keyona Thjatinder, CRAFT MANAGER 02/22/2019 R06.02 Shortness of breath Charles Menjivar M.D. 02/22/2019 I10 Essential (primary) hypertension Keyona Thuman, CRAFT MANAGER 02/22/2019 I25.10 Atherosclerotic heart disease of [place] Keyona Thuman, CRAFT MANAGER coronary artery without angina pectoris 02/22/2019 R07.9 Chest pain, unspecified Keyona Thuman, CRAFT MANAGER 01/17/2019 I25.10 Atherosclerotic heart disease of [place] Keyona Thuman, CRAFT MANAGER coronary artery without angina pectoris 01/17/2019 I10 Essential (primary) hypertension Keyona Thuman, CRAFT MANAGER 01/17/2019 E78.5 Hyperlipidemia, unspecified Keyona Thuman, CRAFT MANAGER 01/17/2019 Z72.0 Tobacco use Keyona Parmar NP 12/26/2018 I25.10 Atherosclerotic heart disease of [place] Monique Ellis M.D. coronary artery without angina pectoris 12/17/2018 R94.31 Abnormal electrocardiogram [ECG] [EKG] Charles Menjivar M.D. 12/17/2018 N18.3 Chronic kidney disease, stage 3 Keyona Parmar NP (moderate) 12/17/2018 I25.10 Atherosclerotic heart disease of [place] Keyona MartinezNICOLÁS tobias coronary artery without angina pectoris 12/17/2018 E78.00 Hypercholesterolemia Keyona Parmar NP 12/17/2018 I10 Essential (primary) hypertension Keyona Parmar NP 12/17/2018 R53.83 Other fatigue Keyona Parmar NP Plan of Treatment Future Appointment(s):07/26/2019 11:00 am - Khalida Stanley NP at [facility]09/04/2019 11:20 am - Charles Menjivar M.D. at [facility]06/11/2019 1:00 pm - Smooth Jewell M.D. at [facility] at [facility]49/28/2020 - Khalida Stanley, NPR06.02 Shortness of kzayhfA04.33 Obstructive sleep apnea (adult) (pediatric)Follow up:6-8 weeks (MSD )Recommendations:You are being set up with CPAP for your sleep apnea through [facility] . They will call you to set up an appointment to get fit for a mask and pick and shovel man your machine. If you have difficulty with your equipment, or need to replace your mask or hoses, please contact your homecare agency. If you have any further questions, please call the [facility] at [phone] Ifyou have any sleepiness while driving you MUST avoid operating a vehicle or machinery. If you feel tired while driving thread puller and take a nap or switch drivers. If you know you are sleepy and need togo somewhere, arrange for a ride or use public transportation. It is very important to not risk yoursafety or the safety of others. Functional Status Description No Information Available Mental Status Description No Information Available Referrals Refer to Reason for Referral Status Appt Date Elyse Mota MD Sent [address] [place] [address] [phone] Closed [facility] [address] [place] [address] [phone]
--- OUTSIDE RECORDS SUMMARY | 2019-06-29 14:16 | XMS REPORT | Continuity of Care Document ---
:1965 External Reference #:[id number] Author Name Smooth Jewell M.D. 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 Onset: 12/23/2014 Encounter for other orthopedic Smooth Jewell M.D. Onset: 03/11/2015 aftercare Late effect of sprain AND/OR strain Smooth Jewell M.D. Onset: 08/02/2016 without tendon injury Acute subendocardial infarction Ned Davenport MD, [facility], Onset: 11/07/2018 [facility] Chronic kidney disease stage 3 Ned Davenport MD, [facility], Onset: 11/07/2018 [facility] Social History Type Date Description Comments Sex Unknown Tobacco Use Start: Unknown End: Former Cigarette Smoker 30 years 2 Packs Daily Smoking Status Reviewed: 06/11/19 Former Cigarette Smoker 30 years 2 Packs [...] Medications SIG Qnty Indications Ordering Date Provider Gabapentin 1 by mouth every 30caps M54.12 Smooth Jewell, 06/11/2019 300mg Capsules night at bedtime Cesia Losartan Potassium 1 by mouth every 90tabs Keyona Parmar, 05/17/2019 25mg day PHYSICIAN VICE PRESIDENT Tablets Rosuvastatin Calcium 1 by mouth every 90tabs Charles Waller 05/07/2019 5mg day Cesia Menjivar Tablets Blood Pressure Monitor 1 machine with 1 1units I10 Keyona Parmar, 2018 Deluxe/Automatic blood pressure PHYSICIAN VICE PRESIDENT cuff adult Device regular size Plavix 1 by mouth every 90tabs Keyona Parmar, 11/06/2018 75mg Tablets day PHYSICIAN VICE PRESIDENT Nitroglycerin 1 sl q5mins x3 as 25tabs Ned Laura 11/06/2018 0.4mg needed for chest MD Ethel, Tablets Sub pain FAC, [facility] Aspirin 81 1 by mouth every Unknown 81mg Tablets day DR Metformin HCL 1 by mouth twice Unknown 500mg a day Tablets Omeprazole 1 by mouth twice Unknown 20mg Capsules daily DR History Medications Atorvastatin Calcium 1 by mouth 90tabs Charles Waller 04/22/2019 - 40mg every day Cesia Menjivar 04/22/2019 Tablets Isosorbide Mononitrate 1 by mouth 30tabs Keyona Parmar NP 03/21/2019 - 20mg every day 04/22/2019 Tablets Medications Administered in Office Medication SIG Qnty Indications Ordering Provider Date Records Fee Monique Ellis, 03/11/2019 Injection Cesia Depomedrol 40MG DAVID Onofre 06/02/2015 Injection Depomedrol 40MG Smooth Jewell M.D. 04/23/2015 Injection Celestone 3 mg and 3mg DAVID Onofre 09/30/2014 Injection Immunizations Description No Information Available Vital Signs Date Vital Result Comment 06/13/2019 1:42pm Height 64 inches 5'4" Weight 198.12 lb with shoes Heart Rate 58 /min R radial BP Systolic Sitting 136 mmHg Ule regular cuff BP Diastolic Sitting 94 mmHg Ule regular cuff BP Systolic Standing 136 mmHg Ule regular cuff BP Diastolic Standing 92 mmHg Ule regular cuff BMI (Body Mass Index) 34.0 kg/m2 Ejection Fraction EF 55-60% Echo 05/30/19 06/11/2019 12:45pm Height 64 inches 5'4" Weight 196.00 lb Heart Rate 61 /min BP Systolic Sitting 124 mmHg BP Diastolic Sitting 88 mmHg Body Temperature 97.9 F BMI (Body Mass Index) 33.6 kg/m2 Results Test Acquired Date Facility Test Result H/L Range Note Lipid Panel - 01/31/2019 [facility] Creatine 42 U/L Normal 10- 223 1, [address] Kinase(CK) [place] [address] [phone] Comp Metabolic 01/31/2019 [facility] Sodium 141 mmol/L Normal 135-[address] [place] [address] [phone] Potassium 4.1 mmol/L Normal 3.5-5.0 Chloride 108 [...] Egfr 74.9 >60 3 Lipid Profile 01/31/2019 [facility] Triglycerides 184 mg/dL 4 (Trig/Chol/HDL) [address] [place] [address] [phone] Cholesterol 142 mg/dL 5 HDL Cholesterol 39.3 mg/dL 6 LDL Cholesterol 66 mg/dL 7 1 FASTING 2 FASTING 3 Because ethnic [...] >189 Procedures Date Code Description Status 05/30/2019 21560 ECHO Transthoracic, Real-Time 2D With Doppler And Color Completed Flow 05/30/2019 04635 ECHO Transthoracic, Real-Time 2D With Doppler And Color Completed Flow 05/28/2019 84298 Sleep Study Unattended,HRT Rate,Oxygen Sat,Resp Completed Effort/Airflow 05/07/2019 78242 EKG Tracing & Interpretation Completed 04/22/2019 78250 ECHO Stress Test Incl Perf Contiuous ekg Monitoring W/Phys Completed Superv 04/22/2019 29467 ECHO Stress Test Incl Perf Contiuous ekg Monitoring W/Phys Completed Superv 04/05/2019 00532 Diffusing Capacity Completed 04/05/2019 08486 Plethysmography Determination Lung Volumes & Per Airway Completed Resist 04/05/2019 03068 Pulmonary Function><Bronchodil Completed 02/22/2019 87869 EKG Tracing & Interpretation Completed 12/26/2018 29800 Treadmill Interp/Report Only Completed 12/26/2018 35096 Stress Test Supervsn W/Out I/R Completed Medical Devices Description No Information Available Encounters Type Date Location Provider Dx Diagnosis Office Visit 06/13/2019 [facility] Keyona Parmar NP I10 Essential (primary) 2:00p hypertension I77.810 Thoracic aortic ectasia E78.5 Hyperlipidemia, unspecified I25.10 Athscl heart disease of [place] coronary artery w/o ang pctrs G47.33 Obstructive sleep apnea (adult) (pediatric) Office Visit 06/11/2019 [place] Smooth M54.12 Radiculopathy, 1:00p Orthopedics at Cesia Jewell cervical region [place] G54.0 Brachial plexus disorders Office Visit 05/31/2019 11:00a Pulmonology And Khalida R06.02 Shortness of Sleep Services Of [place] Stanley breath Apparel Manager G47.33 Obstructive sleep apnea (adult) (pediatric) Office Visit 05/16/2019 [place] Keyona E78.5 Hyperlipidemia, 2:00p Cardiology Agata PHYSICIAN VICE PRESIDENT unspecified I10 Essential (primary) hypertension R06.02 Shortness of breath I25.10 Athscl heart disease of [place] coronary artery w/o ang pctrs Office Visit 05/07/2019 [place] Charles Waller E78.5 Hyperlipidemia, 8:40a Cardiology Cesia Menjivar unspecified R06.02 Shortness of breath M79.10 Myalgia, unspecified site R01.1 Cardiac murmur, unspecified I10 Essential (primary) hypertension Office Visit 05/03/2019 9:15a Pulmonology And Elyse R06.02 Shortness of Sleep Services Of MD Nakul breath Apparel Manager R06.83 Snoring Office Visit 04/30/2019 [place] Smooth M54.12 Radiculopathy, 3:00p Orthopedics at Cesia Jewell cervical region [place] G54.0 Brachial plexus disorders Office Visit 04/08/2019 10:00a Pulmonology And Elyse R06.02 Shortness of Sleep Services Of MD Nakul breath Apparel Manager R91.8 Other nonspecific abnormal finding of lung field Z87.891 Personal history of nicotine dependence Office Visit 02/22/2019 Brionna Rand E78.5 Hyperlipidemia, 11:00a Cardiology Of [place] PHYSICIAN VICE PRESIDENT unspecified Apparel Manager I10 Essential (primary) hypertension I25.10 Athscl heart disease of [place] coronary artery w/o ang pctrs R07.9 Chest pain, unspecified Office Visit 01/17/2019 3:00p [facility] Thuman, I25.10 Athscl heart PHYSICIAN VICE PRESIDENT disease of [place] coronary artery w/o ang pctrs I10 Essential (primary) hypertension E78.5 Hyperlipidemia, unspecified Z72.0 Tobacco use Assessments Date Code Description Provider 06/13/2019 I10 Essential (primary) hypertension Keyona Parmar NP 06/13/2019 I77.810 Thoracic aortic ectasia Keyona Parmar, [place] 06/13/2019 E78.5 Hyperlipidemia, unspecified Keyona Parmar, PHYSICIAN VICE PRESIDENT 06/13/2019 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 06/11/2019 G54.0 Brachial plexus disorders Smooth Jewell M.D. 05/31/2019 R06.02 Shortness of breath Khalida Stanley NP 05/31/2019 G47.33 Obstructive sleep apnea (adult) Khalida Stanley NP (pediatric) 05/30/2019 R06.02 Shortness of breath Charles Menjivar M.D. 05/30/2019 R06.02 Shortness of breath [place] [facility] 05/30/2019 I25.10 Atherosclerotic heart disease of Charles Menjivar M.D. [place] coronary artery without angina pectoris 05/30/2019 I25.10 Atherosclerotic heart disease of [place] [facility] Schedule [place] coronary artery without angina pectoris 05/30/2019 I10 Essential (primary) hypertension Charles Menjivar M.D. 05/30/2019 I10 Essential (primary) hypertension [place] [facility] 05/30/2019 I50.32 Chronic diastolic (congestive) heart Charles Menjivar M.D. 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 02/22/2019 E78.5 Hyperlipidemia, unspecified Keyona Parmar NP 02/22/2019 R06.02 Shortness of breath Charles Menjivar M.D. 02/22/2019 I10 Essential (primary) hypertension Keyona Parmar, PHYSICIAN VICE PRESIDENT 02/22/2019 I25.10 Atherosclerotic heart disease of Keyona Parmar PHYSICIAN VICE PRESIDENT [place] coronary artery without angina pectoris 02/22/2019 R07.9 Chest pain, unspecified Keyona Parmar, PHYSICIAN VICE PRESIDENT 01/17/2019 I25.10 Atherosclerotic heart disease of Keyona Parmar, PHYSICIAN VICE PRESIDENT [place] coronary artery without angina pectoris 01/17/2019 I10 Essential (primary) hypertension Keyona Parmar, PHYSICIAN VICE PRESIDENT 01/17/2019 E78.5 Hyperlipidemia, unspecified Keyona Parmar, PHYSICIAN VICE PRESIDENT 01/17/2019 Z72.0 Tobacco use Keyona Parmar, PHYSICIAN VICE PRESIDENT 12/26/2018 I25.10 Atherosclerotic heart disease of Monique Ellis M.D. [place] coronary artery without angina pectoris Plan of Treatment Future Appointment(s):07/22/2019 3:00 pm - Keyona Parmar NP at [facility]07/30/2019 2:45 pm - Smooth Jewell M.D. at [facility] at [facility]60/24/2020 11:00 am - Khalida Stanley NP at [facility]09/04/2019 11:20 am - Charles Menjivar M.D. at [facility]06/11/2019 - Smooth Jewell M.D.M54.12 Radiculopathy, cervical regionNew Medication:Gabapentin 300 mg - 1 by mouth every night at bedtimeNew Therapy:Physical EugawayH85.0 Brachial plexus disordersNew Therapy:Physical TherapyFollow up:6 to 8 weeks Functional Status Description No Information Available Mental Status Description No Information Available Referrals Refer to Reason for Referral Status Appt Date Elyse Mota MD Sent [address] [place] [address] [phone] Closed [facility] Sent [address] [place] [address] [phone]
--- OUTSIDE RECORDS SUMMARY | 2019-06-29 14:16 | XMS REPORT | Continuity of Care Document ---
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 Onset: 12/23/2014 Encounter for other orthopedic Smooth Jewell M.D. Onset: 03/11/2015 aftercare Late effect of sprain AND/OR strain Smooth Jewell M.D. Onset: 08/02/2016 without tendon injury Acute subendocardial infarction Ned Davenport MD, [facility], Onset: 11/07/2018 [facility] Chronic kidney disease stage 3 Ned Davenport MD, [facility], Onset: 11/07/2018 [facility] Social History Type Date Description Comments Sex Unknown Tobacco Use Start: Unknown End: Former Cigarette Smoker 30 years 2 Packs Daily Smoking Status Reviewed: 05/16/19 Former Cigarette Smoker 30 years 2 Packs [...] Medications SIG Qnty Indications Ordering Date Provider Rosuvastatin Calcium 1 by mouth every 90tabs Charles Waller 05/07/2019 5mg day Cesia Menjivar Tablets Blood Pressure Monitor 1 machine with 1 1units I10 Keyona Parmar, 2018 Deluxe/Automatic blood pressure MANAGER OF INVESTIGATIONS cuff adult Device regular size Plavix 1 by mouth every 90tabs Keyona Parmar, 11/06/2018 75mg Tablets day MANAGER OF INVESTIGATIONS Nitroglycerin 1 sl q5mins x3 as 25tabs [...] 40mg Tablets Isosorbide 1 by mouth 30tabs Keyona Parmar NP 03/21/2019 - Mononitrate every day 04/22/2019 20mg Tablets Rosuvastatin Calcium 1/2 by mouth 90tabs Keyona Parmar NP 12/18/2018 - every day 05/07/2019 20mg Tablets Rosuvastatin Calcium 1 by mouth 90tabs E78.00 Keyona Parmar NP 2018 - every day 12/17/2018 20mg Tablets before bedtime. Lipitor 2 tabs by mouth 30tabs E78.00 Charles Waller 11/15/2018 - 20mg Tablets every night Cesia Menjivar 12/17/2018 Medications Administered in Office Medication SIG Qnty Indications Ordering Provider Date Records Fee Monique Ellis, 03/11/2019 Injection Cesia Depomedrol 40MG DAVID Onofre 06/02/2015 Injection Depomedrol 40MG Smooth Jewell M.D. 04/23/2015 Injection Celestone 3 mg and 3mg DAVID Onofre 09/30/2014 Injection Immunizations Description No Information Available Vital Signs Date Vital Result Comment 05/16/2019 12:53pm Height 64 inches 5'4" Weight 196.50 lb with shoes Heart Rate 56 /min ure reg cuff BP Systolic Sitting 150 mmHg BP Diastolic Sitting 100 mmHg Respiratory Rate 18 /min BMI (Body Mass Index) 33.7 kg/m2 05/07/2019 8:35am Height 64 inches 5'4" Weight 197.38 lb with shoes Heart Rate 54 /min left radial BP Systolic Sitting 134 mmHg Lue, reg cuff BP Diastolic Sitting 82 mmHg Lue, reg cuff BP Systolic Standing 130 mmHg Lue, reg cuff BP Diastolic Standing 78 mmHg Lue, reg cuff BMI (Body Mass Index) 33.9 kg/m2 Ejection Fraction 55%-60% stress test 04/22/19 Results Test Acquired Date Facility Test Result H/L Range Note Lipid Panel - 01/31/2019 [facility] Creatine 42 U/L Normal 10- 223 1, [address] Kinase(CK) [place] [address] [phone] Comp Metabolic 01/31/2019 [facility] Sodium 141 mmol/L Normal 135-[address] [place] [address] [phone] Potassium 4.1 mmol/L Normal 3.5-5.0 Chloride 108 [...] Egfr 74.9 >60 3 Lipid Profile 01/31/2019 [facility] Triglycerides 184 mg/dL 4 (Trig/Chol/HDL) [address] [place] [address] [phone] Cholesterol 142 mg/dL 5 HDL Cholesterol 39.3 mg/dL 6 LDL Cholesterol 66 mg/dL 7 CBC Auto 12/17/2018 [facility] White Blood 8.9 10^3/uL Normal 3.5-10.[address] [place] [address] [phone] Red Blood Count 4.70 10^6/uL Normal 4.18-5.48 [...] High: >189 Procedures Date Code Description Status 05/07/2019 69255 EKG Tracing & Interpretation Completed 04/22/2019 01454 ECHO Stress Test Incl Perf Contiuous ekg Monitoring W/Phys Completed Superv 04/22/2019 71820 ECHO Stress Test Incl Perf Contiuous ekg Monitoring W/Phys Completed Superv 04/05/2019 67100 Diffusing Capacity Completed 04/05/2019 35715 Plethysmography Determination Lung Volumes & Per Airway Completed Resist 04/05/2019 79362 Pulmonary Function><Bronchodil Completed 02/22/2019 53015 EKG Tracing & Interpretation Completed 12/26/2018 83941 Treadmill Interp/Report Only Completed 12/26/2018 55261 Stress Test Supervsn W/Out I/R Completed 12/17/2018 57382 EKG Tracing & Interpretation Completed Medical Devices Description No Information Available Encounters Type Date Location Provider Dx Diagnosis Office Visit 05/07/2019 [facility] Charles Waller E78.5 Hyperlipidemia , 8:40a Cesia Menjivar unspecified R06.02 Shortness of breath M79.10 Myalgia, unspecified site R01.1 Cardiac murmur, unspecified I10 Essential (primary) hypertension Office Visit 05/03/2019 9:15a Pulmonology And Elyse R06.02 Shortness of Sleep Services Of [place] Nakul breath Casing Crew R06.83 Snoring Office Visit 04/30/2019 [place] Smooth M54.12 Radiculopathy, 3:00p Orthopedics at Cesia Jewell cervical region [place] G54.0 Brachial plexus disorders Office Visit 04/08/2019 10:00a Pulmonology And Elyse R06.02 Shortness of Sleep Services Of [place] Nakul breath Casing Crew R91.8 Other nonspecific abnormal finding of lung field Z87.891 Personal history of nicotine dependence Office Visit 02/22/2019 Brionna Rand E78.5 Hyperlipidemia, 11:00a Cardiology Of [place], MANAGER OF INVESTIGATIONS unspecified Casing Crew I10 Essential (primary) hypertension 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 R07.9 Chest pain, unspecified Office Visit 01/17[facility]2019 3:00p [facility] Athscl heart MANAGER OF INVESTIGATIONS disease of [place] coronary artery w/o ang pctrs I10 Essential (primary) hypertension E78.5 Hyperlipidemia, unspecified Z72.0 Tobacco use Office Visit 12/17/2018 3:30p [facility] N18.3 Chronic kidney MANAGER OF INVESTIGATIONS disease, stage 3 (moderate) 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 E78.00 Pure hypercholesterolemia, unspecified I10 Essential (primary) hypertension R53.83 Other fatigue Office Visit 11/15/2018 3:20p [facility] Charles Waller I21.4 Non-St elevation Of Kevin Menjivar M.D. (Nstemi) myocardial infarction N18.3 Chronic kidney disease, stage 3 (moderate) 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 E78.00 Pure hypercholesterolemia, unspecified Assessments Date Code Description Provider 05/16/2019 E78.5 Hyperlipidemia, unspecified [facility], MANAGER OF INVESTIGATIONS 05/16/2019 I10 Essential (primary) hypertension [facility], MANAGER OF INVESTIGATIONS 05/16/2019 R06.02 Shortness of breath [facility], MANAGER OF INVESTIGATIONS 05/16/2019 I25.10 Atherosclerotic heart disease of [place] [facility], MANAGER OF INVESTIGATIONS coronary artery without angina pectoris 05/07/2019 E78.5 [...] Schedule 04/22/2019 I25.10 Atherosclerotic heart disease of [place] [facility] Schedule coronary artery without angina pectoris 04/08/2019 R06.02 Shortness of breath Elyse Mota MD 04/08/2019 R91.8 Other nonspecific abnormal finding of Elyse Mota MD lung field 04/08/2019 Z87.891 Personal history of nicotine dependence Elyse Mota MD 04/05/2019 R07.9 Chest pain, unspecified Elyse Mota MD 02/22/2019 R07.9 Chest pain, unspecified Charles Menjivar M.D. 02/22/2019 E78.5 Hyperlipidemia, unspecified Keyona Thjatinder, MANAGER OF INVESTIGATIONS 02/22/2019 R06.02 Shortness of breath Charles Menjivar M.D. 02/22/2019 I10 Essential (primary) hypertension Keyona Thuman, MANAGER OF INVESTIGATIONS 02/22/2019 I25.10 Atherosclerotic heart disease of [place] Keyona Martinezuman, MANAGER OF INVESTIGATIONS coronary artery without angina pectoris 02/22/2019 R07.9 Chest pain, unspecified Keyona Thuman, MANAGER OF INVESTIGATIONS 01/17/2019 I25.10 Atherosclerotic heart disease of [place] Keyona Parmar, MANAGER OF INVESTIGATIONS coronary artery without angina pectoris 01/17/2019 I10 Essential (primary) hypertension Keyona Thuman, MANAGER OF INVESTIGATIONS 01/17/2019 E78.5 Hyperlipidemia, unspecified Keyona Thuman, MANAGER OF INVESTIGATIONS 01/17/2019 Z72.0 Tobacco use Keyona Thuman, MANAGER OF INVESTIGATIONS 12/26/2018 I25.10 Atherosclerotic heart disease of [place] Monique Ellis M.D. coronary artery without angina pectoris 12/17/2018 R94.31 Abnormal electrocardiogram [ECG] [EKG] Charles Menjivar M.D. 12/17/2018 N18.3 Chronic kidney disease, stage 3 Keyona ParmarNICOLÁS (moderate) 12/17/2018 I25.10 Atherosclerotic heart disease of [place] Keyona Parmar MANAGER OF INVESTIGATIONS coronary artery without angina pectoris 12/17/2018 E78.00 Hypercholesterolemia Keyona Parmar, [place] 12/17/2018 I10 Essential (primary) hypertension Keyona Parmar, NICOL[place]S 12/17/2018 R53.83 Other fatigue Keyona Parmar, MANAGER OF INVESTIGATIONS 11/15/2018 I21.4 Non-St elevation (Nstemi) myocardial Charles Menjivar M.D. infarction 11/15/2018 N18.3 Chronic kidney disease, stage 3 Charles Menjivar M.D. (moderate) 11/15/2018 I25.10 Atherosclerotic heart disease of [place] Charles Menjivar M.D. coronary artery without angina pectoris 11/15/2018 E78.00 Hypercholesterolemia Charles Menjivar M.D. Plan of Treatment Future Appointment(s):06/13/2019 2:00 pm - Keyona Parmar NP at [facility]09/04/2019 11:20 am - Charles Menjivar M.D. at [facility] 9:00 am - [place] [facility] Schedule at [facility]05/31/2019 11:00 am - Khalida Stanley NP at [facility]06/11/2019 1: 00 pm - Smooth Jewell M.D. at [facility] at Hfdjxvyl29/13/2020 - Keyona Parmar NPE78.5 Hyperlipidemia, bugpwyeglxfR19 Essential (primary) hypertensionFollow up:follow up with Keyona in 4 weeks.Recommendations:Stop WuwfhtlgexD60.02 Shortness of gqeinmZ97.10 Atherosclerotic heart disease of [place] coronary artery without angina pectoris Functional Status Description No Information Available Mental Status Description No Information Available Referrals Refer to Dr Reason for Referral Status Appt Date Elyse Mota MD Sent [address] [phone] Closed [facility] Sent [address] [place], [place] [id number] [phone]
--- OUTSIDE RECORDS SUMMARY | 2019-06-29 14:16 | XMS REPORT | Continuity of Care Document ---
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 Onset: 12/23/2014 Encounter for other orthopedic Smooth Jewell M.D. Onset: 03/11/2015 aftercare Late effect of sprain AND/OR strain Smooth Jewell M.D. Onset: 08/02/2016 without tendon injury Acute subendocardial infarction Ned Davenport MD, [facility], Onset: 11/07/2018 [facility] Chronic kidney disease stage 3 Ned Davenport MD, [facility], Onset: 11/07/2018 [facility] Social History Type Date Description Comments Sex [...] every 90tabs Keyona Parmar, 05/17/2019 25mg day BAND MANAGER Tablets Rosuvastatin Calcium 1 by mouth every 90tabs Charles Waller 05/07/2019 5mg day Cesia Menjivar Tablets Blood Pressure Monitor 1 machine with 1 1units I10 [facility], 2018 Deluxe/Automatic blood pressure BAND MANAGER cuff adult Device regular size Plavix 1 by mouth every 90tabs Keyona jatinder, 11/06/2018 75mg Tablets day BAND MANAGER Nitroglycerin 1 sl q5mins x3 as 25tabs Ned Laura 11/06/2018 0.4mg needed for chest MD Ethel, Tablets Sub pain FAC, [facility] Aspirin 81 1 by mouth [...] H/L Range Note Lipid Panel - 01/31/2019 [facility] Creatine 42 U/L Normal 10- 223 1, [address] Kinase(CK) [place] [address] [phone] Comp Metabolic 01/31/2019 [facility] Sodium 141 mmol/L Normal 135-[address] [place] [address] [phone] Potassium 4.1 mmol/L Normal 3.5-5.0 Chloride 108 [...] Egfr 74.9 >60 3 Lipid Profile 01/31/2019 [facility] Triglycerides 184 mg/dL 4 (Trig/Chol/HDL) [address] [place] [address] [phone] Cholesterol 142 mg/dL 5 HDL Cholesterol 39.3 mg/dL 6 LDL Cholesterol 66 mg/dL 7 CBC Auto 12/17/2018 [facility] White Blood 8.9 10^3/uL Normal 3.5-10.[address] [place] [address] [phone] Red Blood Count 4.70 10^6/uL Normal 4.18-5.48 [...] >189 Procedures Date Code Description Status 05/30/2019 82555 ECHO Transthoracic, Real-Time 2D With Doppler And Color Completed Flow 05/30/2019 07253 ECHO Transthoracic, Real-Time 2D With Doppler And Color Completed Flow 05/28/2019 06316 Sleep Study Unattended,HRT Rate,Oxygen Sat,Resp Completed Effort/Airflow 05/07/2019 42887 EKG Tracing & Interpretation Completed 04/22/2019 78057 ECHO Stress Test Incl Perf Contiuous ekg Monitoring W/Phys Completed Superv 04/22/2019 18163 ECHO Stress Test Incl Perf Contiuous ekg Monitoring W/Phys Completed Superv 04/05/2019 06591 Diffusing Capacity Completed 04/05/2019 08701 Plethysmography Determination Lung Volumes & Per Airway Completed Resist 04/05/2019 97647 Pulmonary Function><Bronchodil Completed 02/22/2019 78839 EKG Tracing & Interpretation Completed 12/26/2018 58772 Treadmill Interp/Report Only Completed 12/26/2018 01855 Stress Test Supervsn W/Out I/R Completed 12/17/2018 25502 EKG Tracing & Interpretation Completed Medical Devices Description No Information Available Encounters Type Date Location Provider Dx Diagnosis Office Visit 06/13/2019 [place] Tommy Parmar NP I10 Essential (primary) 2:00p hypertension I77.810 Thoracic aortic ectasia E78.5 Hyperlipidemia, unspecified I25.10 Athscl heart disease of [place] coronary artery w/o ang pctrs G47.33 Obstructive sleep apnea (adult) (pediatric) Office Visit 05/31/2019 11:00a Pulmonology And Khalida R06.02 Shortness of [facility] Services Of [place] Stanley breath It Operations Analyst G47.33 Obstructive sleep apnea (adult) (pediatric) Office Visit 05/16/2019 El[facility] Rand E78.5 Hyperlipidemia, 2:00p Cardiology [place] Parmar unspecified I10 Essential (primary) hypertension R06.02 Shortness of breath I25.10 Athscl heart disease [place] coronary artery w/o ang pctrs Office Visit 05/07/2019 [place] Charles Waller E78.5 Hyperlipidemia, 8:40a Cardiology Cesia Menjivar unspecified R06.02 Shortness of breath M79.10 Myalgia, unspecified site R01.1 Cardiac murmur, unspecified I10 Essential (primary) hypertension Office Visit 05/03/2019 9:15a Pulmonology And Elyse R06.02 Shortness of Sleep Services Of MD Nakul breath It Operations Analyst R06.83 Snoring Office Visit 04/30/2019 [place] Smooth M54.12 Radiculopathy, 3:00p Orthopedics at Cesia Jewell cervical region [place] G54.0 Brachial plexus disorders Office Visit 04/08/2019 10:00a Pulmonology And Elyse R06.02 Shortness of Sleep Services Of MD Nakul breath It Operations Analyst R91.8 Other nonspecific abnormal finding of lung field Z87.891 Personal history of nicotine dependence Office Visit 02/22/2019 Brion[place] Rand E78.5 Hyperlipidemia, 11:00a Cardiology Daya Parmar NP unspecified It Operations Analyst I10 Essential (primary) hypertension I25.10 Athscl heart disease [place] coronary artery w/o ang pctrs R07.9 Chest pain, unspecified [facility] I25.10 Athscl heart BAND MANAGER disease [place] coronary artery w/o ang pctrs I10 Essential (primary) hypertension E78.5 Hyperlipidemia, unspecified Z72.0 Tobacco use Office Visit 12/17/2018 [facility], N18.3 Chronic kidney BAND MANAGER disease, stage 3 (moderate) I25.10 Athscl heart disease [place] coronary artery w/o ang pctrs E78.00 Pure hypercholesterolemia, unspecified I10 Essential (primary) hypertension R53.83 Other fatigue Assessments Date Code Description Provider 06/13/2019 I10 Essential (primary) hypertension Keyona Parmar NP 06/13/2019 I77.810 Thoracic aortic ectasia Keyona Parmar NP 06/13/2019 E78.5 Hyperlipidemia, unspecified Keyona Parmar NP 06/13/2019 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 coronary artery without angina pectoris 05/30/2019 I25.10 Atherosclerotic heart disease of [place] ECHO Schedule coronary artery without angina pectoris 05/30/2019 I10 Essential (primary) hypertension Charles Menjivar M.D. 05/30/2019 I10 Essential (primary) hypertension [place] ECHO Schedule 05/30/2019 I50.32 Chronic diastolic (congestive) heart Charles Menjivar M.D. failure 05/30/2019 I50.32 Chronic diastolic (congestive) heart [place] E[facility] Schedule failure 05/28/2019 G47.33 Obstructive sleep apnea (adult) Elyse Mota MD (pediatric) 05/16/2019 E78.5 Hyperlipidemia, unspecified Keyona Parmar, [place] 05/16/2019 I10 Essential (primary) hypertension Keyona Parmar, [place] 05/16/2019 R06.02 Shortness of breath Keyona Parmar, BAND MANAGER 05/16/2019 I25.10 Atherosclerotic heart disease of [place] Keyona Martinezjatinder, BAND MANAGER coronary artery without angina pectoris 05/07/2019 E78.5 [...] Schedule 04/22/2019 I25.10 Atherosclerotic heart disease [place] ECHO Schedule coronary artery without angina pectoris 04/08/2019 R06.02 Shortness of breath Elyse Mota MD 04/08/2019 R91.8 Other nonspecific abnormal finding of Elyse Mota MD lung field 04/08/2019 Z87.891 Personal history of nicotine dependence Elyse Mota MD 04/05/2019 R07.9 Chest pain, unspecified Elyse Mota MD 02/22/2019 R07.9 Chest pain, unspecified Charles Menjivar M.D. 02/22/2019 E78.5 Hyperlipidemia, unspecified Keyona Parmar, BAND MANAGER 02/22/2019 R06.02 Shortness of breath Charles Menjivar M.D. 02/22/2019 I10 Essential (primary) hypertension Keyona Parmar, BAND MANAGER 02/22/2019 I25.10 Atherosclerotic heart disease of [place] Keyona Martinezuman, BAND MANAGER coronary artery without angina pectoris 02/22/2019 R07.9 Chest pain, unspecified Keyona Thuman, BAND MANAGER 01/17/2019 I25.10 Atherosclerotic heart disease of [place] Keyona Parmar, BAND MANAGER coronary artery without angina pectoris 01/17/2019 I10 Essential (primary) hypertension Keyona Juanjatinder, [place] 01/17/2019 E78.5 Hyperlipidemia, unspecified Keyona Parmar, BAND MANAGER 01/17/2019 Z72.0 Tobacco use Keyona Parmar, BAND MANAGER 12/26/2018 I25.10 Atherosclerotic heart disease [place] Monique Ellis M.D. coronary artery without angina pectoris 12/17/2018 R94.31 Abnormal electrocardiogram [ECG] [EKG] Charles Menjivar M.D. 12/17/2018 N18.3 Chronic kidney disease, stage 3 Keyona Parmar NP (moderate) 12/17/2018 I25.10 Atherosclerotic heart disease [place] Keyona Parmar BAND MANAGER coronary artery without angina pectoris 12/17/2018 E78.00 Hypercholesterolemia Keyona Martinezjatinder, BAND MANAGER 12/17/2018 I10 Essential (primary) hypertension Keyona Parmar NP 12/17/2018 R53.83 Other fatigue Keyona Parmar NP Plan of Treatment Future Appointment(s):07/30/2019 2:45 pm - Smooth Jewell M.D. at [facility]07/26/2019 11:00 am - Khalida Stanley NP at [facility]09/04/2019 11:20 am - Charles Menjivar M.D. at [facility]06/11/2019 - Smooth Jewell M.D.M54.12 Radiculopathy, cervical regionNew Medication:Gabapentin 300 mg - 1 by mouth every night at bedtimeNew Therapy:Physical CcpzxzqC89.0 Brachial plexus disordersNew Therapy: Physical TherapyFollow up:6 to 8 weeks Functional Status Description No Information Available Mental Status Description No Information Available Referrals Refer to Reason for Referral Status Appt Date Elyse Mota MD Sent [address] [place] [address] [phone] Closed [facility] [address] [place] [address] [phone]
--- OUTSIDE RECORDS SUMMARY | 2019-06-29 14:16 | XMS REPORT | Continuity of Care Document ---
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 Onset: 12/23/2014 Encounter for other orthopedic Smooth Jewell M.D. Onset: 03/11/2015 aftercare Late effect of sprain AND/OR strain Smooth Jewell M.D. Onset: 08/02/2016 without tendon injury Acute subendocardial infarction Ned Davenport MD, [facility], Onset: 11/07/2018 [facility] Chronic kidney disease stage 3 Ned Davenport MD, [facility], Onset: 11/07/2018 [facility] Social History Type Date Description [...] every 90tabs Keyona Parmar, 05/17/2019 25mg day FUNCTIONAL ARCHITECT Tablets Rosuvastatin Calcium 1 by mouth every 90tabs Charles Waller 05/07/2019 5mg day Cesai Menjivar Tablets Blood Pressure Monitor 1 machine with 1 1units I10 Keyona [facility], 2018 Deluxe/Automatic blood pressure FUNCTIONAL ARCHITECT cuff adult Device regular size Plavix 1 by mouth every 90tabs Keyona jatinder, 11/06/2018 75mg Tablets day FUNCTIONAL ARCHITECT Nitroglycerin 1 sl q5mins x3 as 25tabs [...] 40mg Tablets Isosorbide [facility] - Mononitrate every day 04/22/2019 [...] H/L Range Note Lipid Panel - 01/31/2019 [facility] Creatine 42 U/L Normal 10- 223 1, [address] Kinase(CK) [place] [address] [phone] Comp Metabolic 01/31/2019 [facility] Sodium 141 mmol/L Normal 135-[address] [place] [address] [phone] Potassium 4.1 mmol/L Normal 3.5-5.0 Chloride 108 [...] Egfr 74.9 >60 3 Lipid Profile 01/31/2019 [facility] Triglycerides 184 mg/dL 4 (Trig/Chol/HDL) [address] [place] [address] [phone] Cholesterol 142 mg/dL 5 HDL Cholesterol 39.3 mg/dL 6 LDL Cholesterol 66 mg/dL 7 CBC Auto 12/17/2018 [facility] White Blood 8.9 10^3/uL Normal 3.5-10.[address] [place] [address] [phone] Red Blood Count 4.70 10^6/uL Normal 4.18-5.48 [...] >189 Procedures Date Code Description Status 05/30/2019 79398 ECHO Transthoracic, Real-Time 2D With Doppler And Color Completed Flow 05/30/2019 47448 ECHO Transthoracic, Real-Time 2D With Doppler And Color Completed Flow 05/28/2019 77128 Sleep Study Unattended,HRT Rate,Oxygen Sat,Resp Completed Effort/Airflow 05/07/2019 53399 EKG Tracing & Interpretation Completed 04/22/2019 52833 ECHO Stress Test Incl Perf Contiuous ekg Monitoring W/Phys Completed Superv 04/22/2019 89194 ECHO Stress Test Incl Perf Contiuous ekg Monitoring W/Phys Completed Superv 04/05/2019 01678 Diffusing Capacity Completed 04/05/2019 63931 Plethysmography Determination Lung Volumes & Per Airway Completed Resist 04/05/2019 27504 Pulmonary Function><Bronchodil Completed 02/22/2019 00957 EKG Tracing & Interpretation Completed 12/26/2018 04896 Treadmill Interp/Report Only Completed 12/26/2018 91242 Stress Test Supervsn W/Out I/R Completed 12/17/2018 07951 EKG Tracing & Interpretation Completed Medical Devices Description No Information Available Encounters Type Date Location Provider Dx Diagnosis Office Visit 05/31/2019 [facility] Khalida R06.02 Shortness of 11:00a [facility] Stanley breath Scrap Baller G47.33 Obstructive sleep apnea (adult) (pediatric) Office Visit 05/16/2019 [place] Keyona E78.5 Hyperlipidemia, 2:00p Cardiology [place] Parmar unspecified I10 Essential (primary) hypertension R06.02 Shortness of breath I25.10 Athscl heart disease of [place] coronary artery w/o ang pctrs Office Visit 05/07/2019 Elio Waller E78.5 Hyperlipidemia, 8:40a Cardiology Cesia Menjivar unspecified R06.02 Shortness of breath M79.10 Myalgia, unspecified site R01.1 Cardiac murmur, unspecified I10 Essential (primary) hypertension Office Visit 05/03/2019 9:15a Pulmonology And Elyse R06.02 Shortness of Sleep Services Of MD Nakul breath Scrap Baller R06.83 Snoring Office Visit 04/30/2019 [facility] M54.12 Radiculopathy, 3:00p Orthopedics at Cesia Jewell cervical region [place] G54.0 Brachial plexus disorders Office Visit 04/08/2019 10:00a Pulmonology And Elyse R06.02 Shortness of Sleep Services Of MD Nakul breath Scrap Baller R91.8 Other nonspecific abnormal finding of lung field Z87.891 Personal history of nicotine dependence [facility] [facility], 11:00a Cardiology Of [facility], FUNCTIONAL ARCHITECT unspecified Scrap Baller I10 Essential (primary) hypertension I25.10 Athscl heart disease of [place] coronary artery w/o ang pctrs R07.9 Chest pain, unspecified Office Visit 01/17/2019 3:00p [facility], I25.10 Athscl heart FUNCTIONAL ARCHITECT disease of [place] coronary artery w/o ang pctrs I10 Essential (primary) hypertension E78.5 Hyperlipidemia, unspecified Z72.0 Tobacco use Office Visit 12/17/2018 3:30p [facility], N18.3 Chronic kidney FUNCTIONAL ARCHITECT disease, stage 3 (moderate) I25.10 Athscl heart disease of [place] coronary artery w/o ang pctrs E78.00 Pure hypercholesterolemia, unspecified I10 Essential (primary) hypertension R53.83 Other fatigue Assessments Date Code Description Provider 05/31/2019 R06.02 Shortness of breath Khalida Stanley NP 05/31/2019 G47.33 Obstructive sleep apnea (adult) Khalida Stanley NP (pediatric) 05/30/2019 R06.02 Shortness of breath Charles Menjivar M.D. 05/30/2019 R06.02 Shortness of breath [place] E[place] Schedule 05/30/2019 I25.10 Atherosclerotic heart disease of [place] Charles Menjivar M.D. coronary artery without angina pectoris 05/30/2019 I25.10 Atherosclerotic heart disease of [place] ECHO Schedule coronary artery without angina pectoris 05/30/2019 I10 Essential (primary) hypertension Charles Menjivar M.D. 05/30/2019 I10 Essential (primary) hypertension [place] E[facility] Schedule 05/30/2019 I50.32 Chronic diastolic (congestive) heart Charles Menjivar M.D. 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 02/22/2019 E78.5 Hyperlipidemia, unspecified Keyona Thuman, FUNCTIONAL ARCHITECT 02/22/2019 R06.02 Shortness of breath Charles Menjivar M.D. 02/22/2019 I10 Essential (primary) hypertension Keyona Thuman, FUNCTIONAL ARCHITECT 02/22/2019 I25.10 Atherosclerotic heart disease of [place] Keyona Parmar, FUNCTIONAL ARCHITECT coronary artery without angina pectoris 02/22/2019 R07.9 Chest pain, unspecified Keyona Thuman, FUNCTIONAL ARCHITECT 01/17/2019 I25.10 Atherosclerotic heart disease of [place] Keyona Parmar, FUNCTIONAL ARCHITECT coronary artery without angina pectoris 01/17/2019 I10 Essential (primary) hypertension Keyona Thuman, FUNCTIONAL ARCHITECT 01/17/2019 E78.5 Hyperlipidemia, unspecified Keyona Thuman, FUNCTIONAL ARCHITECT 01/17/2019 Z72.0 Tobacco use Keyona Thuman, FUNCTIONAL ARCHITECT 12/26/2018 I25.10 Atherosclerotic heart disease of [place] Monique Ellis M.D. coronary artery without angina pectoris 12/17/2018 R94.31 Abnormal electrocardiogram [ECG] [EKG] Charles Menjivar M.D. 12/17/2018 N18.3 Chronic kidney disease, stage 3 Keyonagil Parmar NP (moderate) 12/17/2018 I25.10 Atherosclerotic heart disease of [place] Keyona Parmar, FUNCTIONAL ARCHITECT coronary artery without angina pectoris 12/17/2018 E78.00 Hypercholesterolemia Keyona Thuman, FUNCTIONAL ARCHITECT 12/17/2018 I10 Essential (primary) hypertension Keyona Thuman, FUNCTIONAL ARCHITECT 12/17/2018 R53.83 Other fatigue Keyona Parmar NP Plan of Treatment Future Appointment(s):07/26/2019 11:00 am - Khalida Stanley NP at [facility]09/04/2019 11:20 am - Charles Menjivar M.D. at [facility]06/11/2019 1:00 pm - Smooth Jewell M.D. at [facility]/28/2020 - Khalida Stanley, NPR06.02 Shortness of rmcaxhQ38.33 Obstructive sleep apnea (adult) (pediatric)Follow up:6-8 weeks (MSD )Recommendations:You are being set up with CPAP for your sleep apnea through [employer] [facility] . 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 If you have difficulty with your equipment, or need to replace your mask or hoses, please contact your homecare agency. If you have any further questions, please call the [facility] at [phone] Ifyou have any sleepiness while driving you [...] MD Sent [address] [place] [address] [phone] Closed [facility] [address] [place] [address] [phone]
--- OUTSIDE RECORDS SUMMARY | 2019-06-29 14:17 | XMS REPORT | Continuity of Care Document ---
:1965 External Reference #:[id number] Author Name Smooth Jewell M.D. 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 Onset: 12/23/2014 Encounter for other orthopedic Smooth Jewell M.D. Onset: 03/11/2015 aftercare Late effect of sprain AND/OR strain Smooth Jewell M.D. Onset: 08/02/2016 without tendon injury Acute subendocardial infarction Ned Davenport MD, [facility], Onset: 11/07/2018 [facility] Chronic kidney disease stage 3 Ned Davenport MD, [facility], Onset: 11/07/2018 [facility] Social History Type Date Description Comments Sex Unknown Tobacco Use Start: Unknown End: Former Cigarette Smoker 30 years 2 Packs Daily Smoking Status Reviewed: 04/30/19 Former Cigarette Smoker 30 years 2 Packs [...] Qnty Indications Ordering Date Provider Rosuvastatin Calcium 1/2 by mouth 90tabs Keyona Parmar, 12/18/2018 20mg every day [employer] Tablets Blood Pressure Monitor 1 machine with 1 1units I10 [facility], 2018 Deluxe/Automatic blood pressure [employer] cuff adult Device regular size Losartan Potassium 1 by mouth every 90tabs [facility], 11/06/2018 25mg day [employer] Tablets Plavix 1 by mouth every 90tabs [facility], 11/06/2018 75mg Tablets day [employer] Nitroglycerin 1 sl q5mins x3 as 25tabs Ned Laura 11/06/2018 0.4mg needed for chest MD Ethel, Tablets Sub pain [facility], [facility] Aspirin 81 1 by mouth every Unknown 81mg Tablets day Metoprolol Succinate 1/2 by mouth Unknown ER every day 25mg Tablets ER 24HR Omeprazole 1 by mouth every Unknown 40mg Capsules day Tramadol HCL 1 tablet by mouth Unknown 50mg Tablets every 6 hours as needed pain Metformin HCL 1 by mouth twice Unknown 500mg a day Tablets History Medications Atorvastatin Calcium 1 by mouth 90tabs Charles Waller 04/22/2019 - every day Cesia Menjivar 04/22/2019 40mg Tablets [facility]/21[facility]2019 - Mononitrate every day 04/22/2019 20mg Tablets Rosuvastatin Calcium 1 by mouth 90tabs E78.00 Keyona Parmar NP 2018 - every day 12/17/2018 20mg Tablets before bedtime. Lipitor 2 tabs by mouth 30tabs E78.00 Charles Waller 11/15/2018 - 20mg Tablets every night Cesia Menjivar 12/17/2018 Lipitor 1 by mouth Ned Davenport, 11/06/2018 - 80mg Tablets every day. Pt , [facility], [facility] 11/15/2018 takes at 2100 Medications Administered in Office Medication SIG Qnty Indications Ordering Provider Date Records Fee Monique Ellis, 03/11/2019 Injection Cesia Depomedrol 40MG DAVID Onofre 06/02/2015 Injection Depomedrol 40MG Smooth Jewell M.D. 04/23/2015 Injection Celestone 3 mg and 3mg DAVID Onofre 09/30/2014 Injection Immunizations Description No Information Available Vital Signs Date Vital Result Comment 04/30/2019 2:14pm Height 64 inches 5'4" Weight 196.00 lb Heart Rate 53 /min BP Systolic Sitting 120 mmHg BP Diastolic Sitting 80 mmHg Body Temperature 97.4 F BMI (Body Mass Index) 33.6 kg/m2 04/08/2019 9:30am Height 64 inches 5'4" Weight 195.25 lb Heart Rate 50 /min BP Systolic Sitting 140 mmHg Lue reg cuff BP Diastolic Sitting 102 mmHg Lue reg cuff O2 % BldC Oximetry 95 % On Ra BMI (Body Mass Index) 33.5 kg/m2 Results Test Acquired Date Facility Test Result H/L Range Note Lipid Panel - 01/31/2019 [facility] Creatine 42 U/L Normal 10- 223 1, [address] Kinase(CK) [place] [address] [phone] Comp Metabolic 01/31/2019 [facility] Sodium 141 mmol/L Normal 135-[address] [place] [address] [phone] Potassium 4.1 mmol/L Normal 3.5-5.0 Chloride 108 [...] Egfr 74.9 >60 3 Lipid Profile 01/31/2019 [facility] Triglycerides 184 mg/dL 4 (Trig/Chol/HDL) [address] [place] [address] [phone] Cholesterol 142 mg/dL 5 HDL Cholesterol 39.3 mg/dL 6 LDL Cholesterol 66 mg/dL 7 CBC Auto 12/17/2018 [facility] White Blood 8.9 10^3/uL Normal 3.5-10.[address] [place] [address] [phone] Red Blood Count 4.70 10^6/uL Normal 4.18-5.48 [...] High: >189 Procedures Date Code Description Status 04/22/2019 14604 ECHO Stress Test Incl Perf Contiuous ekg Monitoring W/Phys Completed Superv 04/05/2019 14118 Diffusing Capacity Completed 04/05/2019 42334 Plethysmography Determination Lung Volumes & Per Airway Completed Resist 04/05/2019 32852 Pulmonary Function><Bronchodil Completed 02/22/2019 82257 EKG Tracing & Interpretation Completed 12/26/2018 54235 Treadmill Interp/Report Only Completed 12/26/2018 65697 Stress Test Supervsn W/Out I/R Completed 12/17/2018 37338 EKG Tracing & Interpretation Completed 11/07/2018 58723 EKG Tracing & Interpretation Completed 11/02/2018 83129 EKG, Interpretation Only Completed 11/01/2018 80830 EKG, Interpretation Only Completed 10/31/2018 22739 Cath PLMT&NJX L Ventriculog Img S&I Completed 10/31/2018 17853 ECHO Transthorasic Realtime 2D W Doppler & Color Flow Hosp Completed 10/31/2018 58788 EKG, Interpretation Only Completed 10/31/2018 55126 Revascularization Acute Total/Subtotal Occlusion Completed Medical Devices Description No Information Available Encounters Type Date Location Provider Dx Diagnosis Office Visit 04/08/2019 [facility] Elyse Nakul, R06.02 Shortness of 10:00a [facility] carmona Shank Piece Tacker R91.8 Other nonspecific abnormal finding of lung field Z87.891 Personal history of nicotine dependence Office Visit 02/22/2019 Brionna Rand E78.5 Hyperlipidemia, 11:00a [facility] Parmar unspecified Shank Piece Tacker I10 Essential (primary) hypertension I25.10 Athscl heart disease of [place] coronary artery w/o ang pctrs R07.9 Chest pain, unspecified Office Visit 01/17/2019 3:00p [facility] Keyona Parmar, I25.10 Athscl heart [employer] disease of [place] coronary artery w/o ang pctrs I10 Essential (primary) hypertension E78.5 Hyperlipidemia, unspecified Z72.0 Tobacco use Office Visit 12/17/2018 3:30p [facility] Keyona Parmar, N18.3 Chronic kidney [employer] disease, stage 3 (moderate) I25.10 Athscl heart disease of [place] coronary artery w/o ang pctrs E78.00 Pure hypercholesterolemia, unspecified I10 Essential (primary) hypertension R53.83 Other fatigue Office Visit 11/15/2018 3:20p [facility] Charles Waller I21.4 Non-St elevation Of Shank Piece Tacker Cesia Menjivar (Nstemi) myocardial infarction N18.3 Chronic kidney disease, stage 3 (moderate) I25.10 Athscl heart disease of [place] coronary artery w/o ang pctrs E78.00 Pure hypercholesterolemia, unspecified Office Visit 11/07/2018 3:20p [facility] Ned Laura I21.4 Non-St elevation Of Shank Piece Tacker AT [facility] MD Ethel, (Nstemi) FACC, FSCAI myocardial infarction N18.3 Chronic kidney disease, stage 3 (moderate) Office Visit 11/02/2018 3:52p [facility] Shahriar Martinez I21.4 Non-St elevation Of Shank Piece Tacker Oakes, DO (Nstemi) FACC myocardial infarction I25.10 Athscl heart disease of [place] coronary artery w/o ang pctrs Z98.61 Coronary angioplasty status Office Visit 11/02/2018 10:55a [facility] I21.4 Non-St elevation Assoc,pc Shortle, [employer] (Nstemi) Hospitalists myocardial infarction I10 Essential (primary) hypertension Z72.0 Tobacco use R55 Syncope and collapse H53.9 Unspecified visual disturbance Z86.73 Prsnl hx of TIA (TIA), and cereb infrc w/o resid deficits Office Visit 11/01/2018 4:48p [facility] Shahriar Martinez I21.4 Non-St elevation Of Shank Piece Tacker Oakes, DO (Nstemi) FACC myocardial infarction I25.10 Athscl heart disease of [place] coronary artery w/o ang pctrs Z98.61 Coronary angioplasty status Office Visit 11/01/2018 10:54a [facility] I21.4 Non-St elevation Assoc,pc Billie, [employer] (Nstemi) Hospitalists myocardial infarction R07.9 Chest pain, unspecified R79.89 Other specified abnormal findings of blood chemistry I10 Essential (primary) hypertension Z72.0 Tobacco use R55 Syncope and collapse Z86.73 Prsnl hx of TIA (TIA), and cereb infrc w/o resid deficits Office Visit 10/31/2018 7:00a [facility] Tam Jewell, R51 Headache M.D. I10 Essential (primary) hypertension Z86.73 Prsnl hx of TIA (TIA), and cereb infrc w/o resid deficits Office Visit 10/31/2018 11:55a [facility] Keyona Parmar, I20.0 Unstable angina [employer] R79.89 Other specified abnormal findings of blood chemistry Z86.73 Prsnl hx of TIA (TIA), and cereb infrc w/o resid deficits I10 Essential (primary) hypertension I21.4 Non-St elevation (Nstemi) myocardial infarction Office Visit 10/31/2018 10:54a [facility] Marge Michelle, R07.9 Chest pain, Assoc,pc [employer] unspecified Hospitalists I10 Essential (primary) hypertension Assessments Date Code Description Provider 04/30/2019 M54.12 Radiculopathy, cervical region Smooth Jewell M.D. 04/30/2019 G54.0 Brachial plexus disorders Smooth Jewell M.D. 04/22/2019 R06.02 Shortness of breath Ica ECHO Schedule 04/22/2019 R07.9 Chest pain, unspecified Ica ECHO Schedule 04/22/2019 E78.5 Hyperlipidemia, unspecified Ica ECHO Schedule 04/22/2019 I25.10 Atherosclerotic heart disease of [place] Ica ECHO Schedule coronary artery without angina pectoris 04/08/2019 R06.02 Shortness of breath Elyse Mota MD 04/08/2019 R91.8 Other nonspecific abnormal finding of Elyse Mota MD lung field 04/08/2019 Z87.891 Personal history of nicotine dependence Elyse Mota MD 04/05/2019 R07.9 Chest pain, unspecified Elyse Mota MD 02/22/2019 R07.9 Chest pain, unspecified Charles Menjivar M.D. 02/22/2019 E78.5 Hyperlipidemia, unspecified Keyona Thuman, [employer] 02/22/2019 R06.02 Shortness of breath Charles Menjivar M.D. 02/22/2019 I10 Essential (primary) hypertension Keyona Thuman, [employer] 02/22/2019 I25.10 Atherosclerotic heart disease of [place] [facility], [employer] coronary artery without angina pectoris 02/22/2019 R07.9 Chest pain, unspecified Keyona Thuman, [employer] 01/17/2019 I25.10 Atherosclerotic heart disease of [place] Keyona Parmar, [employer] coronary artery without angina pectoris 01/17/2019 I10 Essential (primary) hypertension [facility] Thuman, [employer] 01/17/2019 E78.5 Hyperlipidemia, unspecified [facility] Thuman, [employer] 01/17/2019 Z72.0 [facility] [employer] 12/26/2018 I25.10 Atherosclerotic heart disease of [place] Monique Ellis M.D. coronary artery without angina pectoris 12/17/2018 R94.31 Abnormal electrocardiogram [ECG] [EKG] Charles Menjivar M.D. 12/17/2018 N18.3 Chronic kidney disease, stage 3 [facility] Thuman, [employer] (moderate) 12/17/2018 I25.10 Atherosclerotic heart disease of [place] [facility], [employer] coronary artery without angina pectoris 12/17/2018 E78.00 Hypercholesterolemia [facility] Thuman, [employer] 12/17/2018 I10 Essential (primary) hypertension [facility] Thuman, [employer] 12/17/2018 R53.83 Other fatigue [facility] Thuman, [employer] 11/15/2018 I21.4 Non-St elevation (Nstemi) myocardial Charles Menjivar M.D. infarction 11/15/2018 N18.3 Chronic kidney disease, stage 3 Charles Menjivar M.D. (moderate) 11/15/2018 I25.10 Atherosclerotic heart disease of [place] Charles Menjivar M.D. coronary artery without angina pectoris 11/15/2018 E78.00 Hypercholesterolemia Charles Menjivar M.D. 11/07/2018 I21.4 Non-St elevation (Nstemi) myocardial Ned Davenport MD, [facility], infarction FSCAI 11/07/2018 N18.3 Chronic kidney disease, stage 3 Ned Davenport MD, [facility], (moderate) FSCAI 11/02/2018 R00.1 Bradycardia, unspecified Shahriar Oakes, DO FACC 11/02/2018 I21.4 Non-St elevation (Nstemi) myocardial Shahriar Oakes, DO FACC infarction 11/02/2018 I21.4 Non-St elevation (Nstemi) myocardial Colette Shortle, [employer] infarction 11/02/2018 I25.10 Atherosclerotic heart disease of [place] [facility]riar Oakes, [facility] coronary artery without angina pectoris 11/02/2018 I10 Essential (primary) hypertension Colette Shortle, [employer] 11/02/2018 Z98.61 Coronary angioplasty status Shahriar Oakes, DO FACC 11/02/2018 Z72.0 Tobacco use Colette Shortle, [employer] 11/02/2018 R55 Syncope and collapse Colette Shortle, [employer] 11/02/2018 H53.9 Unspecified visual disturbance Colette Shortle, [employer] 11/02/2018 Z86.73 Personal history of transient ischemic Colette Shortle, [employer] attack (TIA), and cerebral infarction without residual deficits 11/01/2018 R00.1 Bradycardia, unspecified Charles Menjivar M.D. 11/01/2018 I21.4 Non-St elevation (Nstemi) myocardial Shahriar Oakes, DO FACC infarction 11/01/2018 I25.10 Atherosclerotic heart disease of [place] Shahriar Oakes, DO [facility] coronary artery without angina pectoris 11/01/2018 Z98.61 Coronary angioplasty status Shahriar Oakes, DO FACC 11/01/2018 I21.4 Non-St elevation (Nstemi) myocardial Colette Shortle, [employer] infarction 11/01/2018 R07.9 Chest pain, unspecified Colette Shortle, [employer] 11/01/2018 R79.89 Other specified abnormal findings of Colette Shortle, [employer] blood chemistry 11/01/2018 I10 Essential (primary) hypertension Colette Shortle, [employer] 11/01/2018 Z72.0 Tobacco use Colette Wise, [employer] 11/01/2018 R55 Syncope and collapse Colette Wise, [employer] 11/01/2018 Z86.73 Personal history of transient ischemic Colette Wise, [employer] attack (TIA), and cerebral infarction without residual deficits 10/31/2018 R51 Headache Tam Jewell M.D. 10/31/2018 I10 Essential (primary) hypertension Tam Jewell M.D. 10/31/2018 Z86.73 Personal history of transient ischemic Tam Jewell M.D. attack (TIA), and cerebral infarction without residual deficits 10/31/2018 R94.31 Abnormal electrocardiogram [ECG] [EKG] Charles Menjivar M.D. 10/31/2018 R07.9 Chest pain, unspecified Marge Michelle, [employer] 10/31/2018 I21.4 Non-St elevation (Nstemi) myocardial Dov Nathan M.D., [facility], infarction [facility] 10/31/2018 I10 Essential (primary) hypertension Marge Michelle, [employer] 10/31/2018 I25.10 Atherosclerotic heart disease of [place] Dov Nathan M.D. , [facility], coronary artery without angina pectoris [facility] 10/31/2018 R94.31 Abnormal electrocardiogram [ECG] [EKG] Charles Menjivar M.D. 10/31/2018 I20.0 Unstable angina Keyona Agata, [employer] 10/31/2018 R79.89 Other specified abnormal findings of Keyona Parmar NP blood chemistry 10/31/2018 Z86.73 Personal history of transient ischemic Keyona Parmar [employer] attack (TIA), and cerebral infarction without residual deficits 10/31/2018 I10 Essential (primary) hypertension Keyona Parmar, [employer] 10/31/2018 I21.4 Non-St elevation (Nstemi) myocardial Keyona Parmar NP infarction Plan of Treatment Future Appointment(s):06/11/2019 1:00 pm - Smooth Jewell M.D. at [facility] at [id number]/31/2020 9:15 am - Elyse Mota MD at [facility]04/30/2019 - Smooth Jewell M.D.M54.12 Radiculopathy, cervical fnrybtP34.0 Brachial plexus disordersFollow up:6 weeksRecommendations: Stretch daily, more often if possible, especially with moist heat. Functional Status Description No Information Available Mental Status Description No Information Available Referrals Refer to Reason for Referral Status Appt Date Elyse Mota MD Sent [address] [place] [address] [phone] Closed [facility] [address] [place] [address] [phone]
--- OUTSIDE RECORDS SUMMARY | 2019-06-29 14:17 | XMS REPORT | Continuity of Care Document ---
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 Onset: 12/23/2014 Encounter for other orthopedic Smooth Jewell M.D. Onset: 03/11/2015 aftercare Late effect of sprain AND/OR strain Smooth Jewell M.D. Onset: 08/02/2016 without tendon injury Acute subendocardial infarction Ned Davenport MD, [facility], Onset: 11/07/2018 [facility] Chronic kidney disease stage 3 Ned Davenport MD, [facility], Onset: 11/07/2018 [facility] Social History Type Date Description Comments Sex Unknown Tobacco Use Start: Unknown End: Former Cigarette Smoker 30 years 2 Packs Daily Smoking Status Reviewed: 05/03/19 Former Cigarette Smoker 30 years 2 Packs [...] 90tabs Keyona Parmar, 12/18/2018 20mg every day [employer] Tablets Blood Pressure Monitor 1 machine with 1 1units I10 [facility], 2018 Deluxe/Automatic blood pressure [employer] cuff adult Device regular size Losartan Potassium 1 by mouth every 90tabs [facility], 11/06/2018 25mg day [employer] Tablets Plavix 1 by mouth every 90tabs [facility], 11/06/2018 75mg Tablets day [employer] Nitroglycerin 1 sl q5mins x3 as 25tabs Ned Laura 11/06/2018 0.4mg needed for chest MD Ethel, Tablets Sub pain FAC, [facility] Aspirin 81 1 by mouth every [...] 40mg Tablets Isosorbide 1 by mouth 30tabs [facility], [employer] 03/21/2019 - Mononitrate every day 04/22/2019 20mg Tablets Rosuvastatin Calcium 1 by mouth 90tabs E78.00 Keyona [facility], [employer] 2018 - every day 12/17/2018 20mg Tablets before bedtime. Lipitor 2 tabs by mouth 30tabs E78.00 Charles Waller 11/15/2018 - 20mg Tablets every night Cesia Menjivar 12/17/2018 Lipitor 1 by mouth Ned Davenport, 11/06/2018 - 80mg Tablets every day. Pt , [facility], [facility] 11/15/2018 takes at 2100 Medications Administered in Office Medication SIG Qnty Indications Ordering Provider Date Records Fee Monique Ellis, 03/11/2019 Injection Cesia Depomedrol 40MG DAVID Onofre 06/02/2015 Injection Depomedrol 40MG Smooth Jewell M.D. 04/23/2015 Injection Celestone 3 mg and 3mg DAVID Onofre 09/30/2014 Injection Immunizations Description No Information Available Vital Signs Date Vital Result Comment 05/03/2019 8:36am Height 64 inches 5'4" Weight 195.00 lb Heart Rate 59 /min BP Systolic 118 mmHg BP Diastolic 70 mmHg O2 % BldC Oximetry 97 % BMI (Body Mass Index) 33.5 kg/m2 04/30/2019 2:14pm Height 64 inches 5'4" Weight 196.00 lb Heart Rate 53 /min BP Systolic Sitting 120 mmHg BP Diastolic Sitting 80 mmHg Body Temperature 97.4 F BMI (Body Mass Index) 33.6 kg/m2 Results Test Acquired Date Facility Test Result H/L Range Note Lipid Panel - 01/31/2019 [facility] Creatine 42 U/L Normal 10- 223 1, [address] Kinase(CK) [place] [address] [phone] Comp Metabolic 01/31/2019 [facility] Sodium 141 mmol/L Normal 135-[address] [place], [place] [id number] [phone] Potassium 4.1 mmol/L Normal 3.5-5.0 Chloride 108 [...] Egfr 74.9 >60 3 Lipid Profile 01/31/2019 [facility] Triglycerides 184 mg/dL 4 (Trig/Chol/HDL) [address] [place], [place] [id number] [phone] Cholesterol 142 mg/dL 5 HDL Cholesterol 39.3 mg/dL 6 LDL Cholesterol 66 mg/dL 7 CBC Auto 12/17/2018 [facility] White Blood 8.9 10^3/uL Normal 3.5-10.[address] [place] [address] [phone] Red Blood Count 4.70 10^6/uL Normal 4.18-5.48 [...] >189 Procedures Date Code Description Status 04/22/2019 21859 ECHO Stress Test Incl Perf Contiuous ekg Monitoring W/Phys Completed Superv 04/22/2019 64478 ECHO Stress Test Incl Perf Contiuous ekg Monitoring W/Phys Completed Superv 04/05/2019 95246 Diffusing Capacity Completed 04/05/2019 53795 Plethysmography Determination Lung Volumes & Per Airway Completed Resist 04/05/2019 25736 Pulmonary Function><Bronchodil Completed 02/22/2019 65654 EKG Tracing & Interpretation Completed 12/26/2018 51368 Treadmill Interp/Report Only Completed 12/26/2018 73824 Stress Test Supervsn W/Out I/R Completed 12/17/2018 17129 EKG Tracing & Interpretation Completed 11/07/2018 00257 EKG Tracing & Interpretation Completed 11/02/2018 47868 EKG, Interpretation Only Completed 11/01/2018 35640 EKG, Interpretation Only Completed Medical Devices Description No Information Available Encounters Type Date Location Provider Dx Diagnosis Office Visit 04/08/2019 Pul[facility]ology And Elyse Nakul, R06.02 Shortness of 10:00a [facility] Services [facility] carmona Consulting Property Manager R91.8 Other nonspecific abnormal finding of lung field Z87.891 Personal history of nicotine dependence Office Visit 02/22/2019 [place] Keyona E78.5 Hyperlipidemia, 11:00a [facility] [place], [employer] unspecified Consulting Property Manager I10 Essential (primary) hypertension 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 R07.9 Chest pain, unspecified Office Visit 01/17/2019 3:00p [facility] Keyona Thuman, I25.10 Athscl heart [employer] disease of black[place] coronary artery w/o ang pctrs I10 Essential (primary) hypertension E78.5 Hyperlipidemia, unspecified Z72.0 Tobacco use Office Visit 12/17/2018 3:30p [facility] Keyona Pamrar, N18.3 Chronic kidney [employer] disease, stage 3 (moderate) 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 E78.00 Pure hypercholesterolemia, unspecified I10 Essential (primary) hypertension R53.83 Other fatigue Office Visit 11/15/2018 3:20p [facility] Charles Waller I21.4 Non-St elevation Of Consulting Property Manager Cesia Mejnivar (Nstemi) myocardial infarction N18.3 Chronic kidney disease, stage 3 (moderate) 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 E78.00 Pure hypercholesterolemia, unspecified Office Visit 11/07/2018 3:20p [facility] Ned Laura I21.4 Non-St elevation Of Consulting Property Manager AT [facility] MD Ethel, (Nstemi) FACC, FSCAI myocardial infarction N18.3 Chronic kidney disease, stage 3 (moderate) Office Visit 11/02/2018 3:52p [facility] Shahriar Martinez I21.4 Non-St elevation Of Consulting Property Manager Oakes, DO (Nstemi) FACC myocardial infarction 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 Z98.61 Coronary angioplasty status Office Visit 11/02/2018 10:55a [facility] I21.4 Non-St elevation Assoc,pc Shortle, [employer] (Nstemi) Hospitalists myocardial infarction I10 Essential (primary) hypertension Z72.0 Tobacco use R55 Syncope and collapse H53.9 Unspecified visual disturbance Z86.73 Prsnl hx of TIA (TIA), and cereb infrc w/o resid deficits Office Visit 11/01/2018 4:48p [facility] Shahriar SMoi I21.4 Non-St elevation Of Consulting Property Manager Oakes, DO (Nstemi) FACC myocardial infarction 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 Z98.61 Coronary angioplasty status Office Visit 11/01/2018 10:54a [facility] I21.4 Non-St elevation Assoc,pc Shortle, [employer] (Nstemi) Hospitalists myocardial infarction R07.9 Chest pain, unspecified R79.89 Other specified abnormal findings of blood chemistry I10 Essential (primary) hypertension Z72.0 Tobacco use R55 Syncope and collapse Z86.73 Prsnl hx of TIA (TIA), and cereb infrc w/o resid deficits Assessments Date Code Description Provider 05/03/2019 R06.02 Shortness of breath Elyse Mota MD 05/03/2019 R06.83 Snoring Elyse oMta MD 04/30/2019 M54.12 Radiculopathy, cervical region Smooth [...] M.D. 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 Keyona Parmar NP coronary artery without angina pectoris 02/22/2019 R07.9 Chest pain, unspecified Keyona Parmar [employer] 01/17/2019 I25.10 Atherosclerotic heart disease of blackfeet Keyona Parmar [employer] coronary artery without angina pectoris 01/17/2019 I10 Essential (primary) hypertension Keyona Parmar NP 01/17/2019 E78.5 Hyperlipidemia, unspecified [facility], [employer] 01/17/2019 Z72.0 Tobacco use [facility], [employer] 12/26/2018 I25.10 Atherosclerotic heart disease of blackfeet Monique Ellis M.D. coronary artery without angina pectoris 12/17/2018 R94.31 Abnormal electrocardiogram [ECG] [EKG] Charles Menjivar M.D. 12/17/2018 N18.3 Chronic kidney disease, stage 3 [facility], [employer] (moderate) 12/17/2018 I25.10 Atherosclerotic heart disease of blackfeet [facility], [employer] coronary artery without angina pectoris 12/17/2018 E78.00 Hypercholesterolemia [facility], [employer] 12/17/2018 I10 Essential (primary) hypertension [facility], [employer] 12/17/2018 R53.83 Other fatigue [facility], [employer] 11/15/2018 I21.4 Non-St elevation (Nstemi) myocardial Charles Menjivar M.D. infarction 11/15/2018 N18.3 Chronic kidney disease, stage 3 Charles Menjivar M.D. (moderate) 11/15/2018 I25.10 Atherosclerotic heart disease of blackfeet Charles Menjivar M.D. coronary artery without angina pectoris 11/15/2018 E78.00 Hypercholesterolemia Charles Menjivar M.D. 11/07/2018 I21.4 Non-St elevation (Nstemi) myocardial Ned Davenport MD, [facility], infarction FSCAI 11/07/2018 N18.3 Chronic kidney disease, stage 3 Ned Davenport MD, FACC, (moderate) FSCAI 11/02/2018 R00.1 Bradycardia, unspecified Shahriar Oakes, DO FACC 11/02/2018 I21.4 Non-St elevation (Nstemi) myocardial Shahriar Oakes, DO FACC infarction 11/02/2018 I21.4 Non-St elevation (Nstemi) myocardial [place], [employer] infarction 11/02/2018 I25.10 Atherosclerotic heart disease of blackfeet Shahriar Oakes, DO FACC coronary artery without angina pectoris 11/02/2018 I10 Essential (primary) hypertension [place] Shortle, [employer] 11/02/2018 Z98.61 Coronary angioplasty status Shahriar Oakes, DO FACC 11/02/2018 Z72.0 Tobacco use [place]le, [employer] 11/02/2018 R55 Syncope and collapse [place] Shortle, [employer] 11/02/2018 H53.9 Unspecified visual disturbance [place] Shortle, [employer] 11/02/2018 Z86.73 Personal history of transient ischemic [place] Shortle, [employer] attack (TIA), and cerebral infarction without residual deficits 11/01/2018 R00.1 Bradycardia, unspecified Charles Menjivar M.D. 11/01/2018 I21.4 Non-St elevation (Nstemi) myocardial Shahriar Oakes, DO [facility] infarction 11/01/2018 I25.10 Atherosclerotic heart disease of blackfeet Shahriar Oakes, DO [facility] coronary artery without angina pectoris 11/01/2018 Z98.61 Coronary angioplasty status Shahriar Oakes, DO FACC 11/01/2018 I21.4 Non-St elevation (Nstemi) myocardial [place] Shortle, [employer] infarction 11/01/2018 R07.9 Chest pain, unspecified [place] Shortle, [employer] 11/01/2018 R79.89 Other specified abnormal findings of [place] Shortle, [employer] blood chemistry 11/01/2018 I10 Essential (primary) hypertension [place] Shortle, [employer] 11/01/2018 Z72.0 Tobacco use [place]le, [employer] 11/01/2018 R55 Syncope and collapse [place] Shortle, [employer] 11/01/2018 Z86.73 Personal history of transient ischemic [place] Shortle, [employer] attack (TIA), and cerebral infarction without residual deficits Plan of Treatment Future Appointment(s):05/31/2019 11:00 am - Khalida Stanley NP at [facility]06/11/2019 1:00 pm - Smooth Jewell M.D. at [facility] at [id number]/31/2020 - Elyse Mota, MDR06.02 Shortness of breathFollow up:2 fzdoqE51.83 SnoringNew Orders:Home Sleep Testing , Ordered: 05/03/19 Functional Status Description No Information Available Mental Status Description No Information Available Referrals Refer to Reason for Referral Status Appt Date Elyse Mota MD Sent [address] [place] [address] [phone] Closed [facility] [address] [place] [address] [phone]
--- OUTSIDE RECORDS SUMMARY | 2019-06-29 14:17 | XMS REPORT | Continuity of Care Document ---
:1965 External Reference #:[id number] Author Name Charles Menjivar M.D. 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 Onset: 12/23/2014 Encounter for other orthopedic Smooth Jewell M.D. Onset: 03/11/2015 aftercare Late effect of sprain AND/OR strain Smooth Jewell M.D. Onset: 08/02/2016 without tendon injury Acute subendocardial infarction Ned Davenport MD, [facility], Onset: 11/07/2018 [facility] Chronic kidney disease stage 3 Ned Davenport MD, [facility], Onset: 11/07/2018 [facility] Social History Type Date Description Comments Sex Unknown Tobacco Use Start: Unknown End: Former Cigarette Smoker 30 years 2 Packs Daily Smoking Status Reviewed: 05/07/19 Former Cigarette Smoker 30 years 2 Packs [...] I10 Keyona Parmar, 2018 Deluxe/Automatic blood pressure JANITORIAL SERVICES SUPERVISOR cuff adult Device regular size Plavix 1 by mouth every 90tabs Keyona Parmar, 11/06/2018 75mg Tablets day JANITORIAL SERVICES SUPERVISOR Nitroglycerin 1 sl q5mins x3 as 25tabs Ned Laura 11/06/2018 0.4mg needed for chest MD Ethel, Tablets Sub pain [facility], [facility] Aspirin 81 1 by mouth every Unknown 81mg Tablets day DR Metoprolol Succinate 1/2 by mouth Unknown ER every other day 25mg Tablets ER 24HR Metformin HCL 1 by mouth twice Unknown [...] Calcium 1 by mouth 90tabs E78.00 Keyona Parmar, N[place]OL[place]S 2018 - every day 12/17/2018 20mg Tablets before bedtime. Lipitor 2 tabs by mouth 30tabs E78.00 Charles Waller 11/15/2018 - 20mg Tablets every night Cesia Menjivar 12/17/2018 Losartan Potassium 1 by mouth 90tabs Keyona Parmar NP 11/06/2018 - 25mg every day 05/07/2019 Tablets Lipitor 1 by mouth Ned Davenport, 11/06/2018 - 80mg Tablets every day. Pt , FACJaqueline, [facility] 11/15/2018 takes at 2100 Medications Administered in Office Medication SIG Qnty Indications Ordering Provider Date Records Fee Monique Ellis, 03/11/2019 Injection M.D. Depomedrol 40MG DAVID Onofre 06/02/2015 Injection Depomedrol 40MG Smooth Jewell M.D. 04/23/2015 Injection Celestone 3 mg and 3mg DAVID Onofre 09/30/2014 Injection Immunizations Description No Information Available Vital Signs Date Vital Result Comment 05/07/2019 8:35am Height 64 inches 5'4" Weight 197.38 lb with shoes Heart Rate 54 /min left radial BP Systolic Sitting 134 mmHg Lue, reg cuff BP Diastolic Sitting 82 mmHg Lue, reg cuff BP Systolic Standing 130 mmHg Lue, reg cuff BP Diastolic Standing 78 mmHg Lue, reg cuff BMI (Body Mass Index) 33.9 kg/m2 Ejection Fraction 55%-60% stress test 04/22/19 05/03/2019 8:36am Height 64 inches 5'4" Weight 195.00 lb Heart Rate 59 /min BP Systolic 118 mmHg BP Diastolic 70 mmHg O2 % BldC Oximetry 97 % BMI (Body Mass Index) 33.5 kg/m2 Results Test Acquired Date Facility Test Result H/L Range Note Lipid Panel - 01/31/2019 [facility] Creatine 42 U/L Normal 10- 223 1, [address] Kinase(CK) [place] [address] [phone] Comp Metabolic 01/31/2019 [facility] Sodium 141 mmol/L Normal 135-[address] [place] [address] [phone] Potassium 4.1 mmol/L Normal 3.5-5.0 Chloride 108 [...] Egfr 74.9 >60 3 Lipid Profile 01/31/2019 [facility] Triglycerides 184 mg/dL 4 (Trig/Chol/HDL) [address] [place] [address] [phone] Cholesterol 142 mg/dL 5 HDL Cholesterol 39.3 mg/dL 6 LDL Cholesterol 66 mg/dL 7 CBC Auto 12/17/2018 [facility] White Blood 8.9 10^3/uL Normal 3.5-10.[address] [place] [address] [phone] Red Blood Count 4.70 10^6/uL Normal 4.18-5.48 [...] >189 Procedures Date Code Description Status 05/07/2019 93191 EKG Tracing & Interpretation Completed 04/22/2019 32848 ECHO Stress Test Incl Perf Contiuous ekg Monitoring W/Phys Completed Superv 04/22/2019 56184 ECHO Stress Test Incl Perf Contiuous ekg Monitoring W/Phys Completed Superv 04/05/2019 38425 Diffusing Capacity Completed 04/05/2019 94032 Plethysmography Determination Lung Volumes & Per Airway Completed Resist 04/05/2019 97225 Pulmonary Function><Bronchodil Completed 02/22/2019 01053 EKG Tracing & Interpretation Completed 12/26/2018 63692 Treadmill Interp/Report Only Completed 12/26/2018 74677 Stress Test Supervsn W/Out I/R Completed 12/17/2018 72341 EKG Tracing & Interpretation Completed 11/07/2018 07401 EKG Tracing & Interpretation Completed Medical Devices Description No Information Available Encounters Type Date Location Provider Dx Diagnosis Office Visit 04/08/2019 Pulmonology And Elyse Nakul, R06.02 Shortness of 10:00a [facility] Services Of MD carmona Senior Benefits Analyst R91.8 Other nonspecific abnormal finding of lung field Z87.891 Personal history of nicotine dependence Office Visit 02/22/2019 Brionna Rand E78.5 Hyperlipidemia, 11:00a [facility] [place] Parmar unspecified Senior Benefits Analyst I10 Essential (primary) hypertension I25.10 Athscl heart disease of [place] coronary artery w/o ang pctrs R07.9 Chest pain, unspecified Office Visit 01/17/2019 3:00p [facility], I25.10 Athscl heart JANITORIAL SERVICES SUPERVISOR disease of [place] coronary artery w/o ang pctrs I10 Essential (primary) hypertension E78.5 Hyperlipidemia, unspecified Z72.0 Tobacco use Office Visit 12/17/2018 3:30p [facility], N18.3 Chronic kidney JANITORIAL SERVICES SUPERVISOR disease, stage 3 (moderate) I25.10 Athscl heart disease of [place] coronary artery w/o ang pctrs E78.00 Pure hypercholesterolemia, unspecified I10 Essential (primary) hypertension R53.83 Other fatigue Office Visit 11/15/2018 3:20p [facility] Charles Waller I21.4 Non-St elevation Of Senior Benefits Analyst Cesia Menjivar (Nstemi) myocardial infarction N18.3 Chronic kidney disease, stage 3 (moderate) I25.10 Athscl heart disease of [place] coronary artery w/o ang pctrs E78.00 Pure hypercholesterolemia, unspecified Office Visit 11/07/2018 3:20p [facility] Ned Laura I21.4 Non-St elevation Of Senior Benefits Analyst AT [facility] MD Ethel, (Nstemi) [facility] myocardial infarction N18.3 Chronic kidney disease, stage 3 (moderate) Assessments Date Code Description Provider 05/07/2019 E78.5 Hyperlipidemia, unspecified Charles Menjivar M.D. [...] Schedule 04/22/2019 I25.10 Atherosclerotic heart disease of gamb[place] Ica ECHO Schedule coronary artery without angina pectoris 04/08/2019 R06.02 Shortness of breath Elyse Mota MD 04/08/2019 R91.8 Other nonspecific abnormal finding of Elyse Mota MD lung field 04/08/2019 Z87.891 Personal history of nicotine dependence Elyse Mota MD 04/05/2019 R07.9 Chest pain, unspecified Elyse Mota MD 02/22/2019 R07.9 Chest pain, unspecified Charles Menjivar M.D. 02/22/2019 E78.5 Hyperlipidemia, unspecified Keyona Thuman, JANITORIAL SERVICES SUPERVISOR 02/22/2019 R06.02 Shortness of breath Charles Menjivar M.D. 02/22/2019 I10 Essential (primary) hypertension Keyona Thuman, JANITORIAL SERVICES SUPERVISOR 02/22/2019 I25.10 Atherosclerotic heart disease of [place] Keyona Parmar, JANITORIAL SERVICES SUPERVISOR coronary artery without angina pectoris 02/22/2019 R07.9 Chest pain, unspecified Keyona Thuman, JANITORIAL SERVICES SUPERVISOR 01/17/2019 I25.10 Atherosclerotic heart disease of [place] Keyona Parmar, JANITORIAL SERVICES SUPERVISOR coronary artery without angina pectoris 01/17/2019 I10 Essential (primary) hypertension Keyona Thuman, JANITORIAL SERVICES SUPERVISOR 01/17/2019 E78.5 Hyperlipidemia, unspecified Keyona Thuman, JANITORIAL SERVICES SUPERVISOR 01/17/2019 Z72.0 Tobacco use Keyona Thuman, JANITORIAL SERVICES SUPERVISOR 12/26/2018 I25.10 Atherosclerotic heart disease of [place] Monique Ellis M.D. coronary artery without angina pectoris 12/17/2018 R94.31 Abnormal electrocardiogram [ECG] [EKG] Charles Menjivar M.D. 12/17/2018 N18.3 Chronic kidney disease, stage 3 Keyona Thjatinder, NICOLÁS (moderate) 12/17/2018 I25.10 Atherosclerotic heart disease of [place] Keyona Parmar, JANITORIAL SERVICES SUPERVISOR coronary artery without angina pectoris 12/17/2018 E78.00 Hypercholesterolemia Keyona Parmar, JANITORIAL SERVICES SUPERVISOR 12/17/2018 I10 Essential (primary) hypertension Keyona Parmar, JANITORIAL SERVICES SUPERVISOR 12/17/2018 R53.83 Other fatigue Keyona Parmar, JANITORIAL SERVICES SUPERVISOR 11/15/2018 I21.4 Non-St elevation (Nstemi) myocardial Charles Menjivar M.D. infarction 11/15/2018 N18.3 Chronic kidney disease, stage 3 Charles Menjivar M.D. (moderate) 11/15/2018 I25.10 Atherosclerotic heart disease of [place] Charles Menjivar M.D. coronary artery without angina pectoris 11/15/2018 E78.00 Hypercholesterolemia Charles Menjivar M.D. 11/07/2018 I21.4 Non-St elevation (Nstemi) myocardial Ned Davenport MD, FACC, infarction [facility]AI 11/07/2018 N18.3 Chronic kidney disease, stage 3 Ned Davenport MD, FACC, (moderate) FSCAI Plan of Treatment Future Appointment(s):09/04/2019 11:20 am - Charles Menjivar M.D. at [facility]05/16/2019 2:00 pm - Keyona Parmar NP at [facility]2019 9:00 am - [place] ECHO Schedule at [facility]05/31/2019 11:00 am - Khalida Stanley NP at [facility]06/11/2019 1:00 pm - Smooth Jewell M.D. at [facility] at Pxeazjqi49/04/2020 - Charles Menjivar M.D.E78.5 Hyperlipidemia, unspecifiedFollow up:please obtain labs from 04/2019 ov JANITORIAL SERVICES SUPERVISOR within 1-2 weeks ov JFM 3 mR06.02 Shortness of breathNew Orders:Echocardiogram, Scheduled: 05/30/19M79.10 Myalgia, unspecified siteR01.1 Cardiac murmur, [id number] Essential (primary) hypertensionFollow up:bring home bp unit to next visit Functional Status Description No Information Available Mental Status Description No Information Available Referrals Refer to Reason for Referral Status Appt Date Elyse Mota MD Sent [address] [place] [address] [phone] Closed [facility] [address] [place] [address] [phone]
[2019-06-29 14:39] LABS: Urine Appearance Clear; Urine Bilirubin Negative (Negative); Urine Blood Negative (Negative); Urine Color Colorless; Urine Glucose Negative (Negative); Urine Ketones Negative (Negative); Urine Nitrite Negative (Negative); Urine Protein Negative (Negative); Urine Specific Gravity 1.002 (1.010-1.030); Urine Urobilinogen Negative (Negative)
[2019-06-29] MEDS ORDERED: Ondansetron INJ* 2 MG/ML VIAL IV PRN (14:54)
[2019-06-29] MEDS ORDERED: Nitroglycerin TAB 0.4 MG* 0.4 MG TAB SL PRN (14:57)
[2019-06-29] MEDS ORDERED: Enoxaparin(*) 40 MG/0.4 ML SYR SUBCUT SCH (15:00)
[2019-06-29] MEDS ORDERED: Acetaminophen TAB* 325 MG PO ONE (15:17)
[2019-06-29] MEDS ORDERED: Dextrose 50% Syringe 50 ML* 25 GM/50 ML SYRINGE IV PUSH PRN (15:34)
--- NOTE | 2019-06-29 17:41 | HP ---
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 George.* (DICTATED BY LILI CAMACHO NP) OTHER PROVIDER: Dr. Jewell. CHIEF COMPLAINT: Stroke symptoms. HISTORY OF PRESENT ILLNESS: This is a 54-year-old male with a past medical history significant for left-sided CVA in 2011, NSTEMI with stent placement in October of 2018, and GERD, who came to the emergency room on 06/29/19 with concerns for stroke-like symptoms. Starting around noon this afternoon, he reported that initially he could not remember the names of his family members around him, and then could not understand their speech, and then he quickly progressed to where he was unable to speak. He stated that these symptoms resolved by the time he came to the emergency room. He also reports having a headache over his left eye and the left side of his head. During the episode of neurological deficit, he stated that the second and third digits to his left hand turned purple and that the fourth and fifth digits felt cold. The episode lasted around 30 minutes. His girlfriend took his blood pressure prior to him coming in and it was 147/104. Of note, he had an NSTEMI with stent placement last October, and ever since then, he has had intermittent chest pressure, but without chest pain or radiating symptoms which is worse at night, nothing seems to make it better. He has also been short of breath with exertion since then, but stated he has had no changes to that pattern. Starting a few weeks ago, he would occasionally smell sulfur, could be in his house or elsewhere in public without the presence of any matches or anything else, stated there was no specific trigger, but at the same time of the smell he would get headaches on and above his left eye with sensitivity to loud noises. He also states that he is not comfortable closing his eyes even now as he feels dizzy and like he is going to fall over. When he came to the emergency room, a brandee mckenna was called. CT scan was done. His NIH Stroke Scale at that time was 1. Dr. Jewell was consulted. He did not require tPA and hospitalists were asked to evaluate the patient for admission. PAST MEDICAL HISTORY: Hypertension; hyperlipidemia; left-sided CVA in 2011; coronary artery disease; NSTEMI; sleep apnea with CPAP, which he started using 3 weeks ago; GERD; diabetes type 2. PAST SURGICAL HISTORY: Left shoulder anchor, left elbow tendon release, umbilical hernia repair, ventral hernia repair, left circumflex artery PCI in October 2018, bilateral knee arthroscopy. HOME MEDICATIONS: 1. Lansoprazole 1 tab p.o. daily. 2. Metformin 500 mg p.o. b.i.d. 3. Rosuvastatin 20 mg p.o. q.p.m. 4. Nitroglycerin 0.4 mg sublingually q.5 minutes p.r.n. 5. Metoprolol tartrate 25 mg p.o. daily. 6. Losartan 25 mg p.o. daily. 7. Isosorbide dinitrate 20 mg p.o. daily. 8. Clopidogrel 75 mg p.o. daily. 9. Aspirin 81 mg p.o. daily. 10. Acetaminophen 650 mg p.o. q.8 hours p.r.n. ALLERGIES: HYDROCODONE, OXYCODONE, BETADINE, ATORVASTATIN, and MUSCLE RELAXERS. FAMILY HISTORY: Significant for heart disease, diabetes type 1, prostate cancer , and his mother at age 75 due to emphysema. SOCIAL HISTORY: He is a former smoker. He quit in 2019 after his heart attack. Denies any alcohol or substance use. 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 REVIEW OF SYSTEMS: A 12-point review of systems was performed, which was positive for dizziness with eyes closed, chest pressure, mild shortness of breath, headache over the left eye, but denies any fevers, chills, anorexia, edema, cough, hemoptysis, nausea, vomiting, abdominal pain, dysuria, diarrhea, constipation, or visual complaints. PHYSICAL EXAMINATION VITAL SIGNS: 98.0 Fahrenheit, 62 pulse, 23 respirations, 99% oxygen on room air , 138/93 blood pressure. HEENT: Conjunctivae pink and moist. PERRLA. EOMs intact. No partial gaze palsy. Oropharynx clear. Mucous membranes moist. NECK: Supple. RESPIRATORY: Lung sounds clear throughout bilaterally on room air. No accessory muscle use noted. CARDIAC: S1, S2 present. Heart rate regular. No murmurs, gallops, or rubs appreciated. No carotid bruits. No bilateral lower extremity edema. ABDOMEN: Large, soft, nontender, nondistended with positive bowel sounds x4. MUSCULOSKELETAL: No clubbing or cyanosis of the digits. Able to move all extremities equally. Hand grasps are equal with equal strength. NEUROLOGIC: Sensation is intact to light touch. He has good distinction. No dysarthria or dysphasia. His smile is symmetrical. Tongue is midline. No pronator drift. No leg drift. No other focal deficits appreciated. PSYCH: He is alert and oriented x4. Thought content organized. SKIN: Intact with no rashes or open areas. DIAGNOSTIC STUDIES/LAB DATA: CTA of the head and neck showed no branch occlusion, no aneurysmal dilatation of the intracranial circulation noted, and the carotid arteries and vertebral arteries demonstrate no significant stenosis , carotid or vertebral artery dissection. Brain CT without contrast showed no evidence of intracranial mass or hemorrhage. Chest x-ray showed no active cardiopulmonary disease. Pertinent lab data: Creatinine 1.23, glucose 112, lactic acid 1.2. Troponin 0.01, B natriuretic peptide 21. Triglycerides 305, cholesterol 155, LDL cholesterol 61, HDL cholesterol 33.2. ASSESSMENT AND PLAN: My impression is that this is a 54-year-old male with a past medical history significant for past cerebrovascular accident, non-ST- elevation myocardial infarction with stenting, and sleep apnea with CPAP use, who is being admitted to the hospital on 06/29/19 for rule out cerebrovascular accident versus seizure. 1. Cerebrovascular accident versus seizure rule out. Initially, he was worked up for a seizure in the emergency room. Brain CT was negative. Awaiting brain MRI. Due to the symptomatology as was described, seizures are high on the differential and EEG has been ordered. He will continue with his aspirin and Plavix therapy. He passed dysphagia screening, so will be allowed to have a consistent carb diet. Due to the lack of any gross deficits with any extremities , I do not feel the need to order PT or OT at this time. Neuro checks should be performed q.4 hours. 2. Global T-wave inversions. We will perform subsequent EKGs. I spoke with Dr. Menjivar and he feels that this is likely secondary to his neurological events as well as his hypertension in the emergency room with blood pressures being in the 170s and 180s. A transthoracic echocardiogram has been ordered. The patient is having no signs or symptoms of acute coronary syndrome at this time as well as no signs or symptoms of pericarditis or myocarditis. We will check EKG in the morning. Trop is 0.[address] there are no ST segment changes. I do not feel the need to trend his troponins at this time. 3. Diabetes type 2. He normally takes metformin at home, which I will hold during his stay and instead do fingersticks a.c. with sliding scale lispro coverage. 4. Hypertension. He stated that typically he monitors his blood pressure at home and remains below 130/90. He does not skip taking his medication. I will allow for permissive hypertension with systolic blood pressure goals of being between 140 to 180 for the next 24 hours and then restart his losartan and metoprolol tomorrow. 5. Gastroesophageal reflux disease. He may continue using pantoprazole. Has no signs or symptoms of indigestion at this time. 6. Hyperlipidemia. Continue rosuvastatin. Though his triglycerides are slightly elevated, they are not high enough to initiate gemfibrozil and instead I suggest lifestyle changes. 7. Sleep apnea. The patient states that he is willing to call his girlfriend who can bring him his CP[facility]. 8. DVT prophylaxis: At this time, I am unwilling to order anticoagulation until the MRI is resulted. Until then, he may use SCDs. 9. Code status is full code. 10. Disposition is to admit inpatient to [address] [place] [address]. 11. Condition is guarded. TIME SPENT: Time spent on the patient is about 60 minutes with 30 of that spent [id number]. LILI CAMACHO, DETECTIVE CAPTAIN [id number]/[facility] #: [id number] RON
[2019-06-29] MEDS ORDERED: CMCS: Rosuvastatin (NF) 20 MG TAB PO SCH (18:00)
[2019-06-29] MEDS: Insulin LISPRO* 1 UNITS UNIT SUBCUT SCH (18:08)
[2019-06-29] MEDS: Acetaminophen TAB* 325 MG PO PRN (21:31)
[2019-06-30] MEDS: Acetaminophen TAB* 325 MG PO PRN (05:28)
[2019-06-30 05:44] LABS: ABS Basophils 0.1 10^3/ul (0-0.2); ABS Eosinophils 0.2 10^3/ul (0-0.6); ABS Lymphocytes 1.9 10^3/ul (1.0-4.8); ABS Monocytes 0.6 10^3/ul (0-0.8); ABS Neutrophils 5.2 10^3/ul (1.5-7.7); Hematocrit 42 % (42-52); Hemoglobin 14.4 g/dL (14.0-18.0); Mean Corpuscular HGB Conc 34 g/dL (31-36); Mean Corpuscular Hemoglobin 30 pg (27-31); Mean Corpuscular Volume 89 fL (80-94); Mean Platelet Volume 9.1 fL (7.4-10.4); Platelet Count 216 10^3/uL (150-450); Red Blood Count 4.74 10^6 /uL (4.18-5.48); Red Cell Distribution Width 14 % (10-15)
[2019-06-30 06:03] LABS: BUN/Creatinine Ratio 11.7 (8-20); Calcium 9.3 mg/dL (8.6-10.3); EGFR African American 76.1 (>60); EGFR Non-African American 62.9 (>60); Potassium 3.7 mmol/L (3.5-5.0)
[2019-06-30] MEDS: Insulin LISPRO* 1 UNITS UNIT SUBCUT SCH ×2 (08:14→12:33)
[2019-06-30] MEDS ORDERED: Pantoprazole TAB * 40 MG TAB PO SCH (09:00)
[2019-06-30] MEDS ORDERED: Losartan TAB* 25 MG PO SCH (09:00)
[2019-06-30] MEDS ORDERED: Isosorbide Dinitrate TAB* 20 MG PO SCH (09:00)
[2019-06-30] MEDS ORDERED: Clopidogrel TAB* 75 MG PO SCH (09:00)
[2019-06-30] MEDS ORDERED: Metoprolol Tartrate TAB* 25 MG PO SCH ×2 (09:00→09:05)
[2019-06-30] MEDS ORDERED: Aspirin EC TAB* 81 MG TAB.EC PO SCH (09:00)
--- NOTE | 2019-06-30 11:02 | EEG ---
ELECTROENCEPHALOGRAM: DATE OF STUDY: 06/30/19 LOCATION: He is an inpatient. REFERRING PROVIDER: Lili Camacho NP. CLINICAL PROBLEM: Episode of difficulty with word finding the day prior to this recording. MEDICATIONS: Include: 1. Cozaar. 2. Isordil. 3. Plavix. 4. Aspirin. 5. Rosuvastatin. 6. Humalog insulin. 7. Lopressor. 8. Protonix. REPORT: This 19-channel EEG is remarkable for background rhythms consisting of a well-formed alpha r hythm in the occipital derivations at 9.5 cycles per second, which is symmetric. Low voltage bifront al beta rhythms are noted and are symmetric. The patient is awake and oriented. Activation procedur es are not attempted. There are no clinical events. The patient does not drowse or sleep during the recording. There are no focal, lateralized, or epileptiform abnormalities. CLINICAL IMPRESSION: Normal awake EEG. [id number]/[facility] #: [id number]
[2019-06-30 12:02] VITALS: BP 105/76
--- NOTE | 2019-06-30 12:49 | PN ---
Subjective Date of Service: 06/30/19 Interval History: HOSPITALIST PROGRESS NOTE Patient seen and examined at bedside. Care reviewed and d/w Jhonny Navarro RN. Objective Active Medications: Acetaminophen (Tylenol Tab*) 650 mg PO Q4H PRN PRN Reason: MILD PAIN or TEMP > 100.4 Last Admin: 06/30/19 05:28 Dose: 650 mg Aspirin (Aspirin Ec Tab*) 81 mg PO DAILY [facility] Last Admin: 06/30/19 08:23 Dose: 81 mg Clopidogrel Bisulfate (Plavix Tab*) 75 mg PO DAILY [facility] Last Admin: 06/30/19 08:23 Dose: 75 mg Dextrose (D50w Syringe 50 Ml*) 12.5 gm IV PUSH .FOR FS < 60 - SS PRN PRN Reason: FS < 60 Insulin Human Lispro (Humalog*) 0 units [facility]; Protocol Last Admin: 06/30/19 12:33 Dose: Not Given Isosorbide Dinitrate (Isordil Tab*) 20 mg PO DAILY [facility] Last Admin: 06/30/19 08:23 Dose: 20 mg Losartan Potassium (Cozaar Tab*) 25 mg PO DAILY [facility] Last Admin: 06/30/19 08:22 Dose: 25 mg Metoprolol Tartrate (Lopressor Tab*) 25 mg PO DAILY [facility] Last Admin: 06/30/19 10:35 Dose: 25 mg Nitroglycerin (Nitroglycerin Tab 0.4 Mg*) 0.4 mg SL Q5M PRN PRN Reason: ANGINA Ondansetron HCl (Zofran Inj*) 4 mg IV Q4H PRN PRN Reason: NAUSEA/VOMITING Pantoprazole Sodium (Protonix Tab*) 40 mg PO DAILY [facility]; Protocol Last Admin: 06/30/19 08:23 Dose: 40 mg Rosuvastatin Calcium (Crestor (Nf)) 20 mg PO QPM [facility]; Protocol Last Admin: 06/29/19 19:35 Dose: 20 mg Vital Signs - 8 hr 06/30/19 06/30/19 06/30/19 07:24 08:30 12:01 Temperature 98.4 F 97.7 F Pulse Rate 56 56 Respiratory 16 16 16 Rate Blood Pressure 127/76 105/76 (mmHg) O2 Sat by Pulse 97 97 97 Oximetry Oxygen Devices in Use Now: None Result Diagrams: 06/30/19 05:21 06/30/19 05:21 Assess/Plan/Problems-Billing Assessment:
--- NOTE | 2019-06-30 13:21 | CONS ---
CC: Charles Menjivar MD; Vin Alford, [facility] CARDIOLOGY CONSULTATION NOTE: DATE OF CONSULTATION: 06/30/19 REASON FOR EVALUATION: Abnormal EKG, coronary artery disease. HISTORY OF PRESENT ILLNESS: This is a very pleasant 64-year-old gentleman known to me from previous evaluation last summer when he presented with chest pain, neck pain, arm pain, and a [id number] [place]. He underwent cardiac catheterization at that time and was found to have a critical 95% to 99% stenosis in the mid portion of the circumflex. He had a 2.5 x 16 mm Synergy stent placed, again intervention into the ostium of a small third OM branch with reduction of a critical 90% stenosis with balloon angioplasty to less than 30%. His other lesions include mild ostial 15% to 20% circumflex lesion, LAD had 30% to 35% stenosis in the proximal mid lesion, mid to distal artery became small caliber with an area of 40%. The LAD supplied a first diagonal, followed by another small caliber second diagonal which had a proximal narrowing of 40%. He had a 65% residual RCA lesion. The patient has continued to have left- sided chest achiness which is worse with lying down and taking a deep breath and it is improved with exercise. He has done well with cardiac rehab. He has had no syncope or near syncope. He was in his usual state of health until yesterday when he was sitting at a table doing homework with his granddaughter. He noticed that he smelled a sulfur smell and then developed an expressive aphasia. He could not remember his granddaughter's name. The symptoms lasted about an hour and a half. He came to the emergency room, was evaluated as a code mckenna. He is being worked up for his neurologic presentation. His was noted to be hypertensive at home, his blood pressure at home was 147/104. When he came to the emergency room, he was also noted to be hypertensive. His EKG showed new anterior T wave changes and troponin of 0.01. He was admitted for his neurologic symptoms to rule out CVA, rule out focal seizure, possible migraine with seizure, and rule out [place]. Today, he is feeling better and he still has mild headache, but he states that his expressive aphasia is resolved. He denies orthopnea, fever, chills, sweats, cough, hematemesis, hematochezia, urinary problems. The patient reports that he is able to walk up to a quarter mile without stopping for dyspnea or chest pain. He has been doing cardiac rehab with exertional chest pain. In fact, his chest pain symptoms actually improve with exertion. PAST MEDICAL HISTORY: Includes: 1. [id number] [place] in October of 2018 with stenting of his circumflex. 2. Hypertension. 3. Hyperlipidemia. 4. An episode similar to the current episode in 2011, which was labeled CVA, but he said it was similar to this presentation. 5. Sleep apnea with CPAP. 6. GERD. 7. Diabetes, type 2. PAST SURGICAL HISTORY: Includes: 1. Left shoulder surgery. 2. Left elbow tendon release. 3. Umbilical hernia repair. 4. Ventral hernia repair. 5. PCI in October 2018. 6. Bilateral knee arthroscopy. MEDICATIONS: His medications as an inpatient include: 1. Acetaminophen. 2. Aspirin 81 mg a day. 3. Clopidogrel 75 mg a day. 4. Insulin. 5. Isosorbide 20 mg daily. 6. Losartan 25 mg a day. 7. Metoprolol 25 mg a day. 8. Zofran p.r.n. 9. Protonix 40 mg a day. As an outpatient, he was also on rosuvastatin 20 mg a day. ALLERGIES: Include LORTAB, rash; OXYCODONE, shortness of breath and hallucinations; MUSCLE RELAXANT, tachycardia; BACITRACIN, rash; CONTRAST DYE; SHELLFISH; IODINE. FAMILY HISTORY: Includes mother at age 75 due to emphysema and a family history of heart disease and diabetes. SOCIAL HISTORY: He denies alcohol use. He drinks 1 cup of coffee a day. He quit tobacco use last october. He has 2 adult children and 3 grandchildren , 1 granddaughter lives with him. He lives with his girlfriend. REVIEW OF SYSTEMS: Review of systems x10 was negative except as above. PHYSICAL EXAM: He is a well-developed, well-nourished gentleman, in no apparent distress, overweight. Blood pressure 127/76, pulse of 56. No significant JVD. Carotids 2+ without bruits. No cervical adenopathy. No thyromegaly. Extraocular movements intact. Sclerae anicteric. Cardiac Exam: S1, S2 without murmurs, gallops, or rubs. Chest was clear. No CVAT. Abdomen: Obese. Bowel sounds present, nontender. Femoral pulses intact without bruits. Distal pulses intact. No edema. Motor strength 5/5 bilaterally. Deep tendon reflexes are 2/4. Alert and oriented x3. No slurred speech. DIAGNOSTIC STUDIES/LAB DATA: Labs include a normal CBC. Sodium at 138, potassium at 3.7, BUN of 14, creatinine of 1.2. Troponin was 0.01 yesterday, 0 today. EKG from today revealed sinus bradycardia, 56, with minor nonspecific ST changes , inferior lateral. EKG from yesterday revealed sinus rhythm at 65 with anterior T- wave inversions and ST depressions. Of note, his EKG from 11/02/18 revealed sinus bradycardia with inferolateral ST depressions and upright T waves. His head CTA from yesterday revealed no significant carotid stenosis or intracranial stenosis. Chest x-ray revealed no active cardiopulmonary disease. The patient had a stress echo on 10/20/18. At that time, he exercised for 15 minutes with a modified Tom to 10.1 METS. He had sinus bradycardia at rest, poor R-wave progression, minor nonspecific ST changes, had blunted heart response, normal blood pressure response, minor nonspecific inferolateral ST changes, no significant arrhythmias, fair exercise capacity to 10.1 METS. EF of 55% to 60% at rest and a normal hyperdynamic response 75% to 80% with stress. It was felt that he only achieved 71% of maximum predicted. It was felt to be a nondiagnostic stress echo due to low heart rate obtained, no evidence of ischemia at the low heart rate obtained, chronotropic insufficiency noted. He also had an echocardiogram performed on 05/30/19, which revealed an EF of 55 % to 60%, mild RVH, low normal RV function, mild AI, trace MR, trace TR, mild dilated aortic root. Interval improvement in EF compared to October 2018 when it was 50% to 55%. IMPRESSION: My impression is that Mr. Rudd has coronary artery disease, hypertension, abnormal EKG, and now an episode of neurologic findings raising possibility of a cerebrovascular accident versus migraine with seizure. He had transient EKG changes without troponin elevations. He has known residual ischemia based on his anatomy which was amenable to medical therapy. I suspect that the EKG changes may be related demand ischemia in the setting of apprehension and hypertension. He has been without anginal type chest pain over the last several months with good exercise capacity and had been doing cardiac rehab. For the time being, I recommend the followin. I would continue with his dual antiplatelet therapy and antianginal medicines as you are doing. 2. We will complete the neurologic workup as you are doing. 3. We will try to maintain his potassium over 4. 4. Would defer repeat evaluation for ischemia if he remains free of exertional angina. 5. If he has symptoms suggestive of exertional angina, we could consider a nuclear stress test. 6. It is my impression and hope that he will continue to do well with medical therapy from a coronary ischemia standpoint. 7. We will continue aggressive lipid lowering. 8. He was commended on stopping tobacco use. [id number]/[facility] #: [id number] addendum: echo today with nl ef, resolution of prior inferior hypokinesis in MTDJorge Alberto
--- NOTE | 2019-06-30 14:10 | CONS ---
NEUROLOGY CONSULTATION: DATE OF CONSULT: 06/30/19 HOSPITALIST: Dr. Ruiz. PRIMARY CARE PROVIDER: ELOY Ridley CHIEF COMPLAINT: Headache, difficulty with word finding. HISTORY OF PRESENT ILLNESS: Vidal Rudd is a 54-year-old right-handed man who I had seen previously last year prior to her cardiac catheterization for clearance. He was in his usual state of health yesterday with his son and granddaughter. He had an olfactory hallucination of burning sulfur, which he has had repeatedly now for several months. He then had difficulty recalling his family's names. He had problems remembering the name of his granddaughter. He developed a left hemicranial headache, which he has had recurrently about once per week now for a couple of years. After the course about an hour, he gradually recovered his ability to come up with names. He had his blood pressure checked at home and it was elevated at about 150/100, and so he presented to the emergency room. In the emergency room, his symptoms have resolved other than the left hemicranial headache. He had a CT scan of the brain which was interpreted as normal. I reviewed the images and I agree. He had a CT angiogram likewise interpreted as normal. He was felt to have an NIH Stroke Scale score of 1 due to some difficulty with word finding. He was admitted. He still has a left hemicranial headache and is not responding to Tylenol. He gets this about once per week, he says. Most of the time, Tylenol at home does work. He has had other episodes in the past of word finding difficulty followed by left hemicranial headache. It was felt to possibly be a transient ischemic attack. When I saw him last October prior to his cardiac catheterization; he reported about two other episodes. He also had an episode of squiggly light visual scotomata followed by a headache, which sounded to be a migraine with aura prior to my consultation last October. PAST MEDICAL HISTORY: His past medical history is notable for coronary artery disease leading to a stent in 2019. He has type 2 diabetes; hypertension; hyperlipidemia; sleep apnea, on CPAP; and gastroesophageal reflux. PAST SURGICAL HISTORY: Notable for multiple orthopedic surgeries. MEDICATIONS AT HOME: Consist of: 1. Metformin 500 mg p.o. b.i.d. 2. Lansoprazole 1 tablet p.o. daily. 3. Rosuvastatin 20 mg p.o. daily. 4. Metoprolol 25 mg p.o. daily. 5. Losartan 25 mg p.o. daily. 6. Isosorbide 20 mg p.o. daily. 7. Plavix 75 mg p.o. daily. 8. Aspirin 81 mg p.o. daily. 9. Acetaminophen 650 mg p.r.n. headache. ALLERGIES: He is allergic to HYDROCODONE, OXYCODONE, ATORVASTATIN. FAMILY HISTORY: Notable for mother passing away with emphysema at age 75. SOCIAL HISTORY: He lives at home with his son and granddaughter. He quit smoking last year. He does not drink alcohol on a regular basis. 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 REVIEW OF SYSTEMS: Otherwise notable for shortness of breath even at rest. He is doing cardiac rehab and states with exercise, he does not tend to get short of breath. He gets episodic chest pressure. His weight has been stable. He has not had any recent coughs or fevers. He is prone to heartburn. There have been no recent head injuries. There is no history of seizures. There is no history of meningitis or encephalitis. PHYSICAL EXAMINATION: He is well nourished and well hydrated. Temperature is 97.7, blood pressure 105/76, heart rate is in the 60s and regular, respiratory rate is 16, and oxygen saturation is 97% on room air. Heart tones are normal. There are no murmurs. Carotid pulses are intact and symmetric and there are no cervical bruits. Neck is supple. Lungs are clear bilaterally. Head is atraumatic. Oral mucosa is moist and atraumatic. Neurological Exam: Pupils, fundi, and eye movements are normal. Visual nicholas are full to confrontation. Facial musculature and facial sensation to light touch are intact and symmetric. Palate and tongue appear normal, tongue protrudes in the midline and palate rises symmetrically. Speech is clear without dysarthria. Shoulder shrug is normal. Hearing is intact bilaterally. Motor exam reveals normal tone and strength in the limbs. There is no drift of any limb. There is no sustention, rest, or action tremor. [id number] maneuver is normal bilaterally. Sensory exam in the limbs is intact to light touch. Reflexes are present and symmetric. Plantars are flexor bilaterally. He is alert and oriented to person, place, and time. Memory is intact and language is fluent. DIAGNOSTIC STUDIES/LAB DATA: Laboratory data includes a CT scan of the brain interpreted as normal. I reviewed the images and I agree. CT angiogram of the head and neck were likewise interpreted as normal. Other laboratory data is notable for an EEG done earlier today, which I reviewed and is normal awake EEG. His CBC was normal on presentation and again this morning. Chemistries are unremarkable other than a creatinine of 1.20 this morning and a glucose of 107. Urinalysis is unremarkable. IMPRESSION: Impression is that of an episode of word finding difficulty followed by a hemicranial headache most consistent with a complicated migraine. He has had a similar episode at least once if not twice before. He has also had an episode of visual scotomata followed by a hemicranial headache consistent with migraine with visual aura. Although he has cardiovascular diseasewhich is a risk factor I do not think this was a cerebrovascular event. He has already on dual antiplatelet therapy for his coronary artery disease. I do no think he needs any specific intervention as I do not think this was a cerebrovascular event. If he has recurrent headaches, I advised him that we could put him on a migraine preventative. At this point, most of his headaches resolved with over- the-counter analgesics and so I do not recommend any specific medical therapy. I advised the patient as to my opinion. I discussed my impression with Dr. Ruiz as well, who will arrange for his discharge to home. [id number]/[facility] #: [id number] RON
--- NOTE | 2019-06-30 14:32 | ECHO ---
*[facility]* [place] [address] Fax #: [phone] Transthoracic Echocardiogram Patient: Vidal Rudd : 1965 Study Date: 06/30/2019 Age: 54 Gender: M HR: 61 bpm Height: 64 in /162.6 cm BSA: 1.94 m^2 Weight: 195.6 lb /88.9 kg BMI: 33.6 kg/m^2 *Bungy Jump Master: Nancy Rodriguez *Referring Physician: * Lili Camacho *Reading Physician: * Charles Menjivar MD Indications: Abnormal EKG. History: Risk factors: Current tobacco use. Hypertension. Labs, prior tests, procedures, and surgery: Electrocardiography. Abnormal. Conclusions Summary: - Impressions: The study shows improvement since the study of 10/31/2018 with resolution of the ifnerioand lateral hypokinesis and improvement in the ejection fraction from 50-55% then to 60-65% now.. - Left ventricle: The cavity size is normal. Wall thickness is mildly increased. Systolic function is normal. The estimated ejection fraction is 60-65%. - Tricuspid valve: There is trace regurgitation. - Pulmonic valve: There is trace regurgitation. Study data: Transthoracic echocardiogram. Procedure: Transthoracic echocardiography was performed. Image quality was good. Complete 2D, spectral Doppler, and color flow Doppler. Location: Bedside. Patient status: Inpatient. Patient room number: 432-1. The previous study was not available, so comparison is made to the report of 10/31/2018. Rhythm: Normal sinus rhythm. Findings Left ventricle: The cavity size is normal. Wall thickness is mildly increased. Systolic function is normal. The estimated ejection fraction is 60-65%. Wall motion is normal; there are no regional wall motion abnormalities. Left ventricular diastolic function parameters are indeterminate. Right ventricle: The cavity size is normal. Wall thickness is mildly increased. Systolic function is normal. Ventricular septum: The ventricular septum is normal. Left atrium: The atrium is normal in size. Right atrium: The atrium is normal in size. Atrial septum: No defect or patent foramen ovale is identified. Mitral valve: The valve is structurally normal. There is no evidence of stenosis. There is trace regurgitation. Aortic valve: The valve is structurally normal. The valve is trileaflet. Cusp separation is normal. Transvalvular velocity is within the normal range. There is no evidence of stenosis. There is trace regurgitation. Tricuspid valve: The valve is structurally normal. There is no evidence of stenosis. There is trace regurgitation. Pulmonic valve: The valve is structurally normal. There is no evidence of stenosis. There is trace regurgitation. Aorta: The aortic root appears normal. Pericardium: There is no significant pericardial effusion. Pulmonary arteries: Systolic pressure can not be accurately estimated. Systemic veins: Inferior vena cava: The vessel is normal in size. There is (>= 50%) respiratory change in the IVC dimension. Pulmonary veins: The Pulmonary veins appear normal. Measurements Left ventricle Value Ref Aortic valve Value Ref ARJUN, LAX 4.6 cm 4.2 - 5.8 Peak v, S 1.29 m/sec ---- ESD, LAX 3.1 cm 2.5 - 4.0 VTI, S 26.3 cm ---- FS, LAX 32 % 25 - 43 Mean grad, S 3.0 mm Hg ---- PW, ED, LAX (H) 1.2 cm 0.6 - 1.0 Peak grad, S 7.0 mm Hg ---- E', lat bipin, TDI (L) 7.9 cm/sec >=10.0 YVAN, VTI 2.77 cm^2 ---- E/e', lat bipin, 9 YVAN, Vmax 2.00 cm^2 ---- TDI Mitral valve Value Ref LVOT Value Ref Peak E 0.69 m/sec ---- Diam, S 2.00 cm Peak A 0.79 m/sec ---- Area 3.1 cm^2 Decel time 195 ms ---- Peak chidi, S 0.82 m/sec Peak E/A ratio 0.9 ---- Mean grad, S 3 mm Hg SV 73 ml Pulmonic valve Value Ref Peak v, S 0.84 m/sec ---- Ventricular septum Value Ref Peak grad, S 3.0 mm Hg ---- IVS, ED (H) 1.2 cm 0.6 - 1.0 Aortic root Value Ref Right ventricle Value Ref Root diam 3.9 cm <4.1 AW thickness, ED (H) 0.6 cm 0.1 - 0.5 ARJUN, LAX 2.8 cm Ascending aorta Value Ref ARJUN minor ax, (H) 3.9 cm 1.9 - 3.5 AAo AP diam, S 3.2 cm ---- A4C mid Aortic arch Value Ref Left atrium Value Ref Arch diam 2.3 cm ---- AP dim, ES 3.50 cm 3.00 - 4.00 Decending aorta Value Ref ML dim, A4C 2.9 cm Angelo peak chidi 0.76 m/sec ---- SI dim, A4C 4.6 cm Vol/bsa, ES, 1-p 17 ml/m^2 12 - 37 Inferior vena cava Value Ref A4C Diam 2.5 cm ---- Right atrium Value Ref SI dim, ES 4.0 cm 3.4 - 5.3 ML dim, ES, A4C 4.0 cm 2.6 - 4.4 SI dim, ES, A4C 4.0 cm 3.4 - 5.3 Legend: (L) and (H) leta values outside specified reference range. Prepared and electronically signed by Charles Menjivar MD 06/30/2019 14:31
--- NOTE | 2019-07-01 12:11 | DS ---
CC: ANASTASIIA Ridley; Dr. Tam Jewell DATE OF ADMISSION: 06/29/2019. DATE OF DISCHARGE: 06/30/2019. DISCHARGE DIAGNOSIS: Complicated migraine. SECONDARY DIAGNOSES: 1. Coronary artery disease, status post stent. 2. Type 2 diabetes. 3. Hypertension. 4. Hyperlipidemia. 5. Sleep apnea. 6. GERD. MEDICATIONS: 1. Acetaminophen 650 mg p.o. q.8 hours prn pain. 2. Aspirin 81 mg p.o. daily. 3. Clopidogrel 75 mg p.o. daily. 4. Isosorbide Dinitrate 20 mg p.o. daily. 5. Lansoprazole 30 mg p.o. daily. 6. Losartan 25 mg p.o. daily. 7. Metformin 500 mg p.o. b.i.d. to be resumed on June 30 in the evening. 8. Metoprolol Tartrate 25 mg p.o. daily. 9. Nitroglycerin 0.4 mg sublingual q.5 minutes prn chest pain, maximum 3 doses. 10. Rosuvastatin 20 mg p.o. at bedtime. HOSPITAL COURSE: Mr. Rudd is a 54-year-old male with a past medical history as stated above who pre sented to the emergency room on June 28 with complaints of difficulty speaking. The patient has h ad episodes of headaches over his left eye, spreading to the left side of his head and those are usua lly preceded by sulfur smell. On the day of admission, he a similar episode of headaches with noise sensitivity and he was having difficulty remembering names of family members, then he could not under stand his speech and this quickly progressed to the point that he was unable to speak. He came to [facility] emergency room where a brandee mckenna was called and his NIH stroke scale at that time was 1. TPA was n ot indicated and this patient was admitted for further evaluation. He had a CT of the brain without contrast that showed no evidence of intracranial mass or hemorrhage. A CTA of the head with no branch occlusion; no aneurysmal dilatation; the carotid arteries and vert ebral arteries demonstrated no significant stenosis or dissection. A transthoracic echocardiogram sh owed an ejection fraction of 60 to 65 percent, improved from October 2018. By the time of admission, the patient's symptoms were already resolved. He had an EEG that a normal awake EEG. He was seen in consultation by Neurology (Dr. 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 The patient has had similar episodes with olfactory aura, but also had an episode of visual scotomata followed by hemicranial headache consistent with migraine wit h visual aura. Dr. Jewell felt that although the patient has cardiovascular disease, this episode w as not a cerebrovascular event. He did not think he needed any further specific intervention and his dual antiplatelet therapy for coronary artery disease should be continued. The patient states that i f he takes the Tylenol at the beginning of the symptoms, he is able to abort the episode, so he is ad vised to take Tylenol as soon as his symptoms start. If he continues to have frequent episodes, he wi ll follow-up with Neurology to discuss the possibility of putting him on a migraine preventative. The patient was asymptomatic at the time of discharge and felt comfortable going home. We do not think the patient had a stroke or a TIA at this time. We do not think this was a cerebrova scular event, so no further work-up is recommended at this time. The impression is that all of his s ymptoms were secondary to a complicated migraine. PHYSICAL EXAMINATION: General: The patient is a pleasant, middle-aged gentleman, sitting up in bed in no acute distress. Vital Signs: Temperature 97.7, heart rate 56, respiratory rate 16, oxygen sat uration 97 percent on room air, blood pressure 105/76. HEENT: Pupils are equal. Moist mucus membra chinyere. CVS: Normal S1, S2, regular rate and rhythm. Chest: Breath sounds bilaterally with no added sounds. Abdomen: Obese, soft, bowel sounds are present. Extremities: There is no pitting edema. N euro: The patient is alert, awake, oriented times three. Pupils are equal and reactive to light. Fa ce is symmetric. Speech is clear. He has normal tone and strength in all four limbs with no drifts. Sensation is intact bilaterally. DIET: Heart-healthy, consistent carb diet. ACTIVITY: As tolerated. DISPOSITION: To home. STATUS WHILE IN THE HOSPITAL: Observation. CONDITION ON DISCHARGE: Fair. Please keep in mind that this is a summarized version of this patient's hospital stay. If you need m ore information, please feel free to call me at or please obtain the full medical recor ds. TIME SPENT: Approximately 45 minutes were spent to complete this discharge. [id number]/[facility] #: [id number]
== END 2019-06-30 15:00 | disposition home or self-care (01) ==
LOC: ED 12:57 → INTOOBSV 14:54 → MEDTELE 14:54
PROVIDERS: ADMIT Internal Medicine; ATTEND Internal Medicine
DX: G43.109 Migraine with aura, not intractable, without status migrainosus (principal); I25.10 Atherosclerotic heart disease of native coronary artery without angina pectoris; Z95.5 Presence of coronary angioplasty implant and graft; E11.9 Type 2 diabetes mellitus without complications; I10 Essential (primary) hypertension; E78.5 Hyperlipidemia, unspecified; G47.30 Sleep apnea, unspecified; K21.9 Gastro-esophageal reflux disease without esophagitis; I25.2 Old myocardial infarction; E78.00 Pure hypercholesterolemia, unspecified; Z86.73 Personal history of transient ischemic attack (TIA), and cerebral infarction without residual deficits; R94.31 Abnormal electrocardiogram [ECG] [EKG]; R06.02 Shortness of breath; Z79.82 Long term (current) use of aspirin; Z79.899 Other long term (current) drug therapy; Z79.84 Long term (current) use of oral hypoglycemic drugs; Z88.6 Allergy status to analgesic agent; Z88.8 Allergy status to other drugs, medicaments and biological substances; Z87.891 Personal history of nicotine dependence; Z79.01 Long term (current) use of anticoagulants; Z79.4 Long term (current) use of insulin
CPT/HCPCS: 36415; 70450; 70496; 70498; 71045; 80048; 80053; 80061; 81003; 83605; 83880; 84484; 85025; 85610; 85730; 93005; 93306; 95816; 99285; A9270-GY; G0378; Q9967